=== PATIENT | male | born 1950 | race Caucasian/White ===

== ENCOUNTER → 2023-09-01 13:38 | Outpatient (REF) | payer MEDICARE, SELFPAY | LOC: RAD 13:38 | PROVIDERS: ATTENDING PHYSICIAN Student in an Organized Health Care Education/Training Program | DX: R06.09 Other forms of dyspnea (principal); R06.89 Other abnormalities of breathing | CPT/HCPCS: 71046 ==

== ENCOUNTER → 2023-09-08 07:29 | Outpatient (REF) | payer MEDICARE, SELFPAY | LOC: HWRAD 07:29 | PROVIDERS: ATTENDING PHYSICIAN Student in an Organized Health Care Education/Training Program | DX: J90 Pleural effusion, not elsewhere classified (principal); R06.02 Shortness of breath | CPT/HCPCS: 71250 ==

== ENCOUNTER → 2023-09-11 09:50 | Outpatient (REF) | payer MEDICARE, SELFPAY ==
[2023-09-11 10:07] VITALS: BP 113/76; BP_SYST 65
[2023-09-11 10:31] VITALS: BP 103/75
[2023-09-11 10:56] LABS: Body Fluid pH 7.48
[2023-09-11 11:20] LABS: Body Fluid WBC 111 /CUMM
[2023-09-11 11:45] LABS: Body Fluid Glucose 111 mg/dl; Body Fluid LDH 115 U/L; Body Fluid Protein 3.7 g/dl
[2023-09-11 11:53] LABS: Body Fluid Second Tech EF
== END ==
LOC: RADI 09:50
PROVIDERS: ATTENDING PHYSICIAN Internal Medicine Critical Care Medicine; FAMILY PHYSICIAN Student in an Organized Health Care Education/Training Program
DX: J90 Pleural effusion, not elsewhere classified (principal)
CPT/HCPCS: 88305; 32555; 71045; 82945; 83615; 83986; 84157; 87015; 87070; 87102; 87116; 87205; 87206; 88112; 89051

== ENCOUNTER → 2023-09-19 10:35 | Outpatient (REF) | payer MEDICARE, SELFPAY ==
[2023-09-19 11:05] VITALS: BP 114/78; BP_SYST 70
[2023-09-19 11:25] VITALS: BP 94/62; BP_SYST 66
[2023-09-19 11:45] VITALS: BP 94/62
== END ==
LOC: RADI 10:35
PROVIDERS: ATTENDING PHYSICIAN Internal Medicine Critical Care Medicine; FAMILY PHYSICIAN Student in an Organized Health Care Education/Training Program
DX: J90 Pleural effusion, not elsewhere classified (principal)
CPT/HCPCS: 88305; 32555; 71045; 88112; 88341; 88342

== ENCOUNTER → 2023-09-26 10:57 | Outpatient (REF) | payer MEDICARE, SELFPAY ==
[2023-09-26 11:10] VITALS: BP 115/62; BP_SYST 63
[2023-09-26 11:31] VITALS: BP 112/69
== END ==
LOC: RADI 10:57
PROVIDERS: ATTENDING PHYSICIAN Internal Medicine Critical Care Medicine; FAMILY PHYSICIAN Student in an Organized Health Care Education/Training Program
DX: J90 Pleural effusion, not elsewhere classified (principal); R06.02 Shortness of breath
CPT/HCPCS: 88305; 32555; 71045; 88112; 88341; 88342

== ENCOUNTER → 2023-10-01 10:32 | Outpatient (REF) | payer MEDICARE, SELFPAY | LOC: DHCBC MAIN 10:32 | PROVIDERS: ATTENDING PHYSICIAN Internal Medicine Critical Care Medicine; FAMILY PHYSICIAN Student in an Organized Health Care Education/Training Program | DX: R06.02 Shortness of breath (principal) | CPT/HCPCS: 93306 ==

== ENCOUNTER → 2023-10-07 09:12 | Outpatient (REF) | payer MEDICARE, SELFPAY | LOC: HWRAD 09:12 | PROVIDERS: ATTENDING PHYSICIAN Internal Medicine Critical Care Medicine; FAMILY PHYSICIAN Student in an Organized Health Care Education/Training Program | DX: R06.02 Shortness of breath (principal); J90 Pleural effusion, not elsewhere classified | CPT/HCPCS: 76700; 93975 ==

== ENCOUNTER → 2023-10-10 10:40 | Outpatient (REF) | payer MEDICARE, SELFPAY | LOC: RADI 10:40 | PROVIDERS: ATTENDING PHYSICIAN Internal Medicine Critical Care Medicine; FAMILY PHYSICIAN Student in an Organized Health Care Education/Training Program | DX: J90 Pleural effusion, not elsewhere classified (principal); R06.02 Shortness of breath | CPT/HCPCS: 32555; 71045 ==

== ENCOUNTER → 2023-10-20 10:05 | Outpatient (REF) | payer MEDICARE, SELFPAY ==
[2023-10-20 10:26] VITALS: BP 96/53; BP_SYST 88
[2023-10-20 10:50] VITALS: BP 110/72
== END ==
LOC: RADI 10:05
PROVIDERS: ATTENDING PHYSICIAN Internal Medicine Critical Care Medicine; FAMILY PHYSICIAN Student in an Organized Health Care Education/Training Program
DX: J90 Pleural effusion, not elsewhere classified (principal); R06.02 Shortness of breath
CPT/HCPCS: 32555; 71045; 71250

== ENCOUNTER → 2023-10-22 | Outpatient (REF) | payer MEDICARE, SELFPAY | LOC: DHSLP | PROVIDERS: ATTENDING PHYSICIAN Internal Medicine Critical Care Medicine; FAMILY PHYSICIAN Internal Medicine Critical Care Medicine | DX: G47.33 Obstructive sleep apnea (adult) (pediatric) (principal) | CPT/HCPCS: 95800 ==

== ENCOUNTER → 2023-11-10 10:01 | Outpatient (REF) | payer MEDICARE, SELFPAY ==
[2023-11-10 10:23] VITALS: BP 117/69; BP_SYST 55
[2023-11-10 10:57] VITALS: BP 100/74; BP_SYST 60
[2023-11-10 11:14] VITALS: BP 100/74
== END ==
LOC: RADI 10:01
PROVIDERS: ATTENDING PHYSICIAN Internal Medicine Critical Care Medicine
DX: J90 Pleural effusion, not elsewhere classified (principal); R06.02 Shortness of breath
CPT/HCPCS: 32555; 71045

== ENCOUNTER → 2023-11-19 10:05 | Outpatient (REF) | payer MEDICARE, SELFPAY ==
[2023-11-19 10:30] VITALS: BP 101/66; BP_SYST 60
[2023-11-19 11:05] VITALS: BP 109/65; BP_SYST 62
[2023-11-19 11:14] VITALS: BP 109/65
== END ==
LOC: RADI 10:05
PROVIDERS: ATTENDING PHYSICIAN Internal Medicine Critical Care Medicine; FAMILY PHYSICIAN Student in an Organized Health Care Education/Training Program
DX: J90 Pleural effusion, not elsewhere classified (principal); R06.02 Shortness of breath
CPT/HCPCS: 32555; 71045

== ENCOUNTER → 2023-12-03 06:49 | Outpatient (REF) | payer MEDICARE, SELFPAY ==
[2023-12-03] VITALS (11 sets, daily range): BP systolic 64–117; BP diastolic 69–80
[2023-12-03] MEDS: ANCEF 10 IV (08:20)
[2023-12-03 10:44] LABS: Body Fluid WBC 107 /CUMM
[2023-12-03 10:45] LABS: Body Fluid Mononuclear 97.2 %; Body Fluid Polymorphonuclear 2.8 %
[2023-12-03 10:47] LABS: Body Fluid Second Tech SS
== END ==
LOC: RADI 06:49
PROVIDERS: ATTENDING PHYSICIAN Internal Medicine Critical Care Medicine; FAMILY PHYSICIAN Student in an Organized Health Care Education/Training Program
DX: J90 Pleural effusion, not elsewhere classified (principal)
CPT/HCPCS: 32550; 75989; 89051; 99152; 99153; C1729; C1769

== ENCOUNTER 2023-12-12 06:12 | Day surgery (SDC) | payer MEDICARE, SELFPAY ==
[2023-11-28 10:20] VITALS: BMI 31.0
[2023-11-28 10:58] LABS: % Basophils 0.4 % (0-2); % Eosinophils 1.5 % (0-6); % Immature Granulocytes 0.4 % (0-0.5); % Monocytes 8.3 % (1.7-9.3); % Neutrophils 78.4 % (42.2-75.2); Absolute Eosinophils 0.1 10^3/uL (0-0.7); Absolute Lymphocytes 0.6 10^3/uL (1.2-3.4); Absolute Monocytes 0.4 10^3/uL (0.1-0.6); Absolute Neutrophils 4.1 10^3/uL (1.4-6.5); Hematocrit 34.6 % (39.0-52.0); Hemoglobin 11.3 g/dL (13.0-18.0); Mean Corp Hgb Conc. 32.7 g/dL (33.0-37.0); Mean Corpuscular Volume 95.1 fL (80.0-94.0); Mean Platelet Volume 11.3 fL (7.4-10.4); Nucleated Red Blood Cells % 0 % (-); Platelet Count 121 10^3/uL (130-400); Red Blood Cell Count 3.64 10^6/uL (4.70-6.10); Red Cell Dist. Width 16.6 % (11.5-14.5); White Blood Cell Count 5.3 10^3/uL (4.8-10.8)
[2023-11-28 11:37] LABS: ALT (SGPT) 22 U/L (0-50); AST (SGOT) 42 U/L (17-59); Albumin 3.6 g/dl (3.5-5.0); Alkaline Phosphatase 169 U/L (38-126); Blood Urea Nitrogen 63 mg/dl (9-20); Carbon Dioxide 26 mmol/L (22-30); Chloride 98 mmol/L (98-107); Estimated Creatinine Clearance 34 ml/min; Glucose 95 mg/dl (70-99); Sodium 135 mmol/L (135-145); Total Bilirubin 1.6 mg/dl (0.2-1.3); Total Protein 6.7 g/dl (6.3-8.2); eGFR 30.85
[2023-12-12] VITALS (9 sets, daily range): BP systolic 106–115; BP diastolic 62–69
--- NOTE | 2023-12-12 09:21 | ITS.CL.CATH ---
Administrative Intern - Catheterization
Cardiac Catheterization
Procedure Report:
RIGHT HEART CATHETERIZATION
Date of Procedure: 12/12/2023
Referring: Teresa Adamson M.D.
INDICATION: CHF, chronic kidney disease.
ACCESS:
5 [place] antecubital fossa using a modified Seldinger technique under ultrasound guidance.
CATHETERS:
5 [place] balloon wedge
PROCEDURE:
The patient was prepped and draped in standard sterile fashion. The area for antecubital access was anesthetized with 1% lidocaine. The right basilic vein was identified under ultrasound guidance then accessed using a modified Seldinger technique.
A 5 [place] sheath was inserted into the basilic vein. A 5 [place] balloon wedge catheter was advanced through the sheath into the superior vena cava. An SVC oxygen saturation was drawn. The balloon wedge catheter was advanced into the pulmonary
artery and a pulmonary artery oxygen saturation was drawn. Arterial oxygen saturation was assumed from pulse oximetry. Cardiac output was calculated using the Cassandra equation. The PA, wedge, RV and RA pressures were measured on pullback. The balloon
wedge catheter was removed. The 5 [place] sheath was removed and manual pressure was held for hemostasis.
Weight (kg): 95.3
PA (s/d/x mmHg): 68/29/39
PCWP (a/v/x mmHg): 33/50/30
RV (s/x mmHg): 60/27
RA (a/v/x mmHg): 32/31/28
SVC SvO2 (%): 50.9
IVC SvO2 (%): Not obtained.
RA SvO2 (%): Not obtained.
RV SvO2 (%): Not obtained.
PA SvO2 (%): 54.5
SaO2 (%): 96.0 (assumed)
Hbg (g/dL): 11.0
Cassandra
CO (liters/minute): 3.77
CI (liters/minute/m2): 1.79
Thermodilution
CO (liters/minute): Not obtained.
CI (liters/minute/m2): Not obtained.
TPG (mmHg): 9
PVR (Guido Units): 2.39
AVO2 Difference (Volume %): 6.21
Radiation (mGy): 9.54
DAP (cm2.Gy): 3.93
Fluoroscopy time (minutes): 1.9
CONCLUSION:
1. Severely elevated filling pressures (PCWP = 30 mmHg at 95.3 kg).
2. Severe, postcapillary pulmonary hypertension (68/29/39 mmHg, PVR = 2.39 Guido units).
3. Severely elevated V wave on wedge pressure, concerning for mitral valve regurgitation versus noncompliant left atrium.
4. Severely depressed systolic function (cardiac index = 1.79 L/min/m�).
RECOMMENDATIONS:
1. Expectant management after right heart catheterization via right antecubital approach.
2. Increase furosemide to 80 mg p.o. twice daily.
3. We will give a dose of furosemide 80 mg IV here.
4. Guideline directed medical therapy as hemodynamics will permit.
5. BMP in 1 week to monitor renal function and potassium levels.
6. Stable for outpatient follow-up.
Copy to: Teresa Adamson M.D., Yojana Clark M.D., Slime Heard M.D., Francie Chacko M.D.
Favio Hopkins D.O., FACC, FACP
[2023-12-12] MEDS: LASIX 80 MG IV (10:40)
--- NOTE | 2023-12-12 11:37 | PTCARENOTE ---
Pt recd post RHC. stat ECG completed. pt and family updated and understood elevated heart pressures. 80mg of lasix IV ordered and given . Pt voided 300ml of clear yellow uriine prior to d/c . Urinal sent with pt. Lasix dose increased and
understand, prior to d/c rt bachial site bleed a little and pressure applies . another DSD applied and no other concerns . Area soft non tender.
== END 2023-12-12 11:41 | disposition home or self-care (01) ==
LOC: CATH 06:12
PROVIDERS: ATTENDING PHYSICIAN Internal Medicine Cardiovascular Disease; FAMILY PHYSICIAN Student in an Organized Health Care Education/Training Program; OTHER PHYSICIAN Internal Medicine Cardiovascular Disease
DX: I25.5 Ischemic cardiomyopathy (principal); I13.0 Hypertensive heart and chronic kidney disease with heart failure and stage 1 through stage 4 chronic kidney disease, or unspecified chronic kidney disease; N18.30 Chronic kidney disease, stage 3 unspecified; I50.32 Chronic diastolic (congestive) heart failure; E78.5 Hyperlipidemia, unspecified; I48.0 Paroxysmal atrial fibrillation; I25.10 Atherosclerotic heart disease of native coronary artery without angina pectoris; I25.2 Old myocardial infarction; Z95.1 Presence of aortocoronary bypass graft; I27.29 Other secondary pulmonary hypertension; G47.33 Obstructive sleep apnea (adult) (pediatric); J90 Pleural effusion, not elsewhere classified; I73.00 Raynaud's syndrome without gangrene; E66.9 Obesity, unspecified; Z68.31 Body mass index [BMI] 31.0-31.9, adult; Z79.82 Long term (current) use of aspirin; Z79.84 Long term (current) use of oral hypoglycemic drugs
CPT/HCPCS: 36415; 80053; 85025; 93005; 93451; C1894

== ENCOUNTER → 2024-01-06 09:18 | Outpatient (REF) | payer MEDICARE, SELFPAY | LOC: RAD 09:18 | PROVIDERS: ATTENDING PHYSICIAN Internal Medicine Critical Care Medicine | DX: J90 Pleural effusion, not elsewhere classified (principal) | CPT/HCPCS: 71046 ==

== ENCOUNTER → 2024-01-20 11:59 | Outpatient (REF) | payer MEDICARE, SELFPAY ==
--- NOTE | 2024-01-20 12:20 | PTCARENOTE ---
1205 Patient to IR holding area via w/c. States last 2 times drained right ascept he had pain at insertion site, thinks catheter is out several inches.
Dressing removed and catheter cuff visible. Dr Rodriguez updated. Chest X-ray ordered.
--- NOTE | 2024-01-20 13:35 | PTCARENOTE ---
1235 Chest X-ray reviewed by Dr Gutierrez. Catheter removed by technologist and dressing applied.
--- NOTE | 2024-01-20 13:36 | PTCARENOTE ---
1250 When discharging patient discovered dressing saturated as well as shirt. Dressing removed and pressure applied. Abd and tegaderm to site. Requested to wait to observe for drainage.
--- NOTE | 2024-01-20 13:38 | PTCARENOTE ---
1315 after multiple dressing changes old site steri stripped and new dressing to site.
--- NOTE | 2024-01-20 14:34 | PTCARENOTE ---
1340 Dressing again changed,. ABD and large tegaderm to site. Sitting upright. Sts feels fine/ Dr Rodriguez aware of multiple dressing changes.
--- NOTE | 2024-01-20 14:36 | PTCARENOTE ---
1410 current dressing dry and intact. Requested patient to wait additional 5 minutes and move around more.
== END ==
LOC: RADI 11:59
PROVIDERS: ATTENDING PHYSICIAN Radiology Vascular & Interventional Radiology; REFERRING PHYSICIAN Internal Medicine Critical Care Medicine
DX: Z46.82 Encounter for fitting and adjustment of non-vascular catheter (principal)
CPT/HCPCS: 71045

== ENCOUNTER → 2024-01-22 13:04 | Outpatient (REF) | payer MEDICARE, SELFPAY ==
[2024-01-22 13:27] VITALS: BP 106/66; BP_SYST 59
[2024-01-22] MEDS: ANCEF 10 IV (13:49)
[2024-01-22 14:54] VITALS: BP 106/75
== END ==
LOC: RADI 13:04
PROVIDERS: ATTENDING PHYSICIAN Internal Medicine Critical Care Medicine
DX: J90 Pleural effusion, not elsewhere classified (principal); Z53.8 Procedure and treatment not carried out for other reasons

== ENCOUNTER → 2024-01-27 09:55 | Outpatient (REF) | payer OTHER, SELFPAY | LOC: RADI 09:55 | PROVIDERS: ATTENDING PHYSICIAN Internal Medicine Critical Care Medicine; FAMILY PHYSICIAN Student in an Organized Health Care Education/Training Program | DX: J90 Pleural effusion, not elsewhere classified (principal); Z53.8 Procedure and treatment not carried out for other reasons ==

== ENCOUNTER → 2024-02-06 06:24 | Outpatient (REF) | payer MEDICARE, SELFPAY | LOC: RADI 06:24 | PROVIDERS: ATTENDING PHYSICIAN Internal Medicine Critical Care Medicine | DX: J90 Pleural effusion, not elsewhere classified (principal); R18.8 Other ascites; Z53.8 Procedure and treatment not carried out for other reasons | CPT/HCPCS: 76604; 76705 ==

== ENCOUNTER 2024-02-06 08:11 | Emergency (ER) | payer MEDICARE, SELFPAY ==
[2024-02-06] VITALS (8 sets, daily range): BP systolic 51–114; BP diastolic 53–68
--- NOTE | 2024-02-06 08:42 | ED.GENMED ---
History of Present Illness
General
Chief Complaint: Abdominal Symptoms
Source: patient and records
Exam Limitations: none
Time Seen by Provider: 02/06/24 08:30
Nursing documentation reviewed up to this point in time: agreed with
History of Present Illness
History of Present Illness:
73-year-old male with a past medical history of hypertension, CHF, remote history of alcohol use (28 years ago he says) who presents to the emergency room for evaluation of abdominal distention. Patient says that he has had a catheter to drain
recurrent pleural effusion; he says that the catheter was dislodged about a month ago. He says that he has been to interventional radiology 3 times in the past month to attempt to have it replaced but pleural effusion does not seem to be
reaccumulating; today went to see if it needed replacement but was told that there was no significant effusion however he did have significant abdominal ascites which is a new issue for him and so he was sent to the emergency room. He says that he
has noticed increasing abdominal distention over the past month or so. He has not had any abdominal pain. He says that he does feel some trouble taking a deep breath due to abdominal distention. He denies any other symptoms such as fevers or
chills. He denies any nausea or vomiting. He denies any known liver issues and says that he is 28 years sober. He did notably have a cardiac catheterization with Dr. Mcmillan on 12/12/2023 which showed severe CHF.
Past History
Past History
ED Past Medical History: CAD, CHF and HTN
ED Past Surgical History: Cardiac (CABG), Cholecystectomy and Other (Hernia gallbladder)
Social History
Tobacco: Non-smoker
Alcohol: Former
Drug: None
Personal:
Living: with family
Employment: Retired
Family History
Family History: Hypertension
Review of Systems
Review of Systems
All Other Systems: ROS reviewed and negative except as documented in HPI and ROS
Constitutional: Denies fever
Respiratory: Reports trouble breathing; Denies cough
Cardiac: Denies chest pain
ABD/GI: Reports other (Abdominal distention); Denies abdominal pain, nausea or vomiting
: Denies flank pain
Musculoskeletal: Reports edema (Chronic); Denies neck pain or back pain
Neurological: Denies dizzy or headache
Phy Exam
Physical Exam
Physical Exam:
General: Awake, alert, oriented x3; no acute distress
Head: Normocephalic, atraumatic
Eyes: Conjunctiva normal, sclera anicteric
Throat: Airway intact, handling secretions
Neck: Trachea midline, supple without meningismus
Lungs: Somewhat diminished at the lung bases bilaterally; supple respiratory rate and work of breathing
Heart: Regular rate and rhythm
Abd: Soft, moderately distended with positive fluid wave, nontender to deep palpation
Neuro: No gross deficit
Skin: no rash
Extremities: Bilateral lower extremity edema, distal extremities are warm and well-perfused
Scores
Heart Failure Risk
Heart Failure Risk Score: Not Applicable
Heart Score for Chest Pain Patients
STEMI patient?: Not applicable
Withdrawal Assessment of Alcohol
Withdrawal Assessment Completed?: Not applicable
Course
Orders/Labs/Results
Orders:
Orders
02/06/24 08:26
Electrocardiogram (*1) Urgent
Reason for Study: Bradycardia / Tachycardia
02/06/24 08:27
EKG- Treatment ONCE
02/06/24 08:38
BNP [NT-proBNP] Urgent
CMP [Comprehensive Metabolic Panel] Urgent
Complete Blood Count/With Diff Urgent
02/06/24 08:39
IRAD CONSULT Routine
Consulting Provider: Remy Rodriguez
Was physician already notified: Yes
Reason for Consult/Procedure: paracentesis
Acknowledgement that appropriate orders are entered: Yes
CR Chest - 2 Views Urgent
Comment:
Reason For Exam: CHF
02/06/24 09:00
PTT Urgent
Prothrombin Time Urgent
02/06/24 09:17
Bedside Cytology Routine
Date Specimen was Collected: 02/06/24
Time Specimen was Collected: 10:30
Source: Peritoneal Fluid
Clinical Impression: cardiac ascites
IRAD Cytology Routine
Date Specimen was Collected: 02/06/24
Time Specimen was Collected: 10:30
Source: Peritoneal Fluid
Clinical Impression: cardiac ascites
02/06/24 10:33
Body Fluid Albumin Routine
Fluid Source: Peritoneal (Ascites)
Date Specimen was Collected: 02/06/24
Time Specimen was Collected: 10:30
Body Fluid Cell Count Routine
What is the Body Fluid: peritoneal fluid
Date Specimen was Collected: 02/06/24
Time Specimen was Collected: 10:30
Body Fluid LDH Routine
Fluid Source: Peritoneal (Ascites)
Date Specimen was Collected: 02/06/24
Time Specimen was Collected: 10:30
Body Fluid Protein Routine
Fluid Source: Peritoneal (Ascites)
Date Specimen was Collected: 02/06/24
Time Specimen was Collected: 10:30
Fluid Culture with Gram Stain Routine
BERT Source: Peritoneal Fluid
Specimen Description:
Date Specimen was Collected: 02/06/24
Time Specimen was Collected: 10:30
02/06/24 12:00
Albumin Human 25% 100 ml [Flexbumin] 25 grams in 100 ml IV TODAY
02/06/24 13:30
Albumin Human 25% 50 ml [Flexbumin] 12.5 grams in 50 ml IV TODAY
Abnormal Lab Results
02/06/24 02/06/24
08:38 09:00
RBC 3.77 L 10^6/uL
(4.70-6.10)
Hgb 11.9 L g/dL
(13.0-18.0)
Hct 35.7 L %
(39.0-52.0)
MCV 94.7 H fL
(80.0-94.0)
MCH 31.6 H pg
(27.0-31.0)
RDW 16.4 H %
(11.5-14.5)
Plt Count 115 L 10^3/uL
(130-400)
MPV 11.2 H fL
(7.4-10.4)
Absolute Lymphs (auto) 0.6 L 10^3/uL
(1.2-3.4)
Neutrophils % 76.8 H %
(42.2-75.2)
Lymphocytes % 10.7 L %
(20.5-51.1)
Monocytes % 11.0 H %
(1.7-9.3)
PT 17.1 H Sec
(11.4-14.6)
APTT 40.1 H Sec
(23.4-35.0)
Sodium 134 L mmol/L
(135-145)
Chloride 97 L mmol/L
(98-107)
BUN 59 H mg/dl
(9-20)
Creatinine 1.4 H mg/dL
(0.7-1.3)
Total Bilirubin 1.6 H mg/dl
(0.2-1.3)
Alkaline Phosphatase 135 H U/L
(38-126)
02/06/24 08:38
02/06/24 08:38
Vital Signs
Initial and Last Documented VS:
Initial Vital Signs
Temp Pulse Resp BP Pulse Ox
36.8 C 56 16 114/63 95
02/06/24 08:15 02/06/24 08:15 02/06/24 08:15 02/06/24 08:15 02/06/24 08:15
Last Documented Vital Signs
Temp Pulse Resp BP Pulse Ox
36.4 C 62 16 107/64 98
02/06/24 10:00 02/06/24 13:00 02/06/24 13:00 02/06/24 13:00 02/06/24 13:00
MDM/Problems Addressed
Differential Diagnosis Includes:
Abdominal ascites�differential would include cirrhosis, cardiac ascites, chronic ascites, SBP, malignancy
MDM/Problems Addressed:
73-year-old male with history as documented presents with increasing abdominal distention over the past month; had been in IR to have pleural effusion drained but there is no significant pleural effusion and noted to have new onset ascites and sent
to the ER for evaluation. He denies any abdominal pain or any other symptoms aside from some difficulty with deep breaths. Vital signs noted within normal limits. Will check basic labs including CBC and CMP, proBNP. Will check chest x-ray.
Check an EKG. Will send for paracentesis and send peritoneal fluid studies. Suspect likely cardiac ascites based on clinical picture. Reassess after the above.
Labs reviewed: CBC shows stable anemia, stable thrombocytopenia. CMP shows creatinine 1.4 which is baseline. proBNP 5600. Patient was sent [facility] for paracentesis and had 5600 cc of fluid drained. Discussed with GI we will order 37.5 g IV albumin
25%. Awaiting fluid analysis studies. Patient feeling well on reassessment after paracentesis. Feels that he is breathing easier.
Fluid analysis reviewed�patient with less than 500 WBCs, less than 250 PMNs, serum ascites albumin gradient is greater than 2, total protein greater than 2.5�these findings are consistent with cardiac ascites which was clinical suspicion. He is
already on medical therapy for congestive heart failure and in fact he has a follow-up appointment with cardiology within the next few days. I placed a call cardiology as well as to nephrology and discussed�patient had been on Lasix 80 mg twice
daily, nephrology switched to torsemide 40 mg twice daily about 2 weeks ago; will plan to add metolazone 2.5 mg 3 times per week, follow-up BMP on Friday and patient is scheduled to have cardiology visit on Friday at 9:30 AM. I think he is
stable for discharge at this point in time can follow-up as scheduled in the office. He feels comfortable with this�he is feeling much better. Spoke about return precautions and all questions answered.
Chronic conditions affecting care:
CHF
*Radiology
Radiology exam reviewed: radiology read reviewed
*Pulse Oximetry
Patient hypoxic: no
*EKG
Interpreted by ED Provider?: Yes
Comparison EKG: no changes
Heart Rate: 54
Rate: bradycardiac
Rhythm: sinus
[place]: right axis deviation
Interval: normal interval
QRS Pattern: wide non-specific
Ischemia: no ischemia
*Critical Care Note
Total Time (30-74mins, 75-104mins- exclusive of procedures): Not Applicable
Data Reviewed
Review of Other/Old Records Reveals: Labs, Records and Testing
Source: patient and records
Patient Management
Social determinants of health affecting care: Strong social support
Discussion with other providers: [employer] (Discussed with interventional radiology, discussed with gastroenterology, discussed with cardiology, discussed with nephrology)
ED Attending Note
-
Portions of this chart may have been created with voice recognition software.� Occasional wrong word or��sound alike� substitutions may have occurred due to the inherent limitations of voice recognition software.
Discharge Plan
Departure
Patient Disposition: Home (Routine Discharge)
Date of Disposition: 02/06/24
Time of Disposition: 12:09
Patient with high blood pressure during this ER visit?: No
Discharge Problem:
Abdominal ascites, CHF (congestive heart failure)
Instructions: Fluid in the Belly (Ascites) (DC), Abdominal Paracentesis (DC)
Prescriptions:
New
torsemide 20 mg tablet
40 mg PO BID 30 Days Qty: 120 0RF
metolazone 2.5 mg tablet
2.5 mg PO Q OTHER DAY Qty: 30 0RF
Discontinued
furosemide [Lasix] 80 mg tablet
80 mg PO BID Qty: 60 5RF
No Action
allopurinol 300 mg tablet
300 mg PO DAILY
cholecalciferol (vitamin D3) [Vitamin D3] 25 mcg (1,000 unit) Capsule
50 mcg PO DAILY
atorvastatin 80 mg tablet
80 mg PO DAILY
dapagliflozin propanediol [Farxiga] 10 mg tablet
10 mg PO DAILY
melatonin 5 mg Tablet
10 mg PO HS PRN (Reason: Sleep)
sennosides [senna] 8.6 mg Tablet
17.2 mg PO BID
aspirin 81 mg Capsule
81 mg PO DAILY
Referrals:
Yojana Clark MD [Family Provider] -
Aguila Adamson MD [Active] - 02/11/24 9:40 am
Activity Restrictions/Additional Instructions:
Thank you for visiting the Emergency Department at [facility].
1. Please schedule a follow up appointment as directed. Call first thing tomorrow morning to make an appointment.
2. If indicated, please take your medications as instructed and indicated on discharge paperwork.
3. If any of your symptoms do not improve, or persist, or become more severe within 6-12 hours, please return to the emergency department for further care.
4. Please return to the emergency department if you develop a headache, neck pain/stiffness, fever greater than 100.4F, chest pain, shortness of breath, persistent nausea, vomiting, slurred speech, difficulty walking, numbness/tingling, weakness,
signs of infection or any other symptoms that are worrisome to you.
Please call [phone] if you have any questions.
Interventions
Interventions:
*Risk Screen - Suicide Last Done: 02/06/24 08:15
*General Assessment Last Done: 02/06/24 08:15
*Neglect/Abuse Screening Last Done: 02/06/24 08:15
ED- Fall Risk Assessment Last Done: 02/06/24 08:25
*ED COVID-19 Vaccine History Last Done: 02/06/24 08:25
OY-Wbkgge-Ihcpsbefrw Assessment Last Done: 02/06/24 08:55
Discharge Date and Time
Print Language: TAMAZIGHT
[2024-02-06 09:12] LABS: % Basophils 0.4 % (0-2); % Eosinophils 0.7 % (0-6); % Immature Granulocytes 0.4 % (0-0.5); % Lymphocytes 10.7 % (20.5-51.1); % Neutrophils 76.8 % (42.2-75.2); Absolute Lymphocytes 0.6 10^3/uL (1.2-3.4); Absolute Monocytes 0.6 10^3/uL (0.1-0.6); Absolute Neutrophils 4.3 10^3/uL (1.4-6.5); Hematocrit 35.7 % (39.0-52.0); Hemoglobin 11.9 g/dL (13.0-18.0); Mean Corp Hgb Conc. 33.3 g/dL (33.0-37.0); Mean Corpuscular Hgb 31.6 pg (27.0-31.0); Mean Corpuscular Volume 94.7 fL (80.0-94.0); Mean Platelet Volume 11.2 fL (7.4-10.4); Nucleated Red Blood Cells % 0 % (-); Platelet Count 115 10^3/uL (130-400); Red Blood Cell Count 3.77 10^6/uL (4.70-6.10); Red Cell Dist. Width 16.4 % (11.5-14.5); White Blood Cell Count 5.5 10^3/uL (4.8-10.8)
[2024-02-06 09:36] LABS: NT-proBNP 5650 pg/ml
[2024-02-06 09:55] LABS: ALT (SGPT) 19 U/L (0-50); AST (SGOT) 46 U/L (17-59); Albumin 4.1 g/dl (3.5-5.0); Alkaline Phosphatase 135 U/L (38-126); Blood Urea Nitrogen 59 mg/dl (9-20); Calcium 9.4 mg/dl (8.4-10.2); Carbon Dioxide 26 mmol/L (22-30); Chloride 97 mmol/L (98-107); Estimated Creatinine Clearance 52 ml/min; Glucose 91 mg/dl (70-99); Potassium 3.5 mmol/L (3.5-5.1); Sodium 134 mmol/L (135-145); Total Bilirubin 1.6 mg/dl (0.2-1.3); Total Protein 6.9 g/dl (6.3-8.2); eGFR 52.74
[2024-02-06 10:06] LABS: INR 1.41; PT 17.1 Sec (11.4-14.6)
[2024-02-06 10:07] LABS: APTT 40.1 Sec (23.4-35.0)
[2024-02-06 11:20] LABS: Body Fluid WBC 155 /CUMM
[2024-02-06 11:22] LABS: Body Fluid Albumin 1.9 g/dl; Body Fluid LDH 111 U/L; Body Fluid Protein 3.7 g/dl; Body Fluid Second Tech EM
[2024-02-06] MEDS: FLEXBUMIN 100 IV (12:08)
[2024-02-06] MEDS: FLEXBUMIN 50 IV (13:57)
== END 2024-02-06 15:41 | disposition home or self-care (01) ==
LOC: EMR 08:11
PROVIDERS: CONSULT PHYSICIAN Radiology Vascular & Interventional Radiology; EMERGENCY PHYSICIAN Emergency Medicine; FAMILY PHYSICIAN Student in an Organized Health Care Education/Training Program
DX: I50.9 Heart failure, unspecified (principal); R18.8 Other ascites
CPT/HCPCS: 99285; 96374; 88305; 49083; 71046; 80053; 82042; 83615; 83880; 84157; 85025; 85610; 85730; 87015; 87070; 87205; 88112; 89051; 93005; P9047

== ENCOUNTER 2024-03-01 18:44 | Emergency (ER) | payer MEDICARE, SELFPAY ==
[2024-03-01 18:56] VITALS: BP 119/66
--- NOTE | 2024-03-01 19:36 | ED.GENMED ---
History of Present Illness
General
Chief Complaint: Skin Problem
Time Seen by Provider: 03/01/24 19:15
History of Present Illness
History of Present Illness:
73-year-old male presents the emergency department for evaluation of a persistent bleeding skin tear to the left forearm. He feels as though it was caused by removal of the bandage that had been placed by the hospital previously. He is on
anticoagulants
Past History
Past History
ED Past Medical History: CAD, CHF and HTN
ED Past Surgical History: Cardiac (CABG), Cholecystectomy and Other (Hernia gallbladder)
Social History
Tobacco: Non-smoker
Alcohol: Former
Drug: None
Personal:
Living: with family
Employment: Retired
Family History
Family History: Hypertension
Review of Systems
Review of Systems
Allergies reviewed?: Yes
All Other Systems: ROS reviewed and negative except as documented in HPI and ROS
Phy Exam
Physical Exam
Physical Exam:
GEN: Well appearing, NAD, WDWN
HEENT: Oral mucosa moist, no scleral icterus
Cardiac: Regular rate
Lung: No respiratory distress, no tachypnea
MSK: No gross deformity or injuries
Skin: Good color, no pallor or jaundice, no rashes. 2 cm x 1 cm superficial skin tear to the left dorsal forearm with active mild bleeding
Neuro: AO x3, moves all extremities freely
Psych: Calm, cooperative
Course
Orders/Labs/Results
Orders:
Orders
03/01/24 19:04
Acetaminophen [Tylenol] 1,000 mg .ROUTE .STK-MED ONE
Vital Signs
Initial and Last Documented VS:
Initial Vital Signs
Temp Pulse Resp BP Pulse Ox
98 F 70 16 119/66 100
03/01/24 18:56 03/01/24 18:56 03/01/24 18:56 03/01/24 18:56 03/01/24 18:56
Last Documented Vital Signs
Temp Pulse Resp BP Pulse Ox
98 F 70 16 119/66 100
03/01/24 18:56 03/01/24 18:56 03/01/24 18:56 03/01/24 18:56 03/01/24 18:56
MDM/Problems Addressed
MDM/Problems Addressed:
Surgicel dressing placed, educated patient on supportive care
*Critical Care Note
Total Time (30-74mins, 75-104mins- exclusive of procedures): Not Applicable
ED Attending Note
-
Portions of this chart may have been created with voice recognition software.� Occasional wrong word or��sound alike� substitutions may have occurred due to the inherent limitations of voice recognition software.
Discharge Plan
Departure
Patient Disposition: Home (Routine Discharge)
Date of Disposition: 03/01/24
Time of Disposition: 19:37
Patient with high blood pressure during this ER visit?: No
Discharge Problem:
Abrasion of forearm, left
Prescriptions:
No Action
allopurinol 300 mg tablet
300 mg PO DAILY
cholecalciferol (vitamin D3) [Vitamin D3] 25 mcg (1,000 unit) Capsule
50 mcg PO DAILY
atorvastatin 80 mg tablet
80 mg PO DAILY
dapagliflozin propanediol [Farxiga] 10 mg tablet
10 mg PO DAILY
melatonin 5 mg Tablet
10 mg PO HS PRN (Reason: Sleep)
sennosides [senna] 8.6 mg Tablet
17.2 mg PO BID
aspirin 81 mg Capsule
81 mg PO DAILY
torsemide 20 mg tablet
40 mg PO BID 30 Days Qty: 120 0RF
metolazone 2.5 mg tablet
2.5 mg PO Q OTHER DAY Qty: 30 0RF
Activity Restrictions/Additional Instructions:
The Surgicel dressing (the mesh) will dissolve over 7-14 days into the wound. This should allow your body to form a clot. Do not forcibly remove the mesh. You may wash the area around the wound, but do not scrub or apply soaps directly to the area
If the dressing falls off in less than 7 days, you should have enough healing tissue to prevent further bleeding
Interventions
Interventions:
*Risk Screen - Suicide Last Done: 03/01/24 18:56
*General Assessment Last Done: 03/01/24 18:56
*Neglect/Abuse Screening Last Done: 03/01/24 18:56
*Nursing Disposition Last Done: 03/01/24 20:22
ED-Skin Assessment Last Done: 03/01/24 20:21
Discharge Date and Time
Discharge Date/Time: 03/01/24 20:23
Print Language: VINCENTIAN
== END 2024-03-01 20:23 | disposition home or self-care (01) ==
LOC: EMR 18:44
PROVIDERS: EMERGENCY PHYSICIAN Emergency Medicine
DX: S50.812A Abrasion of left forearm, initial encounter (principal); X58.XXXA Exposure to other specified factors, initial encounter; I25.10 Atherosclerotic heart disease of native coronary artery without angina pectoris; I11.0 Hypertensive heart disease with heart failure; I50.9 Heart failure, unspecified; Z95.1 Presence of aortocoronary bypass graft; Z79.01 Long term (current) use of anticoagulants; Z90.49 Acquired absence of other specified parts of digestive tract
CPT/HCPCS: 99282

== ENCOUNTER → 2024-03-02 09:41 | Outpatient (REF) | payer MEDICARE, SELFPAY | LOC: RAD 09:41 | PROVIDERS: ATTENDING PHYSICIAN Nurse Practitioner; FAMILY PHYSICIAN Student in an Organized Health Care Education/Training Program | DX: I50.32 Chronic diastolic (congestive) heart failure (principal) | CPT/HCPCS: 78803; A9538 ==

== ENCOUNTER 2024-03-31 06:15 | Day surgery (SDC) | payer MEDICARE, SELFPAY ==
[2024-03-31 09:26] VITALS: BMI 26.1
[2024-03-31 09:27] VITALS: BP 98/59
[2024-03-31 11:06] VITALS: BP 84/54
[2024-03-31 11:15] VITALS: BP 85/59
[2024-03-31 11:30] VITALS: BP 92/73
== END 2024-03-31 12:02 | disposition home or self-care (01) ==
LOC: GI 06:15
PROVIDERS: ATTENDING PHYSICIAN Internal Medicine
DX: K22.89 Other specified disease of esophagus (principal); K31.89 Other diseases of stomach and duodenum; Z13.810 Encounter for screening for upper gastrointestinal disorder
CPT/HCPCS: 43239; 88305; 88342

== ENCOUNTER → 2024-04-12 10:28 | Outpatient (REF) | payer MEDICARE, SELFPAY | LOC: HWRAD 10:28 | PROVIDERS: ATTENDING PHYSICIAN Internal Medicine; FAMILY PHYSICIAN Student in an Organized Health Care Education/Training Program; REFERRING PHYSICIAN Internal Medicine Cardiovascular Disease | DX: N28.1 Cyst of kidney, acquired (principal); J90 Pleural effusion, not elsewhere classified | CPT/HCPCS: 71046; 76775 ==

== ENCOUNTER → 2024-05-12 08:40 | Outpatient (REF) | payer MEDICARE, SELFPAY ==
[2024-05-12 09:01] VITALS: BP 98/61; BP_SYST 62
[2024-05-12 09:44] VITALS: BP 92/61
[2024-05-12 10:44] LABS: Body Fluid Mononuclear 89.6 %; Body Fluid Polymorphonuclear 10.4 %; Body Fluid WBC 280 /CUMM
[2024-05-12 10:48] LABS: Body Fluid Second Tech ASW
== END ==
LOC: RADI 08:40
PROVIDERS: ATTENDING PHYSICIAN Internal Medicine; FAMILY PHYSICIAN Student in an Organized Health Care Education/Training Program
DX: R18.8 Other ascites (principal)
CPT/HCPCS: 49083; 87015; 87070; 87205; 89051

== ENCOUNTER 2024-05-12 10:27 | Outpatient (RCR) | payer MEDICARE, SELFPAY ==
[2024-05-12 10:44] VITALS: BP 90/48
[2024-05-12 10:46] VITALS: BP 90/48
[2024-05-12] MEDS: FLEXBUMIN 50 IV (10:46)
[2024-05-12 10:48] VITALS: BP 90/48
[2024-05-12 11:41] VITALS: BP 90/49
== END 2024-06-05 23:59 | disposition home or self-care (01) ==
LOC: OID 10:27
PROVIDERS: ATTENDING PHYSICIAN Internal Medicine; FAMILY PHYSICIAN Student in an Organized Health Care Education/Training Program
DX: R18.8 Other ascites (principal)
CPT/HCPCS: 96365; P9047

== ENCOUNTER 2024-06-25 22:55 | Inpatient (IN) | payer MEDICARE, SELFPAY ==
[2024-06-25 16:53] VITALS: BP 103/69
[2024-06-25 17:17] LABS: % Basophils 0.3 % (0-2); % Eosinophils 1.7 % (0-6); % Immature Granulocytes 0.6 % (0-0.5); % Lymphocytes 6.7 % (20.5-51.1); % Monocytes 11.6 % (1.7-9.3); % Neutrophils 79.1 % (42.2-75.2); Absolute Eosinophils 0.1 10^3/uL (0-0.7); Absolute Lymphocytes 0.4 10^3/uL (1.2-3.4); Absolute Monocytes 0.8 10^3/uL (0.1-0.6); Absolute Neutrophils 5.1 10^3/uL (1.4-6.5); Hemoglobin 9.5 g/dL (13.0-18.0); Mean Corp Hgb Conc. 33.9 g/dL (33.0-37.0); Mean Corpuscular Hgb 29.4 pg (27.0-31.0); Mean Corpuscular Volume 86.7 fL (80.0-94.0); Mean Platelet Volume 9.7 fL (7.4-10.4); Nucleated Red Blood Cells % 0 % (-); Platelet Count 106 10^3/uL (130-400); Red Blood Cell Count 3.23 10^6/uL (4.70-6.10); White Blood Cell Count 6.5 10^3/uL (4.8-10.8)
[2024-06-25 17:32] LABS: ALT (SGPT) 21 U/L (0-50); AST (SGOT) 45 U/L (17-59); Albumin 4.2 g/dl (3.5-5.0); Alkaline Phosphatase 85 U/L (38-126); Calcium 8.8 mg/dl (8.4-10.2); Carbon Dioxide 23 mmol/L (22-30); Chloride 83 mmol/L (98-107); Glucose 109 mg/dl (70-99); Potassium 3.5 mmol/L (3.5-5.1); Sodium 124 mmol/L (135-145); Total Bilirubin 1.1 mg/dl (0.2-1.3); eGFR 36.56
[2024-06-25 17:47] LABS: Blood Urea Nitrogen 145 mg/dl (9-20)
[2024-06-25 18:18] VITALS: BMI 27.0
[2024-06-25 19:00] VITALS: BP 91/66
[2024-06-25 20:00] VITALS: BP 91/66
--- NOTE | 2024-06-25 20:06 | ED.GENMED ---
History of Present Illness
General
Chief Complaint: Skin Problem
Source: patient
Exam Limitations: none
Time Seen by Provider: 06/25/24 19:25
Nursing documentation reviewed up to this point in time: agreed with
History of Present Illness
History of Present Illness:
Patient presents to ED secondary to nonhealing left heel wound, which has progressed to increased left lower leg swelling with redness. Denies fever or chills. Denies nausea or vomiting. Patient reports itching sensation without pain. Patient
reports initial injury to his left heel when he accidentally hit it against a hard surface. Denies previous history of skin infection. However, patient does have significant medical history, including recent admission at [facility] secondary to congestive heart failure. Patient also has stage III kidney disease, being followed by gin feeder at the outside hospital. Patient states that he has been urinating without difficulties. Per daughter at bedside, patient
mental status has not changed. Patient reports normal appetite.
Past History
Past History
ED Past Medical History: CAD, CHF and HTN
ED Past Surgical History: Cardiac (CABG), Cholecystectomy and Other (Hernia gallbladder)
Social History
Tobacco: Non-smoker
Alcohol: Former
Drug: None
Personal:
Living: with family
Employment: Retired
Family History
Family History: Hypertension
Review of Systems
Review of Systems
Allergies reviewed?: Yes
All Other Systems: ROS reviewed and negative except as documented in HPI and ROS
Constitutional: Reports no symptoms; Denies fever
Respiratory: Reports no symptoms; Denies trouble breathing
Cardiac: Reports no symptoms
ABD/GI: Reports no symptoms; Denies vomiting or diarrhea
: Reports no symptoms; Denies difficulty voiding
Musculoskeletal: Reports no symptoms
Skin: Reports other (heel open wound)
Neurological: Reports no symptoms
Phy Exam
Physical Exam
Physical Exam:
Physical Exam
General: no apparent distress, not acutely ill. afebrile
Head: nc/at. eomi
Neck: supple. normal range of motion.
Heart: s1/s2 regular rate and rhythm, no murmur. equal radial pulses.
Lungs: no acute respiratory distress. clear bilaterally
Abdomen: normal bowel sounds. not tender.
Neuro: alert and oriented x 3. no focal neurological deficits
Skin: left heel - skin tear/ulcer noted with serosanguineous drainage. Erythema extending up to knee noted with swelling
Psychiatric: well kept. interactive and cooperative
Extremities: LE b/l, nonpitting edema. no calf tenderness.
Sepsis
Sepsis Screening
Sepsis Assessment: Sepsis Ruled Out
Sepsis Screen
Sepsis Screen: Sepsis Ruled Out
Date: 06/26/24
Time: 03:05
Course
Orders/Labs/Results
Orders:
Orders
06/25/24 17:01
CMP [Comprehensive Metabolic Panel] Urgent
Complete Blood Count/With Diff Urgent
Magnesium Urgent
Comment: ADD ON
NT-proBNP Urgent
Comment: ADD ON
Serum Osmolality Urgent
Comment: ADD ON
06/25/24 19:56
Add On- LAB Urgent
Tests Added?: magnesium, ProBNP
Bladder Scan- Treatment ONCE
06/25/24 19:59
Piperacillin/Tazo 3.375 Gram [Zosyn] 3.375 gram in 50 ml IV NOW
06/25/24 20:13
Add On- LAB Urgent
Tests Added?: urine sodium, urine osm, serum osm
06/25/24 20:16
Vancomycin [Vancocin] 2,000 mg 0.9% Sodium Chloride 500 ml [Nss] 500 ml IV NOW
06/25/24 20:23
Lactic Acid Q4H
Comment: CANCEL 2nd LACTIC ACID IF 1st LACTIC ACID IS LESS THAN 2
Urinalysis Reflex To Culture Urgent
Date Specimen was Collected: 06/25/24
Time Specimen was Collected: 20:14
Urine Microscopic Reflex Cult Urgent
Blood Culture Q30M
BERT Source: Blood/Venous
Specimen Description:
06/25/24 20:38
Osmolality, Random Urine Urgent
Date Specimen was Collected: 06/25/24
Time Specimen was Collected: 20:14
Comment: ADD ON
Urine Sodium Urgent
Date Specimen was Collected: 06/25/24
Time Specimen was Collected: 20:14
Comment: ADD ON
Blood Culture Q30M
BERT Source: Blood/Venous
Specimen Description:
06/25/24 21:17
Ocampo Placement- Treatment ONCE
Reason for insertion: Acute Retention
06/25/24 22:00
Flush (0.9% Sodium Chloride) [Flush (Nss)] See Dose Instructions IV PER PROTOCOL
06/25/24 22:19
Consult Infectious Disease [INFECTIOUS DISEASE CONSULT] Routine
Consulting Provider: Mindy Ferro
Was physician already notified: No
Reason for consult: bilat lowr leg rash unclear
Consult Nephrology [NEPHROLOGY CONSULT] Routine
Consulting Provider: Gustavo Moreno
Was physician already notified: Yes
Reason for consult: Hyponatremia ckd 3b
Consult Notification Routine
Specialty to Notify: Infectious Disease
Consult Urology [UROLOGY CONSULT] Routine
Consulting Provider: Shan Schaffer
Was physician already notified: Yes
Comment: acute urinary retention ada ckd 3b
06/25/24 22:23
Admit/Transfer Patient As Directed
Co-Sign Provider:
Level of Care: Inpatient admission
Assign to:: Telemetry
Physician / Group: ricardo tee
Diagnosis: left heel ulcer,bilat leg rash, ada, acute urinary retention, hypoNA
Reason for Telemetry: Arrhythmia
Date to Stop Telemetry: 06/28/24
Time to Stop Telemetry: 11:00
Reason for Hospitalization: left heel ulcer,bilat leg rash, ada, acute urinary retention
Expected length of stay greater than two midnights?: Yes
ELOS- Estimated Length of Stay in days: 5
I certify the patient meets the requirements for IP care: Yes
Code Status As Directed
Resuscitation Status: Full Code
06/25/24 22:27
PRN Pain Medication Management As Directed
May give lesser potent ordered pain med per pt: Yes
preference::
Protocol:: Medication orders for pain may be administered in a
manner that supports deferring to patient preference
when the pt is:
- Requesting an ordered lesser potent pain medication.
Least to most potent pain medications are defined
as: acetaminophen < NSAID < tramadol < opioids
(morphine, oxycodone, hydromorphone).
- Requesting a lesser dose of the same medication IF
ORDERED.
- Requesting a less intrusive route of administration
if both routes are prescribed by the provider (PO <
IV).
06/26/24 00:23
VANCOMYCIN Pharmacy to Dose [VANCOCIN Pharmacy to Dose] 1 each Pharmacy To Prepare [Call Pharmacy To Prepare] 0 ml IV PER PROTOCOL
06/26/24 00:23
WOUND/OSTOMY CONSULT Routine
Reason for Consult: traumatic laft heel wound, bilat leg edema
Activity As Directed
Activity Level: With Assistance
Intake/ Output As Directed
Frequency: Per unit guidelines
Vital Signs As Directed
Frequency: Per unit guidelines
Weight As Directed
Frequency: Daily
Ot Eval And Treat Routine
Pt Eval And Treat Routine
Activity Level: With Assistance
DX Deep Vein Thrombosis Video Routine
06/26/24 01:07
Lactic Acid Q4H
Comment: CANCEL 2nd LACTIC ACID IF 1st LACTIC ACID IS LESS THAN 2
06/26/24 06:00
CRP [C-Reactive Protein] IN AM
Complete Blood Count/With Diff IN AM
Comprehensive Metabolic Panel IN AM
ESR [Erythrocyte Sed Rate] IN AM
Midodrine [ProAmatine] 5 mg PO TID@0600,1200,1700
06/26/24 08:00
Aspirin Low Dose EC [Aspir Low (Enteric Coated)] 81 mg PO DAILY
Cholecalciferol (Vitamin D3) [VITAMIN D3 (cholecalciferol)] 25 mcg PO DAILY
Dapagliflozin [Farxiga] 10 mg PO DAILY
Gabapentin [Neurontin] 100 mg PO TID
Heparin 5,000 units SC Q12
Potassium Chloride [KCl] 40 meq PO DAILY
Torsemide [Demadex] 100 mg PO BID
tafamidis [Vyndamax] See Dose Instructions PO DAILY
06/26/24 Dinner
Cholesterol Lowering
At Your Request: Full Participation
Fluid Restriction: 1000 mL/day (33 oz)
Cholesterol Lowering: Sodium, 2 Gram
06/27/24 06:00
Complete Blood Count/With Diff IN AM
Comprehensive Metabolic Panel IN AM
06/28/24 06:00
Complete Blood Count/With Diff IN AM
Comprehensive Metabolic Panel IN AM
06/28/24 11:00
DC Protocol for Telemetry ONCE
06/29/24 06:00
Complete Blood Count/With Diff IN AM
Comprehensive Metabolic Panel IN AM
Abnormal Lab Results
06/25/24 06/25/24
17:01 20:23
RBC 3.23 L 10^6/uL
(4.70-6.10)
Hgb 9.5 L g/dL
(13.0-18.0)
Hct 28.0 L %
(39.0-52.0)
RDW 16.0 H %
(11.5-14.5)
Plt Count 106 L 10^3/uL
(130-400)
Absolute Lymphs (auto) 0.4 L 10^3/uL
(1.2-3.4)
Absolute Monos (auto) 0.8 H 10^3/uL
(0.1-0.6)
Immature Gran % 0.6 H %
(0-0.5)
Neutrophils % 79.1 H %
(42.2-75.2)
Lymphocytes % 6.7 L %
(20.5-51.1)
Monocytes % 11.6 H %
(1.7-9.3)
Sodium 124 L mmol/L
(135-145)
Chloride 83 L mmol/L
(98-107)
BUN 145 H* mg/dl
(9-20)
Creatinine 1.9 H mg/dL
(0.7-1.3)
Glucose 109 H mg/dl
(70-99)
Serum Osmolality 305 H mOsm/kg
(275-300)
Magnesium 2.7 H mg/dl
(1.6-2.3)
Ur Occult Blood Reflex 1+ A
(Negative)
Urine RBC 3-6 A /HPF
(0-2)
Urine Glucose 1+ A
(Negative)
06/25/24 17:01
06/25/24 17:01
Vital Signs
Initial and Last Documented VS:
Initial Vital Signs
Pulse Resp BP Pulse Ox
93 16 103/69 94
06/25/24 16:53 06/25/24 16:53 06/25/24 16:53 06/25/24 16:53
Last Documented Vital Signs
Temp Pulse Resp BP Pulse Ox
97.9 F 93 16 99/63 100
06/26/24 00:13 06/26/24 00:13 06/26/24 00:13 06/26/24 00:13 06/26/24 00:13
MDM/Problems Addressed
MDM/Problems Addressed:
History and exam concerning for nonhealing heel ulcer, with development of cellulitis. In light of patient's chronic kidney disease and worsening renal function, patient will be admitted for IV antibiotics. Patient is high risk for potentially
developing bacteremia. As such, blood culture drawn. Broad-spectrum antibiotics ordered.
Bladder scan: > 600ml urine. Ocampo catheter placed.
*Critical Care Note
Total Time (30-74mins, 75-104mins- exclusive of procedures): Not Applicable
ED Attending Note
-
Portions of this chart may have been created with voice recognition software.� Occasional wrong word or��sound alike� substitutions may have occurred due to the inherent limitations of voice recognition software.
Discharge Plan
Departure
Patient Disposition: Admit
Date of Disposition: 06/25/24
Time of Disposition: 20:12
Presentation/result/management discussed w/ accepting MD/DO: Hospitalist
Discharge Problem:
Cellulitis, Hyponatremia, Acute urinary retention
Interventions
Interventions:
*Risk Screen - Suicide Last Done: 06/25/24 16:57
*General Assessment Last Done: 06/25/24 18:18
*Neglect/Abuse Screening Last Done: 06/25/24 16:57
ED- Fall Risk Assessment Last Done: 06/25/24 18:28
*ED COVID-19 Vaccine History Last Done: 06/25/24 18:18
*Nursing Disposition Last Done: 06/25/24 23:36
ED-Skin Assessment Last Done: 06/25/24 21:25
Discharge Date and Time
Discharge Date/Time: 06/25/24 23:40
[2024-06-25 20:08] LABS: Magnesium 2.7 mg/dl (1.6-2.3)
[2024-06-25 20:19] LABS: NT-proBNP 8290 pg/ml
[2024-06-25 20:29] LABS: Osmolality Serum 305 mOsm/kg (275-300)
[2024-06-25] MEDS: ZOSYN 50 IV (20:40)
[2024-06-25 20:51] LABS: Urine Albumin Negative (Neg - Trace); Urine Bilirubin Negative (Negative); Urine Character Clear (Clear); Urine Color Straw; Urine Glucose 1+ (Negative); Urine Ketone Negative (Negative); Urine Leukocyte Negative (Negative); Urine Nitrite Negative (Negative); Urine Occult Blood 1+ (Negative); Urine Urobilinogen Negative (Neg - 1+)
[2024-06-25 20:54] LABS: Osmolality Urine 306 mOsm/kg (300-900)
[2024-06-25 21:00] VITALS: BP 94/70
[2024-06-25 21:04] LABS: Lactic Acid 1.1 mmol/L (0.7-2.0)
[2024-06-25] MEDS: VANCOCIN 540 MG IV (21:05)
[2024-06-25] MEDS: FLUSH (NSS) 1 FLUSH IV (21:05)
[2024-06-25 21:07] LABS: Urine Sodium 32 mmol/L (30-90)
[2024-06-25 21:07] LABS: Urine White Cell 0-2 /HPF (0-5)
--- NOTE | 2024-06-25 21:36 | HPS.HSE ---
Family Physician
-
Family Physician: INTERVIEWE UNKNOWN - PT NOT
Chief Complaint
-
Bilateral lower leg rash, traumatic skin tear left heel
History of Present Illness
73-year-old male states he started approximately 1 week ago with bilateral macular erythematous pruritic rash to both legs extending into thighs then approximately 4 days ago he hit his left heel on a metal transition strip from the living room into
the kitchen he has a skin tear to the bottom of his left heel with a clean wound bed and current skin flap. He has +2 bilateral edematous legs that are weeping serous fluid. He is unable to wear his compressive stockings for the past week due to
+2 bilateral leg edema and left heel wound. He denies any fever, chills, chest pain, palpitations, shortness breath, cough, abdominal pain, nausea, vomiting, diarrhea. He had a recent admission 05/14 - 06/03/2024 at [facility] for
exacerbation of heart failure where his Lasix was increased from 80 mg to 100 mg twice daily. He states that he urinates frequently and feels relieved, but in the ER he had a Ocampo catheter inserted here which drained 1000 cc. The patient was
unaware he was retaining urine and had no urinary symptoms or pain. He has past medical history of CKD stage IIIb, ischemic cardiomyopathy EF 50-55% September 2023, chronic diastolic heart failure, chronic bilateral leg edema, orthostatic hypotension,
HTN�benign, CAD/AL/CABG x 3 vessel 2021, chronic anemia, chronic macrocytic anemia
HLD, PAF off anticoagulation due to unable to afford Eliquis, history of right retinal eye hemorrhage 2022, LBBB, bradycardia, restrictive lung disease, former smoker, pulmonary nodule, recurrent pleural effusions requiring thoracentesis,
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
Medical History
Past Medical History
Past Medical History: Reports Other
Additional Past Medical History:
CKD stage IIIb
ischemic cardiomyopathy EF 50-55% September 2023
chronic diastolic heart failure
chronic bilateral leg edema
orthostatic hypotension
HTN�benign
CAD/AL/CABG x 3 vessel 2021
chronic anemia, chronic macrocytic anemia
HLD
PAF off anticoagulation due to unable to afford Eliquis
history of right retinal eye hemorrhage 2022,
LBBB,
bradycardia
restrictive lung disease
former smoker
pulmonary nodule
recurrent pleural effusions requiring thoracentesis
obstructive sleep apnea status post uvulectomy
remote history hepatitis
Raynaud's disease
gout
insomnia
osteoarthritis
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
Past Surgical History: Reports Other
Additional Past Surgical History:
CAD/AL/CABG x 3 vessel 2021
Knee replacement
Hernia repair x 2
Cholecystectomy
Social History
Tobacco: Former Smoker (As teen)
Alcohol: Former (Quit 28 years ago)
Drug: None
Personal:
Living: With Family ( Robert)
Employment: Retired
Family History
Family History: Not pertinent
Allergies / Home Medications
Allergies reflects when Allergies were last updated in [facility].
Home Medications with original date entered in [facility]
Allergy/Medication List:
Allergies
Allergy/AdvReac Type Severity Reaction Status Date / Time
No Known Allergies Allergy Verified 05/12/24 10:48
Home Medications
cholecalciferol (vitamin D3) 25 mcg (1,000 unit) capsule (Vitamin D3) 25 mcg PO DAILY Supplement 03/18/22
midodrine 5 mg tablet 5 mg PO TID@0600,1200,1700 05/12/24
aspirin 81 mg tablet,delayed release 81 mg PO DAILY 06/25/24
dapagliflozin propanediol 10 mg tablet (Farxiga) 10 mg PO DAILY 06/25/24
gabapentin 100 mg capsule 100 mg PO TID 06/25/24
metolazone 2.5 mg tablet 2.5 mg PO DAILYPRN PRN excess swelling/weight gain 06/25/24
potassium chloride 20 mEq tablet,extended release(part/cryst) 40 meq PO DAILY 06/25/24
tafamidis 61 mg capsule (Vyndamax) 61 mg PO DAILY 06/25/24
torsemide 20 mg tablet 100 mg PO BID 06/25/24
Review of Systems
-
History Source: Patient
A 12 point ROS was completed and negative except as noted: Yes
Constitutional: Denies Fever, Weight Gain, Weight Loss, Fatigue or Chills
EENT: Denies Sore Throat or Runny Nose
Respiratory: Denies Cough or Trouble Breathing
Cardiac: Denies Chest Pain, Diaphoresis, Palpitations or Syncope
Abdomen/GI: Denies Abdominal Pain, Nausea, Vomiting, Diarrhea, Constipated, Bloody Stools or Black Stools
: Denies Dysuria, Frequency, Flank Pain, Incontinence, Difficulty Voiding or Urgency
Musculoskeletal: Reports Edema (Bilateral +2 lower leg edema weeping serous fluid, surrounding macular erythematous pruritic rash from upper thighs to lower ankles, left heel skin tear with skin flap surrounding wound bed intact with no drainage);
Denies Joint Pain
Skin: Reports Itching (Lower legs) and Rash (Thighs to lower legs)
Neurological: Denies Dizzy or Headache
Endocrine: Reports No Symptoms
Hematologic/Lymphatic: Reports No Symptoms
Psych: Reports Calm
Physical Exam
Vital Signs
Vital Signs
Pulse Resp BP Pulse Ox
96 16 94/70 100
06/25/24 21:15 06/25/24 21:15 06/25/24 21:00 06/25/24 20:45
Physical Exam
General: Comfortable and Conversant; No Pain, Fever or Chills
HEENT: NormoCephalic, Anicteric, Moist mucous membranes, PERRLA, [place] Conjunctivae and No Ptosis
Respiratory: Clear; No Wheezes, Rales or Rhonchi
Cardiac: S1/S2, Regular Rhythm and Peripheral Edema (Bilateral +2 lower leg edema weeping serous fluid, surrounding macular erythematous pruritic rash from upper thighs to lower ankles, left heel skin tear with skin flap surrounding wound bed intact
with no drainage); No Murmur, Rub, Gallop or JVD
Breast: Deferred by me
GI: Soft, Non Tender, Non Distended, Normal Bowel Sounds and No Hepatosplenomegaly
Rectal: Deferred by Provider
Genito-urinary: Ocampo (Ocampo inserted in ER drained 1000 cc clear urine)
Musculoskeletal: No Clubbing, No Cyanosis, Edema, Left Lower Extremity (Bilateral +2 lower leg edema weeping serous fluid, surrounding macular erythematous pruritic rash from upper thighs to lower ankles, left heel skin tear with skin flap
surrounding wound bed intact with no drainage) and Edema, Right Lower Extremity (Bilateral +2 lower leg edema weeping serous fluid, surrounding macular erythematous pruritic rash from upper thighs to lower ankles, left heel skin tear with skin flap
surrounding wound bed intact with no drainage); No Edema, Left Upper Extremity or Edema, Right Upper Extremity
Skin: Warm, Dry and Rash (Bilateral lower legs); No Jaundice
Neuro: AO x 3, No Motor Deficits, Nonfocal/grossly intact, Cranial Nerves Intact and No Sensory Deficits; No Slurred Speech, Facial Droop, Tremors or Sedated
Psych: Calm
Laboratory Results
-
06/25/24 17:01
06/25/24 17:01
Laboratory Results
Lactic Acid 1.1 mmol/L (0.7-2.0) 06/25/24 20:23
Total Bilirubin 1.1 mg/dl (0.2-1.3) 06/25/24 17:01
AST 45 U/L (17-59) 06/25/24 17:01
ALT 21 U/L (0-50) 06/25/24 17:01
Alkaline Phosphatase 85 U/L (38-126) 06/25/24 17:01
Impression/Plan
-
Impression/plan:
Admit to telemetry
#Traumatic left heel wound 2/2 hitting on metal transition strip 4 days ago
#Complicated healing due to +2 bilateral lower extremity edema
-Consult wound care
-Consult PT/OT/case management
#Bilateral lower legs to upper thighs MACULAR ERYHTEMATOUS PRUITIC RASH x 1 week�unclear etiology
Chronic +2 bilateral lower lower leg edema weeping serous fluid
No fever, chills
-Check blood culture x 2
-Check lactic acid,was given IV Zosyn single dose in ER
-IV vancomycin
-Consult infectious disease
-Check ESR, CRP
#Acute URINARY RETENTION with BARBARA
#BARBARA on CKD 3B
Creat 1.9/bun 145 prior creatinine 1.4 on 02/06/2024
-Patient follows with nephrology for CKD 3B
-Ocampo catheter placed in ER-drained 1 L fluid
-Urinalysis negative
-Consult urology�urinary retention
#Acute hyponatremia
NA 124
-Check urine osmo, urine NA, serum osmol, TSH with free T4 reflex
-Consult nephrology
-Fluid restrict 33 ounce
#Chronic diastolic CHF
#History of ischemic cardiomyopathy
BNP 8290, follow weights, intake and output
-Continue Tafamidis 61 mg daily
-Continue Farxiga 10 mg daily
-Continue midodrine 5 mg 3 times daily
-Follows with [facility]
-Patient would benefit from Charlie wraps for compressive dressings due to current left heel wound and +2 edema
-Continue Torsemide 100 mg twice daily(this was increased from 80 mg twice daily to 100 mg twice daily during May 2020 for admission at [facility])
2D echo 10/01/2023: EF 50-55% normal LVS LVSF, no wall abnormalities,
stage III diastolic dysfunction, normal right ventricle with reduced systolic function
estimated PASP 37 mmHg, mild to moderate MR
Hx right sided heart cath 12/12/2023:
1. Severely elevated filling pressures (PCWP = 30 mmHg at 95.3 kg).
2. Severe, postcapillary pulmonary hypertension (68/29/39 mmHg,
3. Severely elevated V wave on wedge pressure, concerning for mitral valve regurgitation versus noncompliant left atrium.
4. Severely depressed systolic function (cardiac index = 1.79 L/min/m�
#Pulm HTN on Cath 12/12/23
Severe, postcapillary pulmonary hypertension (68/29/39 mmHg
#Chronic neuropathy bilateral legs
-Continue gabapentin 100 mg 3 times daily
#Orthostatic hypotension/HTN�benign
BP 103/69
Continue midodrine 5 mg 3 times daily
#CAD/AL/CABG x 3 vessel 2021
-Continue aspirin 81 mg daily, Farxiga 10 mg daily
#Acute on chronic anemia
#Hx macrocytic anemia 02/06/2024
Hgb 9.5 Hgb 11.9 on 02/06/2024
#HLD
#PAF
No anticoagulation due to inability to afford Eliquis $233 per month he states has been off greater than 6 months
#History of right retinal eye hemorrhage 2022
-Was told he was able to resume anticoagulation but is unable to afford it
#Hx LBBB
#Hx bradycardia
#History restrictive lung disease
#Former smoker
#Hx pulmonary nodule
#History of recurrent pleural effusion requiring thoracentesis
#Obstructive sleep apnea status post uvulectomy
#Overweight�current BMI 27
Patient had history of obesity with BMI December has lost weight current BMI is 27
#Chronic ambulatory dysfunction
-Uses cane or walker for long distance
Other PMH:
Hx of hepatitis remote per patient
Raynaud's disease
Gout
Insomnia
Osteoarthritis
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
DVT prophylaxis
Subcu heparin
Full code per patient
[2024-06-25 22:00] VITALS: BP 112/96
--- NOTE | 2024-06-25 22:19 | W.PN.UPDATE ---
Update Note
Progress Note Update
Patient seen in conjunction with JAMAL. I concur with the findings on history and physical as well as the assessment and plan.
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
metolazone presenting to the emergency department with 1 week history of bilateral lower extremity erythema and pruritus. He saw his PMD who requested that he go to the emergency department due to pain however patient decided to come to dose on
hospital. He has been afebrile. He has a left flank excoriation following traumatic injury. No deep tissue changes.
In ED his blood pressure was 94/70 with a pulse of 76. Was not saturation was 100% on room air. He is BNP was elevated at 8000. White count was 6.5 hemoglobin 9.5 bili 106. He has sodium of 124, creatinine was 1.9 with a BUN of 145. While in
the emergency department he was found to have severe urinary retention. Urinary catheter was placed with removal of 1 L of clear urine. Patient denies history of BPH. He is unaware of any urinary symptoms including urgency, incontinence frequency
or hesitancy.
On my exam he has chronic bilateral lower extremity swelling and development of a pruritic erythematous maculopapular rash bilaterally in the lower extremity. There is some weeping. He does appear to have increased swelling compared to prior.
Bilateral cellulitis is generally unlikely however with chronic venous insufficiency and chronic swelling there is a possibility of this. He has been unable to use compression devices. I suspect urinary retention as limited is diuretic efficiency
and the patient and has had increased peripheral edema since. He denies any shortness of breath orthopnea or PND. He has baseline dyspnea on exertion.
Assessment and plan
Cellulitis -possible nonpurulent cellulitis with associated maculopapular rash versus an allergic process.
- admit to telemetry
- blood cultures
- Vancomycin IV for now
- check esr/crp panel
- ID consultation
- wound care consultation
BARBARA - Cr 1.9 with BUN of 149. Acute retention suspected. Denies h/o BPH. No significant anemia or GI bleed.
- s/p urinary catheter
- serial Cr/BUN
- consider U/S if no improvement in BUN
- urology consult
- nephrology consult
- will continue diuretics for now given severe heart failure.
Hyponatremia - U osm 300 on diuretics. Suspect hypervolemic hyponatremia and likely liberal fluid intake.
- free water restriction 1200
- continue diuretics
- orthostatics
- nephrology consult
CHF - chronic severe diastolic chf
- continue torsemide and tafamidis
- continue midodrine for hypotension
DVT PPX - heparin sq
Code status - full code
[2024-06-25 23:00] VITALS: BP 101/91
[2024-06-26] VITALS (8 sets, daily range): BP systolic 86–99; BP diastolic 48–68; PULSE 82; BMI 26.8; BMI 26.9
[2024-06-26 01:25] LABS: Lactic Acid 1.5 mmol/L (0.7-2.0)
[2024-06-26] MEDS: ProAmatine 5 MG PO ×3 (05:40→16:58)
[2024-06-26 07:11] LABS: ALT (SGPT) 20 U/L (0-50); AST (SGOT) 38 U/L (17-59); Albumin 3.6 g/dl (3.5-5.0); Alkaline Phosphatase 83 U/L (38-126); Calcium 8.6 mg/dl (8.4-10.2); Carbon Dioxide 26 mmol/L (22-30); Chloride 85 mmol/L (98-107); Estimated Creatinine Clearance 36 ml/min; Glucose 102 mg/dl (70-99); Potassium 2.9 mmol/L (3.5-5.1); Sodium 126 mmol/L (135-145); Total Bilirubin 1.1 mg/dl (0.2-1.3); Total Protein 6.2 g/dl (6.3-8.2); eGFR 39.01
[2024-06-26 07:23] LABS: Blood Urea Nitrogen 133 mg/dl (9-20)
[2024-06-26 07:25] LABS: % Basophils 0.4 % (0-2); % Eosinophils 1.8 % (0-6); % Immature Granulocytes 0.4 % (0-0.5); % Lymphocytes 5.7 % (20.5-51.1); % Monocytes 11.6 % (1.7-9.3); % Neutrophils 80.1 % (42.2-75.2); Absolute Eosinophils 0.1 10^3/uL (0-0.7); Absolute Lymphocytes 0.4 10^3/uL (1.2-3.4); Absolute Monocytes 0.8 10^3/uL (0.1-0.6); Absolute Neutrophils 5.5 10^3/uL (1.4-6.5); Hematocrit 26.7 % (39.0-52.0); Hemoglobin 8.7 g/dL (13.0-18.0); Mean Corp Hgb Conc. 32.6 g/dL (33.0-37.0); Mean Corpuscular Hgb 29.4 pg (27.0-31.0); Mean Corpuscular Volume 90.2 fL (80.0-94.0); Mean Platelet Volume 9.9 fL (7.4-10.4); Nucleated Red Blood Cells % 0 % (-); Platelet Count 96 10^3/uL (130-400); Red Blood Cell Count 2.96 10^6/uL (4.70-6.10); White Blood Cell Count 6.8 10^3/uL (4.8-10.8)
[2024-06-26 07:41] LABS: Erythrocyte Sed Rate 39 mm/hour (0-20)
--- NOTE | 2024-06-26 08:02 | PHA.VAN.IN ---
Assessment
- Assessment
Renal Function: Appears elevated from baseline
Maximum Temperature: 97.9
Plan
- Plan
Initial / Loading Dose: 2000mg 06/25 21:05 (24 mg/kg)
Maintenance Regimen: dose by level
Monitoring: Random 06/27 am
Pharmacokinetics Vancomycin I
- -
Patient Age: 73
Patient Sex: Male
Vancomycin Day #: 1
Indication: Skin And Soft Tissue (LE cellulitis and skin tear)
Requesting Provider: Iatlo Mei NP
Pertinent Antimicrobial Allergies:
no known allergies
Height / Weight:
Height 5 ft 9 in
Actual Weight 82.554 kg
Pertinent Past Medical History: CKDIII, HF with pedal edema
- Vital Signs / Lab Results
Temp Pulse Resp BP Pulse Ox
97.8 F 96 16 88/56 97
06/26/24 03:03 06/26/24 05:40 06/26/24 03:03 06/26/24 05:40 06/26/24 03:03
Lab Results - Hematology
06/25/24 06/26/24
17:01 06:27
WBC 6.5 6.8
Lab Results - Chemistry
06/25/24 06/26/24
17:01 06:27
BUN 145 H* 133 H*
Creatinine 1.9 H 1.8 H
Estimated Creat Clear 36
Albumin 4.2 3.6
06/25/24 06/26/24
20:23 01:07
Lactic Acid 1.1 1.5
Lab Results - Urine
06/25/24
20:23
Urine Nitrite (Reflex) Negative
Leukocyte Esterase Rfl Negative
Urine WBC (Reflex) 0-2
Ur Squamous Epith Cells 3-5
[2024-06-26] MEDS: FARXIGA 10 MG PO (09:12)
[2024-06-26] MEDS: NEURONTIN 100 MG PO ×3 (09:12→20:28)
[2024-06-26] MEDS: VITAMIN D3 (cholecalciferol) 25 MCG PO (09:13)
[2024-06-26] MEDS: KCL 40 MEQ PO (09:13)
[2024-06-26] MEDS: HEPARIN 5000 UNITS SC ×2 (09:13→20:28)
--- NOTE | 2024-06-26 09:24 | W.PN.HOSP.TC ---
Today's Communication/Plan
-
Continue antibiotics with Vanc, follow cultures, maintain Ocampo catheter, continue diuresis, follow BMP closely
Assessment / Plan
Assessment / Plan
Physical Exam
General: Not in acute distress
HEENT: Normocephalic
Respiratory: Clear to Auscultation Bilaterally
Cardiac: S1/S2, Regular Rhythm and Peripheral Edema (Bilateral +2 lower leg edema weeping serous fluid, surrounding macular erythematous pruritic rash from upper thighs to lower ankles, left heel skin tear with skin flap surrounding wound bed intact
with no drainage)
GI: Soft, Non Tender, Non Distended, Normal Bowel Sounds
Genito-urinary: Ocampo (Ocampo inserted in ER drained 1000 cc clear urine)
Musculoskeletal: No Cyanosis. Edema, Left Lower Extremity (Bilateral +2 lower leg edema weeping serous fluid, surrounding macular erythematous pruritic rash from upper thighs to lower ankles, left heel skin tear with skin flap surrounding wound bed
intact with no drainage) and Edema, Right Lower Extremity (Bilateral +2 lower leg edema weeping serous fluid, surrounding macular erythematous pruritic rash from upper thighs to lower ankles, left heel skin tear with skin flap surrounding wound bed
intact with no drainage)
Skin: Warm, Dry and Rash (Bilateral lower legs)
Neuro: AAO x 3, No Motor Deficits, Nonfocal/grossly intact, Cranial Nerves Intact and No Sensory Deficits
Psych: Calm
Assessment/Plan
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
presented to the emergency department with 1 week history of bilateral lower extremity erythema and pruritus. He saw his PMD who requested that he go to the emergency department due to pain, however patient decided to come to dose on hospital. He
has been afebrile. He has a left flank excoriation following traumatic injury. No deep tissue changes.
In ED his blood pressure was 94/70 with a pulse of 76. Was not saturation was 100% on room air. He is BNP was elevated at 8000. White count was 6.5 hemoglobin 9.5 bili 106. He had sodium of 124, creatinine was 1.9 with a BUN of 145. While in
the emergency department he was found to have severe urinary retention. Urinary catheter was placed with removal of 1 L of clear urine. Patient denies history of BPH. He is unaware of any urinary symptoms including urgency, incontinence frequency
or hesitancy.
On admission physical exam, he has chronic bilateral lower extremity swelling and development of a pruritic erythematous maculopapular rash bilaterally in the lower extremity. There is some weeping. He does appear to have increased swelling
compared to prior. Baseline dyspnea on exertion.
#Venous stasis Dermatitis - resolving
#Concern for bacteremia with gram positive cocci in clusters
-Follow blood cultures
-Start Vancomycin given initial results from blood cultures
-Infectious disease consulted on admission, appreciate evaluation and recommendations
-ESR elevated at 39 and CRP normal
#Traumatic left heel wound 2/2 hitting on metal transition strip 4 days ago
#Complicated healing due to +2 bilateral lower extremity edema
-Consult wound care
-Consult PT/OT/case management
#Acute Urinary Retention
#Acute kidney injury on chronic kidney disease with a baseline creatinine from February 2024 at 1.4
-Creat 1.9/bun 145 prior creatinine 1.4 on 02/06/2024
-Patient follows with nephrology for CKD 3B
-Continue Ocampo Catheter which was placed in the emergency department
-Okay to continue Torsemide for now
-Urinalysis negative
-Urology consulted on admission, appreciate evaluation and recommendations
-Nephrology consulted on admission, appreciate evaluation and recommendations
-Monitor BMP
-Consider ultrasound if no improvement in BUN
-Tamsulosin will be challenge right now with the patient's soft blood pressures
#Hyponatremia -- suspected Hypervolemic Hyponatremia
- PO FR 40 ounces
- Continue diuretics
- Orthostatics
- Nephrology consulted at the time of admission, appreciate evaluation
#Chronic diastolic CHF
#History of ischemic cardiomyopathy
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
-Continue Tafamidis 61 mg daily
-Continue Torsemide. And as needed Metolazone?
-Continue Farxiga 10 mg daily
-Continue midodrine 5 mg 3 times daily
-Follows with [facility]
-Patient would benefit from compression on the RLE and Tubigrip on the LLE
-Continue Torsemide 100 mg twice daily (this was increased from 80 mg twice daily to 100 mg twice daily during May 2020 for admission at [facility])
#Pulm HTN on Cath 12/12/23
Severe, postcapillary pulmonary hypertension (68/29/39 mmHg
#Chronic neuropathy bilateral legs
-Continue gabapentin 100 mg 3 times daily
#Orthostatic hypotension/HTN�benign
BP 103/69
Continue midodrine 5 mg 3 times daily
#CAD/AZ/CABG x 3 vessel 2021
-Continue aspirin 81 mg daily, Farxiga 10 mg daily
#Acute on chronic anemia
#Hx macrocytic anemia 02/06/2024
Hgb 9.5 Hgb 11.9 on 02/06/2024
#HLD
#PAF
No anticoagulation due to inability to afford Eliquis $233 per month he states has been off greater than 6 months
#History of right retinal eye hemorrhage 2022
-Was told he was able to resume anticoagulation but is unable to afford it
#Hx LBBB
#Hx bradycardia
#History restrictive lung disease
#Former smoker
#Hx pulmonary nodule
#History of recurrent pleural effusion requiring thoracentesis
#Obstructive sleep apnea status post uvulectomy
#Overweight�current BMI 27
Patient had history of obesity with BMI December has lost weight current BMI is 27
#Chronic ambulatory dysfunction
-Uses cane or walker for long distance
Other PMH:
History of hepatitis remote per patient
H/o resolved hep C (negative viral load 2021)
Raynaud's disease
Gout
Insomnia
Osteoarthritis
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
DVT Prophylaxis: Heparin subq
Code Status: Full code
Anticipated Discharge: 24 - 48 hours
Subjective/Interval History
-
Date of Service: June 26, 2024
Patient was seen and examined. He reported no chest pain or any other complaints.
Objective Data
-
Labs:
Laboratory Results
06/26/24
06:27
WBC 6.8
Hgb 8.7 L
Hct 26.7 L
Plt Count 96 L
Sodium 126 L
Potassium 2.9 L
Chloride 85 L
Carbon Dioxide 26
BUN 133 H*
Creatinine 1.8 H
Glucose 102 H
Calcium 8.6
Total Bilirubin 1.1
AST 38
ALT 20
Alkaline Phosphatase 83
Vital Signs:
Vital Signs
Temp Pulse Resp BP Pulse Ox
97.8 F 89 18 98/62 95
06/26/24 07:35 06/26/24 07:35 06/26/24 07:35 06/26/24 07:35 06/26/24 07:35
I&O
06/25/24 06/26/24 06/27/24
06:59 06:59 06:59
Intake Total 480 / 480
Output Total 1200 / 1200
Balance -720 / -720
[2024-06-26] MEDS: DEMADEX 100 MG PO ×2 (09:55→20:27)
[2024-06-26] MEDS: ASPIR LOW (ENTERIC COATED) 81 MG PO (09:55)
--- NOTE | 2024-06-26 10:48 | W.CON.NEPH ---
Consultation
-
Date/Time Consultation Requested: 06/25/2024 at 2200
Date/Time Consultation Performed: 06/26/2024 at 10 AM
Requesting Provider: gabino barnes
Performing Provider: Dr. Gustavo del real
Reason for Consultation: Acute on chronic kidney disease
Medical History
-
Chief Complaint: Acute on chronic kidney disease
History of Present Illness:
73-year-old male states he started approximately 1 week ago with bilateral macular erythematous pruritic rash to both legs extending into thighs then approximately 4 days ago he hit his left heel on a metal transition strip from the living room into
the kitchen he has a skin tear to the bottom of his left heel
He had a recent admission 05/14 - 06/03/2024 at [facility] for exacerbation of heart failure where his torsemide was increased from 80 mg to 100 mg twice daily.
in the ER he had a Ocampo catheter inserted here which drained 1000 cc. past medical history of CKD stage IIIb, ischemic cardiomyopathy EF 50-55% September 2023, chronic diastolic heart failure, chronic bilateral leg edema, orthostatic hypotension,
HTN�benign, CAD/TX/CABG x 3 vessel 2021, chronic anemia, chronic macrocytic anemia
Renal consult for acute on chronic kidney disease
Past Medical History
past medical history of CKD stage IIIb, ischemic cardiomyopathy EF 50-55% September 2023, chronic diastolic heart failure, chronic bilateral leg edema, orthostatic hypotension, HTN�benign, CAD/TX/CABG x 3 vessel 2021, chronic anemia, chronic macrocytic
anemia
Social History
Former alcohol and tobacco use
Family History
no history of renal disease
Allergies / Home Medications
Allergy/AdvReac Type Severity Reaction Status Date / Time
No Known Allergies Allergy Verified 05/12/24 10:48
�Medication �Instructions �Recorded �Confirmed �Type
cholecalciferol (vitamin D3) 25 25 mcg PO DAILY Supplement 03/18/22 06/25/24 History
mcg (1,000 unit) capsule (Vitamin
D3)
midodrine 5 mg tablet 5 mg PO TID@0600,1200,1700 05/12/24 06/25/24 History
aspirin 81 mg tablet,delayed 81 mg PO DAILY 06/25/24 06/25/24 History
release
dapagliflozin propanediol 10 mg 10 mg PO DAILY 06/25/24 06/25/24 History
tablet (Farxiga)
gabapentin 100 mg capsule 100 mg PO TID 06/25/24 06/25/24 History
metolazone 2.5 mg tablet 2.5 mg PO DAILYPRN PRN excess 06/25/24 06/25/24 History
swelling/weight gain
potassium chloride 20 mEq 40 meq PO DAILY 06/25/24 06/25/24 History
tablet,extended release(part/cryst)
tafamidis 61 mg capsule (Vyndamax) 61 mg PO DAILY 06/25/24 06/25/24 History
torsemide 20 mg tablet 100 mg PO BID 06/25/24 06/25/24 History
Review of Systems
-
Chronic lower extremity edema with diffuse rash of his lower extremities up to his thigh
All other systems: Negative unless noted
Physical Exam
Vital Signs
Vital Signs
Temp Pulse Resp BP Pulse Ox
97.8 F 89 18 98/62 95
06/26/24 07:35 06/26/24 07:35 06/26/24 07:35 06/26/24 07:35 06/26/24 07:35
Lab Results
WBC 6.8 10^3/uL (4.8-10.8) 06/26/24 06:27
RBC 2.96 10^6/uL (4.70-6.10) L 06/26/24 06:27
Hgb 8.7 g/dL (13.0-18.0) L 06/26/24 06:27
Hct 26.7 % (39.0-52.0) L 06/26/24 06:27
Plt Count 96 10^3/uL (130-400) L 06/26/24 06:27
Sodium 126 mmol/L (135-145) L 06/26/24 06:27
Potassium 2.9 mmol/L (3.5-5.1) L 06/26/24 06:27
Chloride 85 mmol/L (98-107) L 06/26/24 06:27
Carbon Dioxide 26 mmol/L (22-30) 06/26/24 06:27
BUN 133 mg/dl (9-20) H* 06/26/24 06:27
Creatinine 1.8 mg/dL (0.7-1.3) H 06/26/24 06:27
eGFR 39.01 06/26/24 06:27
Glucose 102 mg/dl (70-99) H 06/26/24 06:27
Calcium 8.6 mg/dl (8.4-10.2) 06/26/24 06:27
Dor-U-Rykdreuyohh Pept 8290 pg/ml 06/25/24 17:01
Albumin 3.6 g/dl (3.5-5.0) 06/26/24 06:27
Physical Exam
General no acute distress
HEENT no cephalic atraumatic extraocular muscle intact no scleral icterus no JVD neck supple
lungs clear to auscultation bilateral
heart regular S1-S2 positive
abdomen soft nontender positive bowel sounds
extremities +2 edema
Neurologically nonfocal alert and oriented x 3
Skin erythematous rash
Psych normal affect no bizarre behavior
Assessment/Plan
-
past medical history of CKD stage IIIb, ischemic cardiomyopathy EF 50-55% September 2023, chronic diastolic heart failure, chronic bilateral leg edema, orthostatic hypotension, HTN�benign, CAD/TX/CABG x 3 vessel 2021, chronic anemia, chronic macrocytic
anemia presents with lower extremity erythema and left foot lesion from a trauma recent admission for about 2 or 3 weeks for CHF [facility]
Acute on chronic kidney disease with a baseline creatinine from February 2024 at 1.4 spermicides 2.2 with presenting BUN of 145 and a creatinine of 1.9 with a serum sodium of 124 and potassium of 2.9
CHF superimposed with urinary retention
Lower extremity erythema
Anemia of chronic disease
Hyponatremia
Plan:
BARBARA with increased BUN to creatinine ratio greater than 20:1 on increased dose of torsemide with relative hypotension increasing the ADH effect causing hyponatremia and urinary retention
Maintain Ocampo catheter
Okay with torsemide for now but I will discuss continue the SGLT2 inhibitor
Fluid restrict to 40 ounces as he has been told to keep it around 60 ounces
Monitor strict urine output
May need to cut back on diuretics if azotemia persists
--- NOTE | 2024-06-26 11:15 | PTCARENOTE ---
Dr. Schulz made aware pt. with irregular rhythm at rest, Pt. asymptomatic. No new orders at this time.
--- NOTE | 2024-06-26 12:04 | CON.ID ---
Consultation
-
Date/Time Consultation Requested: 06/25/24 22:19
Date/Time Consultation Performed: 06/26/24 12:04
Requesting Provider: Sigifredo ONOFRE
Performing Provider: Dr Ferro
Reason for Consultation: bilat lowr leg rash unclear
Chief Complaint / Past History
Chief Complaint
Bilateral lower leg rash, traumatic skin tear left heel
History of Present Illness
Mr Zurita is a 73 year old male with chronic lymphedema, systolic and diastolic CHF (EF 50%), CKD III, prior Hep Cwho presented here on 06/25 for about a 1 week of a macular erythematous rash of the bilateral lower extremities with weaping
serous fluid. Then about 4 days ago he hit his heel on a metal transition script lacerating the L heel. He typically wears compression stockings but not currently able to tolerate them. No fevers or chills. Of note with an admission 05/14-06/03
at [facility] for CHF exacerbation with increase in his lasix.
Note previous + hep C testing which eventually cleared, however with possible repeat exposure with ex , retested after this in 2021 and viral load negative at that time.
Note he required a paracentesis 05/12/24 with 1.8 L removed, also paracentesis 02/06/24 with 5.6 L removed. He has also had multiple thoracentesis this year 11/18, 11/09, 10/19, 10/09, 09/25, 09/10 eventually with placement of a pleurex catheter.
Since arrival here she has been afebrile, bp persistent mild hypotension with MAPS mostly in the 70s, wbc 6.8, hgb 8.7, plt 96, L shift is noted, esr 39, na 124, bn 145, cr baseline 1.4 - on arrival 1.9 now 1.8, lactic acid 1.5, t bili 1.1, ast 45,
alt 21, alk phos 85, bnp 8000,
ER placed woodward with 1L urine drained. 'Im just here for my legs, and you've made those better, I want to leave.'
Past History
Additional Past Medical History:
CKD stage IIIb
ischemic cardiomyopathy EF 50-55% September 2023
chronic diastolic heart failure
chronic bilateral leg edema
orthostatic hypotension
HTN�benign
CAD/OH/CABG x 3 vessel 2021
chronic anemia, chronic macrocytic anemia
HLD
PAF off anticoagulation due to unable to afford Eliquis
history of right retinal eye hemorrhage 2022,
LBBB,
bradycardia
restrictive lung disease
former smoker
pulmonary nodule
recurrent pleural effusions requiring thoracentesis
obstructive sleep apnea status post uvulectomy
remote history hepatitis
Raynaud's disease
gout
insomnia
osteoarthritis
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
diverticulosis
resolved hep C
Additional Past Surgical History:
CAD/OH/CABG x 3 vessel 2021
Knee replacement
Hernia repair x 2
Cholecystectomy
Allergy History:
No Known Allergies Allergy (Verified 05/12/24 10:48)
Medications Reviewed: Yes
Social History
Tobacco: Former Smoker
Alcohol: Former (quit 28 years ago)
Drug: Former User (IVDA, no use in 26 years)
Family History
Family History: Not Pertinent
Review of Systems
Review of Systems
General: Negative Fever or Chills
All systems: All other systems were reviewed and were negative
Vital Signs
Temp Pulse Resp BP Pulse Ox
97.7 F 86 18 87/55 100
06/26/24 11:37 06/26/24 11:37 06/26/24 11:37 06/26/24 11:37 06/26/24 11:37
Physical Exam
Physical Exam
Constitutional: No Acute Distress
Cardiovascular: Regular Rate and S1/S2; Negative Murmur or Rub
Pulmonary: Clear and Symmetric; Negative Wheezes, Rales or Rhonchi
Gastrointestinal: Soft, Non Tender, Non Distended and Normal Bowel Sounds
Skin: Warm and Dry; Negative Rash or Jaundice
Wound: Other (L heel, clean, no surrounding erythema, warmth, tenderness or drainage; skin is well approximated)
Lab / Diagnostic Study Results
06/26/24 06:
06/26/24:
Abs Immat Gran (auto) 0.0 10^3/uL (0-0.05) 06/26/24:
Absolute Neuts (auto) 5.5 10^3/uL (1.4-6.5) 06/26/24:
Absolute Lymphs (auto) 0.4 10^3/uL (1.2-3.4) L 06/26/24:
Absolute Monos (auto) 0.8 10^3/uL (0.1-0.6) H 06/26/24:
Absolute Basos (auto) 0.0 10^3/uL (0-0.2) 06/26/24:
Immature Gran % 0.4 % (0-0.5) 06/26/24:
Neutrophils % 80.1 % (42.2-75.2) H 06/26/24:
Lymphocytes % 5.7 % (20.5-51.1) L 06/26/24:
Monocytes % 11.6 % (1.7-9.3) H 06/26/24:
Eosinophils % 1.8 % (0-6) 06/26/24:
Basophils % 0.4 % (0-2) 06/26/24:
ESR 39 mm/hour (0-20) H 06/26/24:
Lactic Acid 1.5 mmol/L (0.7-2.0) 06/26/24 01:07
C-Reactive Protein 10.00 mg/L (0.0-10.00) 12/21/24 06:27
Ur Squamous Epith Cells 3-5 /LPF (Few) 06/25/24 20:23
Microbiology Results
Micro:
06/25/24 20:23 Blood Culture - Pending
Blood/Venous
06/25/24 20:38 Blood Culture - Pending
Blood/Venous
Assessment / Plan
Venous stasis Dermatitis - resolving
combined systolic and diastolic CHF
H/o resolved hep C (negative viral load 2021)
Urinary retention
- blood cultures x2 no growth to date
- erythema has resolved with improving edema consistent with venous stasis
- L heel laceration clean, no erythema, healing
- no indication for antibiotics
- woodward management per urology/internal medicine
asking for discharge today, discussed with Dr Schulz who will make the final decision
Care Review
Plan reviewed with: Physician (Dr Schulz - patient requesting dc)
--- NOTE | 2024-06-26 12:08 | W.PN.URO.CBU ---
Today's Communication / Plan
-
Keep Ocampo
Would advise beginning tamsulosin when cleared medically
Assessment / Plan
-
BPH: untreated
Longstanding urine retention: confirmed 08/30
BARBARA
Diagnosis
-
Date of Service: June 26, 2024
-
Patient Diagnosis:
BPH
Urine retention: 1000 ml
BARBARA
---
Patient was found to be in urine retention with a post-void residual urine volume of 515 ml 09/01/23
Transrectal US revealed a 43 cc gland with median lobe enlargement
Medical and surgical options for management were discussed (Dr. Sales): patient declined treatment
Subjective
-
No catheter bother
No SP or CVAT
Objective
-
Vital Signs
Temp Pulse Resp BP Pulse Ox
97.7 F 86 18 87/55 100
06/26/24 11:37 06/26/24 11:37 06/26/24 11:37 06/26/24 11:37 06/26/24 11:37
Intake and Output
06/25/24 06/26/24 06/27/24
06:59 06:59 06:59
Intake Total 480 / 480
Output Total 1200 / 1200
Balance -720 / -720
Intake:
Oral fluids 480 / 480
Output:
Urine, Ocampo 1200 / 1200
Laboratory Results
06/26/24 06:27
06/26/24 06:27
Review of Systems
-
Respiratory: No Symptoms
Cardiac: No Symptoms
Abdomen/GI: No Symptoms
: No Symptoms
Physical Exam
-
General - no acute distress
Abdomen - soft, non-tender
Genitalia - Ocampo draining clear urine
Counseling
-
Patient will need outpatient follow up to advance his BPH/urine retention management
--- NOTE | 2024-06-27 01:51 | PTCARENOTE ---
Received pt with a HR 100-130. Tele strip appears to be a-v paced with several pacer spikes without a capture. Pt denies any chest pain or shortness of breath. VSS. JEMIMA Shaffer notified. Magnesium level added with Am lab collection. No other
new orders at this time and will continue to monitor.
[2024-06-27 03:55] VITALS: BP 98/65
[2024-06-27] MEDS: ProAmatine 5 MG PO ×3 (05:14→16:51)
[2024-06-27 06:00] VITALS: BMI 26.7
[2024-06-27 07:05] VITALS: BP 85/61
[2024-06-27] MEDS: KCL 40 MEQ PO ×2 (07:46→09:32)
[2024-06-27] MEDS: VITAMIN D3 (cholecalciferol) 25 MCG PO (07:46)
[2024-06-27] MEDS: NEURONTIN 100 MG PO ×3 (07:46→19:22)
[2024-06-27] MEDS: ASPIR LOW (ENTERIC COATED) 81 MG PO (07:46)
[2024-06-27] MEDS: DEMADEX 100 MG PO ×2 (07:46→19:22)
[2024-06-27] MEDS: HEPARIN 5000 UNITS SC ×2 (07:47→19:22)
[2024-06-27 07:58] LABS: % Basophils 0.4 % (0-2); % Eosinophils 1.5 % (0-6); % Immature Granulocytes 0.7 % (0-0.5); % Lymphocytes 7.9 % (20.5-51.1); % Neutrophils 77.5 % (42.2-75.2); Absolute Eosinophils 0.1 10^3/uL (0-0.7); Absolute Immature Granulocytes 0.1 10^3/uL (0-0.05); Absolute Lymphocytes 0.5 10^3/uL (1.2-3.4); Absolute Monocytes 0.8 10^3/uL (0.1-0.6); Absolute Neutrophils 5.2 10^3/uL (1.4-6.5); Hematocrit 27.1 % (39.0-52.0); Hemoglobin 8.7 g/dL (13.0-18.0); Mean Corp Hgb Conc. 32.1 g/dL (33.0-37.0); Mean Corpuscular Hgb 28.8 pg (27.0-31.0); Mean Corpuscular Volume 89.7 fL (80.0-94.0); Mean Platelet Volume 9.2 fL (7.4-10.4); Nucleated Red Blood Cells % 0 % (-); Platelet Count 97 10^3/uL (130-400); Red Blood Cell Count 3.02 10^6/uL (4.70-6.10); Red Cell Dist. Width 16.2 % (11.5-14.5); White Blood Cell Count 6.7 10^3/uL (4.8-10.8)
--- NOTE | 2024-06-27 08:19 | W.PN.HOSP.TC ---
Today's Communication/Plan
-
Continue Vancomycin
Concern for possible vegetation(s) -- echo
Continue Ocampo Catheter
Potassium replaced
Monitor CBC, BMP
Assessment / Plan
Assessment / Plan
Physical Exam
General: Not in acute distress
HEENT: Normocephalic
Respiratory: Clear to Auscultation Bilaterally
Cardiac: S1/S2, Regular Rhythm and Peripheral Edema (Bilateral +2 lower leg edema weeping serous fluid, surrounding macular erythematous pruritic rash from upper thighs to lower ankles, left heel skin tear with skin flap surrounding wound bed intact
with no drainage)
GI: Soft, Non Tender, Non Distended, Normal Bowel Sounds
Genito-urinary: Ocampo (Ocampo inserted in ER drained 1000 cc clear urine)
Musculoskeletal: No Cyanosis. Edema, Left Lower Extremity (Bilateral +2 lower leg edema weeping serous fluid, surrounding macular erythematous pruritic rash from upper thighs to lower ankles, left heel skin tear with skin flap surrounding wound bed
intact with no drainage) and Edema, Right Lower Extremity (Bilateral +2 lower leg edema weeping serous fluid, surrounding macular erythematous pruritic rash from upper thighs to lower ankles, left heel skin tear with skin flap surrounding wound bed
intact with no drainage)
Skin: Warm, Dry and Rash (Bilateral lower legs)
Neuro: AAO x 3, Nonfocal/grossly intact
Psych: Calm
Assessment/Plan
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
presented to the emergency department with 1 week history of bilateral lower extremity erythema and pruritus. He saw his PMD who requested that he go to the emergency department due to pain, however patient decided to come to dose on hospital. He
has been afebrile. He has a left flank excoriation following traumatic injury. No deep tissue changes.
In ED his blood pressure was 94/70 with a pulse of 76. Was not saturation was 100% on room air. He is BNP was elevated at 8000. White count was 6.5 hemoglobin 9.5 bili 106. He had sodium of 124, creatinine was 1.9 with a BUN of 145. While in
the emergency department he was found to have severe urinary retention. Urinary catheter was placed with removal of 1 L of clear urine. Patient denies history of BPH. He is unaware of any urinary symptoms including urgency, incontinence frequency
or hesitancy.
On admission physical exam, he has chronic bilateral lower extremity swelling and development of a pruritic erythematous maculopapular rash bilaterally in the lower extremity. There is some weeping. He does appear to have increased swelling
compared to prior. Baseline dyspnea on exertion.
#Venous stasis Dermatitis
#Coagulase Neg. Staph Bacteremia
-Follow blood cultures as well as repeat blood cultures
-Continue Vancomycin
-Infectious disease consulted on admission, appreciate evaluation and recommendations
-ESR elevated at 39 and CRP normal
-TTE and possibly YANI (which would check for lead vegetations) -- cardiology onboard, as below
-Might be contamination as per ID, but continue Vanco and echo
#Traumatic left heel wound 2/2 hitting on metal transition strip 4 days ago
#Complicated healing due to +2 bilateral lower extremity edema
-Consult wound care
-Consult PT/OT/case management
#Acute Urinary Retention
#Acute kidney injury on chronic kidney disease with a baseline creatinine from February 2024 at 1.4
-Creat 1.9/bun 145 prior creatinine 1.4 on 02/06/2024
-Patient follows with nephrology for CKD 3B
-Continue Ocampo Catheter -- but patient reported having performed self catheterization years ago and wants to resume it at the time of discharge, so he can have his Ocampo catheter removed at some point in the
near future
-Okay to continue Torsemide for now
-Urinalysis negative
-Urology consulted on admission, appreciate evaluation and recommendations
-Nephrology consulted on admission, appreciate evaluation and recommendations
-Monitor BMP
-Tamsulosin will be challenge right now with the patient's soft blood pressures
#Hyponatremia -- suspected Hypervolemic Hyponatremia
- PO FR 40 ounces
- Continue diuretics
- Orthostatics
- Nephrology consulted at the time of admission, appreciate evaluation
#Hypokalemia
-Replaced, continued to monitor BMP
-Magnesium elevated
#Heart failure with recovered ejection fraction
#History of ischemic cardiomyopathy
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
-Continue Tafamidis 61 mg daily (amyloid CM followed by Dr. Cullen at [place])
-Continue Torsemide. And as needed Metolazone?
-Continue Farxiga 10 mg daily
-Continue midodrine 5 mg 3 times daily
-Follows with [facility] cardiology
-Patient would benefit from compression on the RLE and Tubigrip on the LLE
-Continue Torsemide 100 mg twice daily (this was increased from 80 mg twice daily to 100 mg twice daily during May 2020 for admission at [facility])
-Farxiga being held due to BARBARA
-Additional GDMT has been limited by hypotension
#BiV ICD ([facility], 05/2024)
-Placed for sinus node dysfunction, chronotropic incompetence, and VT lasting up to 25 beats
-Given concern with intermittent tachycardia, need for device interrogation, and bacteremia with BiV ICD, cardiology was consulted for this reason
-Device interrogation pending
#Pulmonary Hypertension
#Chronic neuropathy bilateral lower extremities
-Continue gabapentin 100 mg 3 times daily
#Orthostatic hypotension
#History of Hypertension
-Continue Midodrine
#CAD/RI/CABG x 3 vessel 2021
-Continue aspirin 81 mg daily
#Acute on chronic anemia
#Hx macrocytic anemia 02/06/2024
-Continue to monitor CBC
#Hyperlipidemia
#Atrial flutter/fibrillation status post PVI
-No anticoagulation due to inability to afford Eliquis $233 per month he states has been off greater than 6 months?
-Given patient's Amyloid, patient needs anticoagulation -- cardiology will look into this
#History of right retinal eye hemorrhage 2022
-Was told he was able to resume anticoagulation but is unable to afford it
#Hx LBBB
#Hx bradycardia
#History restrictive lung disease
#Former smoker
#Hx pulmonary nodule
#History of recurrent pleural effusion requiring thoracentesis
#Obstructive sleep apnea status post uvulectomy
#Overweight
Patient had history of obesity with BMI December has lost weight current BMI is 27
#Chronic ambulatory dysfunction
-Uses cane or walker for long distance
Other PMH:
History of hepatitis remote per patient
H/o resolved hep C (negative viral load 2021)
Raynaud's disease
Gout
Insomnia
Osteoarthritis
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
DVT Prophylaxis: Heparin subq
Code Status: Full code
Anticipated Discharge: > 48 hours
Subjective/Interval History
-
Date of Service: June 27, 2024
Patient was seen and examined. He denied any fever or any other symptoms.
Objective Data
-
Labs:
Laboratory Results
06/27/24
07:46
WBC 6.7
Hgb 8.7 L
Hct 27.1 L
Plt Count 97 L
Sodium Pending
Potassium Pending
Chloride Pending
Carbon Dioxide Pending
BUN Pending
Creatinine Pending
Glucose Pending
Calcium Pending
Total Bilirubin Pending
AST Pending
ALT Pending
Alkaline Phosphatase Pending
Vital Signs:
Vital Signs
Temp Pulse Resp BP Pulse Ox
97.2 F 81 20 98/65 98
06/27/24 03:55 06/27/24 05:14 06/27/24 03:55 06/27/24 05:14 06/27/24 03:55
I&O
06/26/24 06/27/24 06/28/24
06:59 06:59 06:59
Intake Total 480 / 480 960 / 960
Output Total 1200 / 1200 3220 / 3220
Balance -720 / -720 -2260 / -2260
[2024-06-27 08:22] LABS: ALT (SGPT) 22 U/L (0-50); AST (SGOT) 39 U/L (17-59); Albumin 3.7 g/dl (3.5-5.0); Alkaline Phosphatase 89 U/L (38-126); Calcium 8.5 mg/dl (8.4-10.2); Carbon Dioxide 25 mmol/L (22-30); Chloride 87 mmol/L (98-107); Estimated Creatinine Clearance 38 ml/min; Glucose 143 mg/dl (70-99); Magnesium 2.6 mg/dl (1.6-2.3); Sodium 126 mmol/L (135-145); Total Protein 6.4 g/dl (6.3-8.2); Vancomycin Random 13.4 ug/ml; eGFR 41.78
[2024-06-27 08:34] LABS: Blood Urea Nitrogen 122 mg/dl (9-20)
--- NOTE | 2024-06-27 09:42 | PHA.VAN.FU ---
Addendum entered and electronically signed by Lisa Burgos [facility] 06/27/24 09:45:
New consult for Bacteremia Indication and Dr Schulz as prescriber
Original Note:
Vancomycin Assessment / Plan
- Assessment
Renal Function: SCR Decreasing
WBC's are: WNL
In the past 24 hrs, patient has been: Afebrile
- Assessment - Therapeutic Drug Monitoring
Random Level: 13.4, ~35 h post loading dose
- Dosing Plan
Continue: to dose by level
Dosing by Level: Re-dose today (750 mg)
- Monitoring Plan
Random Level: 06/28 am labs
- Follow Up
Pharmacy will continue to follow.
Vancomycin Follow UP
- -
Patient Age: 73
Patient Sex: Male
Vancomycin Day #: 2
Indication: Skin And Soft Tissue (LE cellulitis and skin tear)
Requesting Provider: Italo Mei NP
Pertinent Antimicrobial Allergies:
no known allergies
Height / Weight:
Height 5 ft 9 in
Actual Weight 81.817 kg
Pertinent Past Medical History: CKDIII, HF with pedal edema
- Vital Signs / Lab Results
Temp Pulse Resp BP Pulse Ox
97.2 F 81 20 98/65 98
06/27/24 03:55 06/27/24 05:14 06/27/24 03:55 06/27/24 05:14 06/27/24 03:55
Lab Results - Hematology
06/25/24 06/26/24 06/27/24
17:01 06:27 07:46
WBC 6.5 6.8 6.7
Lab Results - Chemistry
06/25/24 06/26/24 06/26/24
17:01 06:27 15:15
BUN 145 H* 133 H* Cancelled
Creatinine 1.9 H 1.8 H Cancelled
Estimated Creat Clear 36 Cancelled
Albumin 4.2 3.6
06/27/24
07:46
BUN 122 H*
Creatinine 1.7 H
Estimated Creat Clear 38
Albumin 3.7
06/25/24 06/26/24
20: 01:07
Lactic Acid 1.1 1.5
Microbiology Results
06/25/24 20:38 Blood Culture - Preliminary
Blood/Venous Positive culture in progress
Gram Stain - Preliminary
06/25/24 20:23 Blood Culture - Preliminary
Blood/Venous Positive culture in progress
Gram Stain - Preliminary
Therapeutic Drug Monitoring
Random Vancomycin 13.4 ug/ml 06/27/24 07:46
[2024-06-27 11:05] VITALS: BP 95/60
[2024-06-27] MEDS: VANCOCIN 150 IV (11:12)
--- NOTE | 2024-06-27 11:43 | W.PN.URO.CBU ---
Today's Communication / Plan
-
Patient reports having performed self catheterization years ago and is interested in resuming at time of discharge so he can have his catheter removed
Assessment / Plan
-
BPH: untreated
Longstanding urine retention: confirmed 08/30
BARBARA
Diagnosis
-
Date of Service: June 27, 2024
-
Patient Diagnosis:
BPH
Urine retention: 1000 ml
BARBARA
---
Patient was found to be in urine retention with a post-void residual urine volume of 515 ml 09/01/23
Transrectal US revealed a 43 cc gland with median lobe enlargement
Medical and surgical options for management were discussed (Dr. Sales): patient declined treatment
Subjective
-
Comfortable
Interested in resuming self catheterization
Objective
-
Vital Signs
Temp Pulse Resp BP Pulse Ox
97.8 F 80 16 85/61 100
06/27/24 07:05 06/27/24 07:05 06/27/24 07:05 06/27/24 07:05 06/27/24 08:10
Intake and Output
06/26/24 06/27/24 06/28/24
06:59 06:59 06:59
Intake Total 480 / 480 960 / 960
Output Total 1200 / 1200 3220 / 3220
Balance -720 / -720 -2260 / -2260
Intake:
Oral fluids 480 / 480 960 / 960
Output:
Urine, Ocampo 1200 / 1200 3220 / 3220
Laboratory Results
06/27/24 07:46
06/27/24 07:46
Review of Systems
-
Constitutional: Fatigue
Respiratory: No Symptoms
Cardiac: No Symptoms
Abdomen/GI: No Symptoms
: Difficulty Voiding
Physical Exam
-
General - no acute distress
Abdomen - soft, non-tender
Genitalia - normal with Ocampo draining clear urine
Counseling
-
Advise patient resume self catheterization prior to discharge home to demonstrate ability
--- NOTE | 2024-06-27 11:47 | CON.CAR ---
Consultation
Consultation Request
Date/Time Consultation Requested: 06/27/2024 at 8:23 AM
Date/Time Consultation Performed: 06/27/2024 at 11 AM
Requesting Provider: Javan Schulz MD
Performing Provider: Derek Matos MD
Reason for Consultation: tachycardia, bacteremia
Medical History
-
Chief Complaint: tachycardia, bacteremia
History of Present Illness:
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
post CABG in 2021 who presents with worsening bilateral lower extremity edema. Cardiology is consulted for intermittent tachycardia on telemetry as well as bacteremia with new BiV ICD.
The patient is known to our practice and follows with Dr. Adamson. He also follows with Dr. Kinsey at [place] for his amyloid cardiomyopathy. He was recently admitted to the [facility] from 05/14 - 06/03 for heart failure. He
required IV diuresis and was briefly on dobutamine however this was stopped due to episodes of ventricular tachycardia. He was started on midodrine for hypotension and was discharged on torsemide 80 mg twice daily. During his admission he was also
noted to have sinus node dysfunction, chronotropic incompetence, and VT lasting up to 25 beats, so [employer]) was placed. Per discharge summary from [facility], he was started on warfarin, however he reports that this was since stopped by
Dr. Moeller's office.
This admission he presented with bilateral lower extremity edema and rash which was thought to possibly be due to a cellulitis. Blood cultures from admission are growing GPC's for which she has been started on vancomycin. He also had an BARBARA with
creatinine 1.9 on admission from baseline of 1.4. Telemetry has been notable for intermittent tachycardia with last episode overnight from midnight to around 1 AM.
Past Medical History
Past Medical History: Arrhythmias (afib, VT, s/p BiV ICD), CAD (CABG 2021), CHF (recovered EF, amyloid cardiomyopathy), HTN and Renal Failure
Past Surgical History: Cholecystectomy and Other (Hernia repair)
Social History
Tobacco: Non-Smoker
Alcohol: Former
Drug: None
Personal:
Living: With Family
Employment: Retired
Family History
Family History: Reviewed & Not Pertinent (Denies early CAD and sudden cardiac )
Allergies / Home Medications
Allergy/AdvReac Type Severity Reaction Status Date / Time
No Known Allergies Allergy Verified 05/12/24 10:48
�Medication �Instructions �Recorded �Confirmed �Type
cholecalciferol (vitamin D3) 25 25 mcg PO DAILY Supplement 03/18/22 06/25/24 History
mcg (1,000 unit) capsule (Vitamin
D3)
midodrine 5 mg tablet 5 mg PO TID@0600,1200,1700 05/12/24 06/25/24 History
HYPOTENSION
aspirin 81 mg tablet,delayed 81 mg PO DAILY Blood Clot 06/25/24 06/25/24 History
release Prevention/Tx
dapagliflozin propanediol 10 mg 10 mg PO DAILY Heart Failure 06/25/24 06/25/24 History
tablet (Farxiga)
gabapentin 100 mg capsule 100 mg PO TID NEUROPATHY 06/25/24 06/25/24 History
metolazone 2.5 mg tablet 2.5 mg PO DAILYPRN PRN excess 06/25/24 06/25/24 History
swelling/weight gain
potassium chloride 20 mEq 40 meq PO DAILY Electrolyte 06/25/24 06/25/24 History
tablet,extended release(part/cryst) Repletion
tafamidis 61 mg capsule (Vyndamax) 61 mg PO DAILY Amyloid 06/25/24 06/25/24 History
cardiomyopathy
torsemide 20 mg tablet 100 mg PO BID Heart Failure 06/25/24 06/25/24 History
Review of Systems
-
All other systems: Negative unless noted
Physical Exam
Vital Signs
Temp Pulse Resp BP Pulse Ox
97.8 F 80 16 85/61 100
06/27/24 07:05 06/27/24 07:05 06/27/24 07:05 06/27/24 07:05 06/27/24 08:10
Lab Results
06/27/24 07:46
06/27/24 07:46
Ols-R-Gxhbwlffxwp Pept 8290 pg/ml 06/25/24 17:01
Physical Exam
General: Well Developed, Well Nourished and No Apparent Distress
Respiratory: Clear and Non Labored Respirations
Cardiac: S1/S2, Regular Rhythm and Peripheral Edema; Negative Murmur or Rub
Skin: Rash
Neuro: AO x 3
Impression / Plan
-
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
post CABG in 2021 who presents with worsening bilateral lower extremity edema. Cardiology is consulted for intermittent tachycardia on telemetry as well as bacteremia with new BiV ICD.
Solution Lead: Dr. Adamson
# Intermittent tachycardia
-Appears to be either atrial flutter or pace-maker mediated tachycardia
-Reach out to [facility] to interrogate device. They will get back to us tomorrow.
-No rate control for now given hypotension
# GPC bacteremia
-May be from lower extremity cellulitis
-This diagnosis is a threat to life
-Continue vancomycin per ID
-We will start with transthoracic echocardiogram tomorrow. May need YANI to rule out lead vegetations.
# Atrial flutter/fibrillation status post PVI
-He may be having recurrence based on intermittent regular tachycardia on telemetry
-Interrogate device as above
-Patient recently started on warfarin during May hospitalization, but it has reportedly since been stopped
-Needs anticoagulation regardless of [id number] given amyloid diagnosis. We will investigate why it was stopped (requested [facility] records).
# Heart failure with recovered ejection fraction
-TTE 05/17/2024 ([facility]): LVEF 49%, moderate LVH, decreased RV function, moderate MR, mild TR, PASP 42
-Dapagliflozin held for BARBARA
-Other GDMT has been limited by hypotension. Continue midodrine 5 mg 3 times daily.
-Continue torsemide 100 mg twice daily
# Amyloid cardiomyopathy
-Followed by Dr. Cullen at [place]
-Continue tafamidis
# BiV ICD ([facility], 05/2024)
-Placed for sinus node dysfunction, chronotropic incompetence, and VT lasting up to 25 beats
# CAD s/p CABG
- Continue ASA. No statin maybe due to overall poor prognosis
Data Reviewed
-
EKG: Tracing Personally Visualized and interpreted, Discussed with Physician and Discussed with Patient
Medical Tests (Nuc Med, Echo etc): Image Personally Visualized and interpreted and Discussed with Patient
Labs: Labs Reviewed by me, Discussed with Physician and Discussed with Patient
Old Records: Requested
--- NOTE | 2024-06-27 11:50 | W.PN.NEPH.PH ---
Today's Communication / Plan
-
Continue Ocampo catheter with strict I's and O's
Continue diuretics with holding SGLT2 inhibitor
Vancomycin renally dosed with trough levels
Assessment/Plan
-
past medical history of CKD stage IIIb, ischemic cardiomyopathy EF 50-55% September 2023, chronic diastolic heart failure, chronic bilateral leg edema, orthostatic hypotension, HTN�benign, CAD/IN/CABG x 3 vessel 2021, chronic anemia, chronic macrocytic
anemia presents with lower extremity erythema and left foot lesion from a trauma recent admission for about 2 or 3 weeks for CHF [facility]
Acute on chronic kidney disease with a baseline creatinine from February 2024 at 1.4 spermicides 2.2 with presenting BUN of 145 and a creatinine of 1.9 with a serum sodium of 124 and potassium of 2.9
CHF superimposed with urinary retention
Lower extremity erythema
Anemia of chronic disease
Hyponatremia
Plan:
Follows with Dr. Chacko in our office
BARBARA with increased BUN to creatinine ratio greater than 20:1 on increased dose of torsemide with relative hypotension increasing the ADH effect causing hyponatremia and urinary retention with history of BPH treated and no bacteremia noted
Maintain Ocampo catheter= urology noted patient does not want any workup and apparently has done self catheterizations past and is interested in
Okay with torsemide for now but I will continue to hold the SGLT2 inhibitor
Fluid restrict to 40 ounces as he has been told to keep it around 60 ounces
Monitor strict urine output
Some improvement in his azotemia creatinine is stable close to baseline
Gram-positive cocci bacteremia= vancomycin. Renal dose and check trough
-
-
Date of Service: June 27, 2024
CC / HPI / ROS
-
Chief Complaint:
Acute on chronic kidney disease
History of Present Illness:
Presents with trauma to his toe worsening azotemia and bacteremia and urinary retention
Review of Systems:
No chest pain shortness of breath nausea vomiting
Labs
-
Labs:
WBC 6.7 10^3/uL (4.8-10.8) 06/27/24 07:46
RBC 3.02 10^6/uL (4.70-6.10) L 06/27/24 07:46
Hgb 8.7 g/dL (13.0-18.0) L 06/27/24 07:46
Hct 27.1 % (39.0-52.0) L 06/27/24 07:46
Plt Count 97 10^3/uL (130-400) L 06/27/24 07:46
Sodium 126 mmol/L (135-145) L 06/27/24 07:46
Potassium 3.0 mmol/L (3.5-5.1) L 06/27/24 07:46
Chloride 87 mmol/L (98-107) L 06/27/24 07:46
Carbon Dioxide 25 mmol/L (22-30) 06/27/24 07:46
BUN 122 mg/dl (9-20) H* 06/27/24 07:46
Creatinine 1.7 mg/dL (0.7-1.3) H 06/27/24 07:46
eGFR 41.78 06/27/24 07:46
Glucose 143 mg/dl (70-99) H 06/27/24 07:46
Calcium 8.5 mg/dl (8.4-10.2) 06/27/24 07:46
Gem-P-Fcwzfxssbbe Pept 8290 pg/ml 06/25/24 17:01
Albumin 3.7 g/dl (3.5-5.0) 06/27/24 07:46
Physical Exam
-
Vital Signs:
Vital Signs
Temp Pulse Resp BP Pulse Ox
97.8 F 80 16 85/61 100
06/27/24 07:05 06/27/24 07:05 06/27/24 07:05 06/27/24 07:05 06/27/24 08:10
Respiratory:: Bilateral: CTA
Lung Excursion:: Normal
Abdomen:: Soft
Bowel Sounds:: Normal
Extremity Edema:: +1: Bilateral:
Ocampo Catheter: Yes
--- NOTE | 2024-06-27 12:32 | W.PN.ID1 ---
Date of Service
Date of Service: June 27, 2024
Today's Communication
- preliminary result is CONS - would be suggestive of possible contamination; cultures were at different times, will see if it was recorded that these were definitely different draws
- 06/26 and 06/27 repeat blood cultures x2 sets no in progress
- 06/25 blood cultures - probable CONS - contamination is on the differential
- agree with TTE, and would likely consider YANI as well
- continue vancomycin
Assessment / Plan
Bacteremia vs Contaminated blood cultures
s/p ICD placement 05/30
- preliminary result is CONS - would be suggestive of possible contamination; cultures were at different times, will see if it was recorded that these were definitely different draws
- 06/26 and 06/27 repeat blood cultures x2 sets no in progress
- 06/25 blood cultures - probable CONS - contamination is on the differential
- agree with TTE, and would likely consider YANI as well
- continue vancomycin
Venous stasis Dermatitis - resolving
combined systolic and diastolic CHF
H/o resolved hep C (negative viral load 2021)
Urinary retention
- erythema has resolved with improving edema consistent with venous stasis
- L heel laceration clean, no erythema, no evidence of infection healing
- woodward management per urology/internal medicine
Chief Complaint
-: Bacteremia
Subjective / Review of Systems
afebrile
bp mildly hypotensive
notified last night that he had two sets of blood cultures with gpcs with chains - now see that its a probable CONS
a single set of blood cultures was sent last night (note that I recommended two, but patient refused the second set until today)
Vital Signs / Physical Exam
Vital Signs
Vital Signs
Temp Pulse Resp BP Pulse Ox
97.8 F 80 16 85/61 100
06/27/24 07:05 06/27/24 07:05 06/27/24 07:05 06/27/24 07:05 06/27/24 08:10
Physical Exam
Constitutional: No Acute Distress
Cardiovascular: Regular Rate and S1/S2; Negative Murmur or Rub
Pulmonary: Clear and Symmetric; Negative Wheezes or Rales
Gastrointestinal: Soft, Non Tender, Non Distended and Normal Bowel Sounds
Skin: Warm, Dry and Rash (note hemosiderin deposition on the R leg which he reports is chronic); Negative Jaundice
Objective Data
Lab Data
Lab Results
06/27/24 07:46
06/27/24 07:46
ESR 39 mm/hour (0-20) H 06/26/24 06:27
Estimated Creat Clear 38 ml/min 06/27/24 07:46
Lactic Acid 1.5 mmol/L (0.7-2.0) 06/26/24 01:07
Total Bilirubin 1.0 mg/dl (0.2-1.3) 06/27/24 07:46
AST 39 U/L (17-59) 06/27/24 07:46
ALT 22 U/L (0-50) 06/27/24 07:46
Alkaline Phosphatase 89 U/L (38-126) 06/27/24 07:46
C-Reactive Protein 10.00 mg/L (0.0-10.00) 06/26/24 06:27
Most recent labs reviewed.
Micro Results:
06/25/24 20:23 Blood Culture - Preliminary
Blood/Venous Positive culture in progress
Gram Stain - Preliminary
06/27/24 08:50 Blood Culture - Pending
Blood/Venous
06/25/24 20:38 Blood Culture - Preliminary
Blood/Venous Positive culture in progress
Gram Stain - Preliminary
06/26/24 20:08 Blood Culture - Pending
Blood/Venous
--- NOTE | 2024-06-27 12:37 | VATNOTE ---
MIDLINE DRESSING BLOODY REDRESSED WITH GAUZE, WILL NEED REDRESS BETH
[2024-06-27 15:05] VITALS: BP 92/57
--- NOTE | 2024-06-27 16:32 | CM ---
Addendum entered by Magdalena Erickson 06/29/24 15:38:
Please disregard the addendum below entered on 06/29/2024 at 15:26 which is not accurate for this patient.
Entered in error.
Addendum entered by Magdalena Erickson 06/29/24 15:26:
Pt has been accepted for [facility]. They are currently backlogged, so it may take a week for services to begin. Pt's son made aware of this and is agreeable to start of care whenever [facility] can start.
Plan: Discharge to home with [facility].

Original Note:
Patient with Hx HF, amyloid cardiomyopathy. Room air. Receiving IV Abx. Wound care nurse consult pending. PT/OT recommend HH.
Met with patient who resides with his in a 1 story house with 3 HAYDEN.
The patient has been assisted with ADLs for showering by his and ambulates with his RW and SPC.
DME - RW, SPC, shower chair, CPAP
VN - current with [facility] for SN/PT/OT and wishes to resume
SNF - none
PCP - Yojana Clark
Pharmacy - [facility] Rebeca [facility]
Patient wishes to resume [facility] at d/c- referral placed.
Plan home with resumption [facility].
[2024-06-27 19:51] VITALS: BP 102/62
[2024-06-27 23:36] VITALS: BP 85/44
[2024-06-28] MEDS: TYLENOL 650 MG PO ×2 (02:08→22:53)
[2024-06-28 03:03] VITALS: BP 84/52
[2024-06-28] MEDS: ProAmatine 5 MG PO ×3 (05:34→17:03)
[2024-06-28 05:43] LABS: % Basophils 0.5 % (0-2); % Immature Granulocytes 0.6 % (0-0.5); % Lymphocytes 9.6 % (20.5-51.1); % Monocytes 12.2 % (1.7-9.3); % Neutrophils 75.1 % (42.2-75.2); Absolute Eosinophils 0.1 10^3/uL (0-0.7); Absolute Lymphocytes 0.6 10^3/uL (1.2-3.4); Absolute Monocytes 0.8 10^3/uL (0.1-0.6); Absolute Neutrophils 4.9 10^3/uL (1.4-6.5); Hematocrit 24.5 % (39.0-52.0); Mean Corp Hgb Conc. 32.7 g/dL (33.0-37.0); Mean Corpuscular Hgb 29.2 pg (27.0-31.0); Mean Corpuscular Volume 89.4 fL (80.0-94.0); Mean Platelet Volume 10.2 fL (7.4-10.4); Nucleated Red Blood Cells % 0 % (-); Platelet Count 99 10^3/uL (130-400); Red Blood Cell Count 2.74 10^6/uL (4.70-6.10); Red Cell Dist. Width 16.2 % (11.5-14.5); White Blood Cell Count 6.6 10^3/uL (4.8-10.8)
[2024-06-28 05:57] LABS: Vancomycin Random 15.6 ug/ml
[2024-06-28 06:00] VITALS: BMI 26.7
[2024-06-28 06:08] LABS: ALT (SGPT) 21 U/L (0-50); AST (SGOT) 34 U/L (17-59); Albumin 3.2 g/dl (3.5-5.0); Alkaline Phosphatase 79 U/L (38-126); Calcium 8.5 mg/dl (8.4-10.2); Carbon Dioxide 25 mmol/L (22-30); Chloride 90 mmol/L (98-107); Estimated Creatinine Clearance 32 ml/min; Glucose 107 mg/dl (70-99); Magnesium 2.5 mg/dl (1.6-2.3); Potassium 3.8 mmol/L (3.5-5.1); Sodium 126 mmol/L (135-145); Total Bilirubin 0.6 mg/dl (0.2-1.3); Total Protein 5.7 g/dl (6.3-8.2); eGFR 34.38
[2024-06-28 06:18] LABS: Blood Urea Nitrogen 121 mg/dl (9-20)
--- NOTE | 2024-06-28 07:36 | PHA.VAN.FU ---
Vancomycin Assessment / Plan
- Assessment
Renal Function: SCR Increasing (1.7->2.0)
WBC's are: Stable
In the past 24 hrs, patient has been: Afebrile
Concomitant Antimicrobials: None
- Assessment - Therapeutic Drug Monitoring
Random Level: 15.6 ~ 18 hours after 750 mg yesterday
- Dosing Plan
Continue: dose by random level
Dosing by Level: Re-dose today (750 mg x 1 dose)
- Monitoring Plan
Random Level: redraw random level 06/29 06
- Follow Up
Pharmacy will continue to follow.
Vancomycin Follow UP
- -
Patient Age: 73
Patient Sex: Male
Vancomycin Day #: 3
Indication: Skin And Soft Tissue (LE cellulitis and skin tear)
Requesting Provider: Italo Mei NP
Pertinent Antimicrobial Allergies:
no known allergies
Height / Weight:
Height 5 ft 9 in
Actual Weight 81.902 kg
Pertinent Past Medical History: CKDIII, HF with pedal edema
- Vital Signs / Lab Results
Temp Pulse Resp BP Pulse Ox
97.5 F 82 18 84/52 92
06/28/24 03:03 06/28/24 03:03 06/28/24 03:03 06/28/24 03:03 06/28/24 03:03
Lab Results - Hematology
06/25/24 06/26/24 06/27/24
17:01 06:27 07:46
WBC 6.5 6.8 6.7
06/28/24
05:12
WBC 6.6
Lab Results - Chemistry
06/25/24 06/26/24 06/26/24
17:01 06:27 15:15
BUN 145 H* 133 H* Cancelled
Creatinine 1.9 H 1.8 H Cancelled
Estimated Creat Clear 36 Cancelled
Albumin 4.2 3.6
06/27/24 06/28/24
07:46 05:12
BUN 122 H* 121 H*
Creatinine 1.7 H 2.0 H
Estimated Creat Clear 38 32
Albumin 3.7 3.2 L
06/25/24 06/26/24
20:23 01:07
Lactic Acid 1.1 1.5
Microbiology Results
06/25/24 20:38 Blood Culture - Preliminary
Blood/Venous Coagulase neg. staphylococcus
Gram Stain - Preliminary
06/26/24 20:08 Blood Culture - Preliminary
Blood/Venous No Growth in 24 hours- Final report to follow
06/25/24 20:23 Blood Culture - Preliminary
Blood/Venous Coagulase neg. staphylococcus
Gram Stain - Preliminary
Therapeutic Drug Monitoring
Random Vancomycin 15.6 ug/ml 06/28/24 05:12
[2024-06-28 07:40] VITALS: BP 93/60
--- NOTE | 2024-06-28 10:39 | W.PN.CD ---
Today's Communication / Plan
-
- Continue antibiotics and Midodrine.
- Conservative approach for the biV ICD for now
- If recurrence of infection as outpatient, will need extraction.
Impression / Plan
-
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
post CABG in 2021 who presents with worsening bilateral lower extremity edema. Cardiology is consulted for intermittent tachycardia on telemetry as well as bacteremia with new BiV ICD.
Solution Spec: Dr. Adamson
# Intermittent tachycardia
-Appears to be either atrial flutter or pace-maker mediated tachycardia
-[place] [facility] to interrogated device - No arrhythmia recorded. SR vs PMT.
-No rate control for now given hypotension
# GPC bacteremia
-Coagulase negative - first cultures in ER
-Subsequent are negative
-No leukocytosis or Let shift.
-Discussed at length with ID - possible contamination
-ID recommends conservative approach at this time
-Outpatient cultures.
-If recurrent bacteremia noted, then can consider extraction.
-Patient is 100% BiV Paced now. If extraction is needed, can consider temp permanent PPM from IJ and re-implantation at a later date.
-transthoracic echocardiogram today. May need YANI to rule out lead vegetations.
# Atrial flutter/fibrillation status post PVI
-He may be having recurrence based on intermittent regular tachycardia on telemetry
-Patient recently started on warfarin during May hospitalization, but it has reportedly since been stopped
-Needs anticoagulation regardless of [id number] given amyloid diagnosis.
-Resume tomorrow if no plan for extraction.
# Heart failure with recovered ejection fraction
-TTE 05/17/2024 ([facility]): LVEF 49%, moderate LVH, decreased RV function, moderate MR, mild TR, PASP 42
-Dapagliflozin held for BARBARA
-Other GDMT has been limited by hypotension. Continue midodrine 5 mg 3 times daily.
-Continue torsemide 100 mg twice daily
# Amyloid cardiomyopathy
-Followed by Dr. Cullen at [place]
-Continue tafamidis
# BiV ICD ([facility], 05/2024)
-Placed for sinus node dysfunction, chronotropic incompetence, and VT lasting up to 25 beats
# CAD s/p CABG
- Continue ASA. No statin maybe due to overall poor prognosis
Physical Exam
Vital Signs/Labs
Vital Signs
Temp Pulse Resp BP Pulse Ox
98.5 F 81 18 93/60 94
06/28/24 07:40 06/28/24 07:40 06/28/24 07:40 06/28/24 07:40 06/28/24 07:40
06/27/24 06/28/24 06/29/24
06:59 06:59 06:59
Actual Weight 81.817 kg 81.902 kg
06/28/24 05:12
06/28/24 05:12
Magnesium 2.5 mg/dl (1.6-2.3) H 06/28/24 05:12
06/25/24
17:01
Yam-T-Qlqrxsitayx Pept 8290
Physical Exam
Constitutional: No acute distress and Comfortable
EENT: Anicteric and Moist mucous membranes
Cardiovascular: Rhythm & rate is regular, Pedal edema is absent, JVD pressure is normal and Systolic murmur absent
Respiratory: Respiratory effort normal, Lungs clear to auscul., Wheeze Absent and Crackles Absent
GI: Soft, Distention absent, Non tender and Normal bowel sounds
Neuro/Psych: Alert, Oriented and AO x 3
Data Reviewed
-
Date of Service: June 28, 2024
Medical Decision Making: Reviewed Test Results, Independent Historian Assessment, Test Interpretation and Review of Case with other Provider
EKG: Tracing Personally Visualized and interpreted (Tele showed episodes of AT - recorded as sinus by the ICD. )
Echo: Tracing Personally Visualized and interpreted
X-Ray/CT/US/MRI/NUC/PET: Report Reviewed by me
Labs: Labs Reviewed by me
Old Records: Reviewed
--- NOTE | 2024-06-28 10:53 | W.PN.HOSP.TC ---
Today's Communication/Plan
-
follow up repeat urine studies
IV Vanc, follow up plans with ID and cards for YNAI?
F/U further Renal recs
Assessment / Plan
Assessment / Plan
Physical Exam
General: Not in acute distress
HEENT: Normocephalic
Respiratory: Clear to Auscultation Bilaterally
Cardiac: S1/S2, Regular Rhythm and Peripheral Edema (Bilateral +2 lower leg edema weeping serous fluid, surrounding macular erythematous pruritic rash from upper thighs to lower ankles, left heel skin tear with skin flap surrounding wound bed intact
with no drainage)
GI: Soft, Non Tender, Non Distended, Normal Bowel Sounds
Genito-urinary: Ocampo (Ocampo inserted in ER drained 1000 cc clear urine)
Musculoskeletal: No Cyanosis. Edema, Left Lower Extremity (Bilateral +2 lower leg edema weeping serous fluid, surrounding macular erythematous pruritic rash from upper thighs to lower ankles, left heel skin tear with skin flap surrounding wound bed
intact with no drainage) and Edema, Right Lower Extremity (Bilateral +2 lower leg edema weeping serous fluid, surrounding macular erythematous pruritic rash from upper thighs to lower ankles, left heel skin tear with skin flap surrounding wound bed
intact with no drainage)
Skin: Warm, Dry and Rash (Bilateral lower legs)
Neuro: AAO x 3, Nonfocal/grossly intact
Psych: Calm
Assessment/Plan
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
presented to the emergency department with 1 week history of bilateral lower extremity erythema and pruritus. In ER BP 94/70, pulse 76. BNP 8000. Na 124. He was round to have retention s/p catheter with 1L urine.
#Venous stasis Dermatitis
#Coagulase Neg. Staph Bacteremia
-Follow blood cultures as well as repeat blood cultures
-Continue Vancomycin
-Infectious disease consulted on admission, appreciate evaluation and recommendations
-ESR elevated at 39 and CRP normal
-TTE and possibly YANI (which would check for lead vegetations) -- cardiology onboard, as below
-Might be contamination as per ID, but continue Vanco and echo
#Traumatic left heel wound 2/2 hitting on metal transition strip 4 days ago
#Complicated healing due to +2 bilateral lower extremity edema
-Consult wound care
-Consult PT/OT/case management
#Acute Urinary Retention
#Acute kidney injury on chronic kidney disease with a baseline creatinine from February 2024 at 1.4
-Creat 1.9/bun 145 - prior lab values obtained from daughter - 06/21 BUN was 128 and creatinine 09/02 - slowly increasing
-Patient follows with nephrology for CKD 3B
-Continue Ocampo Catheter -- but patient reported having performed self catheterization years ago and wants to resume it at the time of discharge, so he can have his Ocampo catheter removed at some point in the
near future
-Okay to continue Torsemide for now
-Urinalysis negative
-appreciate Urology consult
-appreciate Renal consult
#Hyponatremia -- suspected Hypervolemic Hyponatremia
- PO FR 40 ounces
- Continue diuretics
- Orthostatics
- Nephrology consulted at the time of admission, appreciate evaluation
#Hypokalemia
-Replaced, continued to monitor BMP
-Magnesium elevated
#Heart failure with recovered ejection fraction
#History of ischemic cardiomyopathy
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
-Continue Tafamidis 61 mg daily (amyloid CM followed by Dr. Cullen at [place])
-Continue Torsemide 100 mg twice daily (this was increased from 80 mg twice daily to 100 mg twice daily during May 2020 for admission at [facility])
-Continue Farxiga 10 mg daily
-Continue midodrine 5 mg 3 times daily
-Follows with [facility] cardiology
-Patient would benefit from compression on the RLE and Tubigrip on the LLE
-Farxiga being held due to BARBARA
-Additional GDMT has been limited by hypotension
#BiV ICD ([facility], 05/2024)
-Placed for sinus node dysfunction, chronotropic incompetence, and VT lasting up to 25 beats
-Device interrogation - per cards note - no arrhythmia recorded
#Pulmonary Hypertension
#Chronic neuropathy bilateral lower extremities
-Continue gabapentin 100 mg 3 times daily
#Orthostatic hypotension
#History of Hypertension
-Continue Midodrine
#CAD/OK/CABG x 3 vessel 2021
-Continue aspirin 81 mg daily
#Acute on chronic anemia
#Hx macrocytic anemia 02/06/2024
-Continue to monitor CBC
#Hyperlipidemia
#Atrial flutter/fibrillation status post PVI
-No anticoagulation due to inability to afford Eliquis $233 per month he states has been off greater than 6 months?
-plan to resume coumadin tomorrow if no plans for extraction
#History of right retinal eye hemorrhage 2022
-Was told he was able to resume anticoagulation but is unable to afford it
#Hx LBBB
#Hx bradycardia
#History restrictive lung disease
#Former smoker
#Hx pulmonary nodule
#History of recurrent pleural effusion requiring thoracentesis
#Obstructive sleep apnea status post uvulectomy
#Overweight
Patient had history of obesity with BMI December has lost weight current BMI is 27
#Chronic ambulatory dysfunction
-Uses cane or walker for long distance
Other PMH:
History of hepatitis remote per patient
H/o resolved hep C (negative viral load 2021)
Raynaud's disease
Gout
Insomnia
Osteoarthritis
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
DVT Prophylaxis: Heparin subq
Code Status: Full code
51 minutes spent on patient care
Anticipated Discharge: 24 - 48 hours
Subjective/Interval History
-
Date of Service: June 28, 2024
legs seem less swollen
Objective Data
-
Labs:
Laboratory Results
06/28/24
05:12
WBC 6.6
Hgb 8.0 L
Hct 24.5 L
Plt Count 99 L
Sodium 126 L
Potassium 3.8 D
Chloride 90 L
Carbon Dioxide 25
BUN 121 H*
Creatinine 2.0 H
Glucose 107 H
Calcium 8.5
Total Bilirubin 0.6
AST 34
ALT 21
Alkaline Phosphatase 79
Vital Signs:
Vital Signs
Temp Pulse Resp BP Pulse Ox
98.5 F 81 18 93/60 94
06/28/24 07:40 06/28/24 07:40 06/28/24 07:40 06/28/24 07:40 06/28/24 07:40
I&O
06/27/24 06/28/24 06/29/24
06:59 06:59 06:59
Intake Total 960 / 960 1590 / 1590
Output Total 3220 / 3220 2500 / 2500
Balance -2260 / -2260 -910 / -910
Review of Systems
-
History Source: Patient
All other systems: Reviewed and negative
Physical Exam
-
General: No Apparent Distress
HEENT: PERRLA
Respiratory: Clear to Auscultation; Negative Wheezes or Rhonchi
Cardiac: Regular Rhythm, S1/S2 and Tachycardic
GI: Soft, Nontender, Nondistended and Normal Bowel Sounds
Musculoskeletal: No Clubbing, No Cyanosis and No Edema
Skin: Other (left heel wound covered and leg wrapped; venous stasis present)
Neuro: Awake, AO x 3, No Motor Deficits and Nonfocal/Grossly Intact
Psych: Calm
Data Reviewed
-
Diagnostic Radiology: Report Reviewed by me
Labs: Labs Reviewed by me
[2024-06-28 11:22] VITALS: BP 96/60
[2024-06-28] MEDS: KCL 40 MEQ PO (11:34)
[2024-06-28] MEDS: NEURONTIN 100 MG PO ×3 (11:35→21:17)
[2024-06-28] MEDS: VITAMIN D3 (cholecalciferol) 25 MCG PO (11:35)
[2024-06-28] MEDS: HEPARIN 5000 UNITS SC ×2 (11:36→21:17)
[2024-06-28] MEDS: VANCOCIN 150 IV (11:36)
[2024-06-28] MEDS: ASPIR LOW (ENTERIC COATED) 81 MG PO (11:36)
--- NOTE | 2024-06-28 13:00 | WOUNDNOTE ---
R 4TH TOE
--- NOTE | 2024-06-28 13:01 | WOUNDNOTE ---
WON RN note: Patient admitted with cellulitis of legs, hyponatremia and urinary retention.
See H&P for complete history. Lives with .
PMH: CAD,CABG,CHF,HTN,LA,Gout, enlarged prostate-frequent urination, L heel and leg wounds, skin tears.
Wound Location and type/assessment: Patient admitted with: partial thickness venous leg ulcers, pink at base. L heel with partial thickness opening from scraping heel on floor partition, base pink. Scattered skin tears on arms and bruising.
Daughter at bedside states he is always getting skin tears and confirmed that L heel ulcer is not pressure related. Offloading heel boot discussed, daughter states he gets up so frequently to use bathroom, has Ocampo currently. Elevated legs in
recliner chair for assessment. Has a recliner chair at home he states and can elevate legs. Uses compression stockings at home but unable to tolerate due to heel wound. + audible pulses on Doppler, skin warm and dry, 1+ edema L leg. R heel with dry
cracked fissures, skin on legs dry with hemosiderin staining. R 4th toe with tiny dry ulcer ? abrasion vs arterial. Patient able to stand on own, minimal assist of daughter. Gluteal cleft with small vertical opening, stage 2 PI.
Appetite:Good.
Pressure redistribution devices in place: Accumax, able to turn self. Provided air chair cushion to chair, instructed he can take home upon discharge. Pressure ulcer prevention measures reviewed with patient.
Plan: All dressings changed, local wound care provided. Recommend L heel honey gel and foam dressing. Tubigrip F applied to L leg knee high, tolerating. Pillow placed under calves. Silicone foam applied to sacrum. Called [facility] for honey gel for L heel
wound, supply placed at bedside. Will confirm orders with hospitalist and updated nurse Tam. Recommend arterial studies if have not been done recently. Will defer to Dr. Landers if deemed necessary.
Updated care plan and will follow as needed.
Note to case management of equipment requested for discharge: VN
Recommend follow up at wound care center upon discharge.
[2024-06-28] MEDS: NON-FORMULARY ITEM 61 MG PO (13:12)
[2024-06-28] MEDS: DEMADEX 100 MG PO ×2 (13:22→21:16)
--- NOTE | 2024-06-28 13:46 | PN.CDI ---
CDI
- -
CDI:
Physician Documentation Request
Admit Date: 06/25/24 22:55
Dear Doctor Anshul,
Clinical Indicators:
Patient admitted with venous stasis dermatitis.
Home medications include: Torsemide 100 mg twice daily
06/28 PN, 'Heart failure with recovered ejection fraction'
Please provide further specificity regarding the most likely acuity of CHF you are evaluating, treating or monitoring.
Chronic HFrEF
Other
Use of terms such as suspected, likely, concern for, or probable (associated with a specific diagnosis that is being evaluated, monitored, or treated as if it exists) are acceptable and can be coded in the inpatient setting, when documented at the
time of discharge.
Thank you,
Ernestine Pena RN BSN
CDI Specialist
available via tiger text
Please use your independent medical judgment in providing your response.
--- NOTE | 2024-06-28 13:52 | W.PN.ID1 ---
Date of Service
Date of Service: June 28, 2024
Today's Communication
- 06/25 blood cultures - CONS - contamination is on the differential, symptoms on presentation were not suggestive of endocarditis
- lab will get specific ID and sensi
- scheduled for YANI appreciate cardiology assistance
- continue vancomycin
Assessment / Plan
Bacteremia vs Contaminated blood cultures
s/p ICD placement 05/30
- 06/26 and 06/27 repeat blood cultures x2 sets no in progress
- 06/25 blood cultures - CONS - contamination is on the differential, symptoms on presentation were not suggestive of endocarditis
- lab will get specific ID and sensi
- scheduled for YANI appreciate cardiology assistance
- continue vancomycin
Venous stasis Dermatitis - resolving
combined systolic and diastolic CHF
H/o resolved hep C (negative viral load 2021)
Urinary retention
- erythema has resolved with improving edema consistent with venous stasis
- L heel laceration clean, no erythema, no evidence of infection healing
- woodward management per urology/internal medicine
Chief Complaint
-: Bacteremia
Subjective / Review of Systems
afebrile
bp stable
repeat blood cultures are no growth at 24 hours
Vital Signs / Physical Exam
Vital Signs
Vital Signs
Temp Pulse Resp BP Pulse Ox
97.6 F 85 18 96/68 99
06/28/24 11:22 06/28/24 13:22 06/28/24 11:22 06/28/24 13:22 06/28/24 11:22
Physical Exam
Constitutional: No Acute Distress
Cardiovascular: Regular Rate and S1/S2; Negative Murmur or Rub
Pulmonary: Clear and Symmetric; Negative Wheezes or Rales
Gastrointestinal: Soft, Non Tender, Non Distended and Normal Bowel Sounds
Skin: Warm and Dry; Negative Rash or Jaundice
Objective Data
Lab Data
Lab Results
06/28/24 05:12
06/28/24 05:12
ESR 39 mm/hour (0-20) H 06/26/24 06:27
Estimated Creat Clear 32 ml/min 06/28/24 05:12
Lactic Acid 1.5 mmol/L (0.7-2.0) 06/26/24 01:07
Total Bilirubin 0.6 mg/dl (0.2-1.3) 06/28/24 05:12
AST 34 U/L (17-59) 06/28/24 05:12
ALT 21 U/L (0-50) 06/28/24 05:12
Alkaline Phosphatase 79 U/L (38-126) 06/28/24 05:12
C-Reactive Protein 10.00 mg/L (0.0-10.00) 06/26/24 06:27
Most recent labs reviewed.
Micro Results:
06/25/24 20:38 Blood Culture - Preliminary
Blood/Venous Coagulase neg. staphylococcus
Gram Stain - Preliminary
06/25/24 20:23 Blood Culture - Preliminary
Blood/Venous Coagulase neg. staphylococcus
Gram Stain - Final
06/27/24 08:50 Blood Culture - Preliminary
Blood/Venous No Growth in 24 hours- Final report to follow
06/26/24 20:08 Blood Culture - Preliminary
Blood/Venous No Growth in 24 hours- Final report to follow
Care Review
Plan reviewed with: Physician (Dr Mejia, Dr Anshul LOMELI)
[2024-06-28 15:15] VITALS: BP 97/61
[2024-06-28 15:21] LABS: Osmolality Urine 320 mOsm/kg (300-900)
[2024-06-28 15:42] LABS: Urine Sodium 18 mmol/L (30-90)
--- NOTE | 2024-06-28 16:25 | W.PN.NEPH.PH ---
Today's Communication / Plan
-
samsca
labs in am
Assessment/Plan
-
IMP:
Acute on chronic kidney disease with a baseline creatinine from February 2024 at 1.4 spermicides 2.2 with presenting BUN of 145 and a creatinine of 1.9 with a serum sodium of 124 and potassium of 2.9
CHF superimposed-Amyloid
urinary retention
Lower extremity erythema
Anemia of chronic disease
Hyponatremia
past medical history of CKD stage IIIb, ischemic cardiomyopathy EF 50-55% September 2023, chronic diastolic heart failure, chronic bilateral leg edema, orthostatic hypotension, HTN�benign, CAD/[place]/CABG x 3 vessel 2021, chronic anemia, chronic macrocytic
anemia presents with lower extremity erythema and left foot lesion from a trauma recent admission for about 2 or 3 weeks for CHF [facility]
Plan:
Follows with Dr. Chacko in our office
cr seem to be stable at baseline
Azotemia is improving slowly, s/p crissy [facility]OL[facility] follows
hyponatremia-high ADH mediated underlying CHF, U osmo high 320, U na 18
would dose samsca today and cont TOrsemide
maintain FR 40ounces/day
could resume Farxiga at d/c
BP soft on Midodrine
replace k
on Vanc per ID, level 15.6
follow h/h
labs in am
-
-
Date of Service: June 28, 2024
CC / HPI / ROS
-
Chief Complaint:
Acute on chronic kidney disease
History of Present Illness:
Presents with trauma to his toe worsening azotemia and bacteremia and urinary retention
ct stable at 2
BUN 121
sodium no change at 126
hb low at 8
Review of Systems:
No chest pain shortness of breath nausea vomiting
feels well
wt stable
Labs
-
Labs:
WBC 6.6 10^3/uL (4.8-10.8) 06/28/24 05:12
RBC 2.74 10^6/uL (4.70-6.10) L 06/28/24 05:12
Hgb 8.0 g/dL (13.0-18.0) L 06/28/24 05:12
Hct 24.5 % (39.0-52.0) L 06/28/24 05:12
Plt Count 99 10^3/uL (130-400) L 06/28/24 05:12
Sodium 126 mmol/L (135-145) L 06/28/24 05:12
Potassium 3.8 mmol/L (3.5-5.1) D 06/28/24 05:12
Chloride 90 mmol/L (98-107) L 06/28/24 05:12
Carbon Dioxide 25 mmol/L (22-30) 06/28/24 05:12
BUN 121 mg/dl (9-20) H* 06/28/24 05:12
Creatinine 2.0 mg/dL (0.7-1.3) H 06/28/24 05:12
eGFR 34.38 06/28/24 05:12
Glucose 107 mg/dl (70-99) H 06/28/24 05:12
Calcium 8.5 mg/dl (8.4-10.2) 06/28/24 05:12
Ysk-J-Uhrosmexfbq Pept 8290 pg/ml 06/25/24 17:01
Albumin 3.2 g/dl (3.5-5.0) L 06/28/24 05:12
Physical Exam
-
Vital Signs:
Vital Signs
Temp Pulse Resp BP Pulse Ox
97.6 F 81 18 97/61 92
06/28/24 15:15 06/28/24 15:15 06/28/24 15:15 06/28/24 15:15 06/28/24 15:15
Cardiovascular:: Regular rate and rhythm
Respiratory:: Bilateral: CTA
Lung Excursion:: Normal
Abdomen:: Nontender and Soft
Extremity Edema:: +1: Bilateral:
Ocampo Catheter: Yes
Other Findings::
left leg in dressing
[2024-06-28] MEDS: SAMSCA 15 MG PO (17:03)
[2024-06-28 20:13] VITALS: BP 103/62
[2024-06-28 23:53] VITALS: BP 93/47
[2024-06-29 03:16] VITALS: BP 96/52
[2024-06-29 05:21] LABS: % Basophils 0.5 % (0-2); % Immature Granulocytes 0.6 % (0-0.5); % Lymphocytes 9.6 % (20.5-51.1); % Monocytes 10.7 % (1.7-9.3); % Neutrophils 76.6 % (42.2-75.2); Absolute Eosinophils 0.1 10^3/uL (0-0.7); Absolute Lymphocytes 0.6 10^3/uL (1.2-3.4); Absolute Monocytes 0.7 10^3/uL (0.1-0.6); Hematocrit 24.1 % (39.0-52.0); Hemoglobin 7.9 g/dL (13.0-18.0); Mean Corp Hgb Conc. 32.8 g/dL (33.0-37.0); Mean Corpuscular Hgb 28.8 pg (27.0-31.0); Nucleated Red Blood Cells % 0 % (-); Platelet Count 102 10^3/uL (130-400); Red Blood Cell Count 2.74 10^6/uL (4.70-6.10); White Blood Cell Count 6.5 10^3/uL (4.8-10.8)
[2024-06-29] MEDS: ProAmatine 5 MG PO ×2 (05:33→12:29)
[2024-06-29 05:37] LABS: Vancomycin Random 18.7 ug/ml
[2024-06-29 06:00] VITALS: BMI 26.7
[2024-06-29 06:10] LABS: ALT (SGPT) 22 U/L (0-50); AST (SGOT) 35 U/L (17-59); Albumin 3.4 g/dl (3.5-5.0); Alkaline Phosphatase 87 U/L (38-126); Blood Urea Nitrogen 111 mg/dl (9-20); Calcium 8.5 mg/dl (8.4-10.2); Carbon Dioxide 25 mmol/L (22-30); Chloride 91 mmol/L (98-107); Estimated Creatinine Clearance 36 ml/min; Glucose 111 mg/dl (70-99); Magnesium 2.5 mg/dl (1.6-2.3); Potassium 3.9 mmol/L (3.5-5.1); Sodium 127 mmol/L (135-145); Total Bilirubin 0.6 mg/dl (0.2-1.3); Total Protein 5.9 g/dl (6.3-8.2); eGFR 39.01
--- NOTE | 2024-06-29 07:04 | PHA.VAN.FU ---
Vancomycin Assessment / Plan
- Assessment
Renal Function: SCR Decreasing (2.0->1.8)
WBC's are: WNL
In the past 24 hrs, patient has been: Afebrile
Concomitant Antimicrobials: none
- Assessment - Therapeutic Drug Monitoring
Random Level: 18.7 ~17 hours post 750 mg dose
- Dosing Plan
Dosing by Level: Hold off on dosing today
- Monitoring Plan
Random Level: level in the AM
- Follow Up
Pharmacy will continue to follow.
Vancomycin Follow UP
- -
Patient Age: 73
Patient Sex: Male
Vancomycin Day #: 4
Indication: Skin And Soft Tissue (LE cellulitis and skin tear)
Requesting Provider: Italo Mei NP
Pertinent Antimicrobial Allergies:
no known allergies
Height / Weight:
Height 5 ft 9 in
Actual Weight 82.055 kg
Pertinent Past Medical History: CKDIII, HF with pedal edema
- Vital Signs / Lab Results
Temp Pulse Resp BP Pulse Ox
97.6 F 82 18 101/59 97
06/29/24 03:16 06/29/24 05:33 06/29/24 03:16 06/29/24 05:33 06/29/24 03:16
Lab Results - Hematology
06/26/24 06/27/24 06/28/24
06:27 07:46 05:12
WBC 6.8 6.7 6.6
06/29/24
05:09
WBC 6.5
Lab Results - Chemistry
06/26/24 06/26/24 06/27/24
06:27 15:15 07:46
BUN 133 H* Cancelled 122 H*
Creatinine 1.8 H Cancelled 1.7 H
Estimated Creat Clear 36 Cancelled 38
Albumin 3.6 3.7
06/28/24 06/29/24
05:12 05:09
BUN 121 H* 111 H*
Creatinine 2.0 H 1.8 H
Estimated Creat Clear 32 36
Albumin 3.2 L 3.4 L
Microbiology Results
06/26/24 20:08 Blood Culture - Preliminary
Blood/Venous No Growth in 48 hours- Final report to follow
06/25/24 20:38 Blood Culture - Preliminary
Blood/Venous Coagulase neg. staphylococcus
Gram Stain - Preliminary
06/25/24 20:23 Blood Culture - Preliminary
Blood/Venous Coagulase neg. staphylococcus
Gram Stain - Final
06/27/24 08:50 Blood Culture - Preliminary
Blood/Venous No Growth in 24 hours- Final report to follow
Therapeutic Drug Monitoring
Random Vancomycin 18.7 ug/ml 06/29/24 05:09
--- NOTE | 2024-06-29 07:09 | W.PN.HOSP.TC ---
Addendum entered and electronically signed by Alley Landers MD 06/30/24 07:31:
luteal Cleft Stage 2 Pressure Injury, POA
appreciate wound care
Original Note:
Today's Communication/Plan
-
expect DC today after final recommendations from Nephrology
Assessment / Plan
Assessment / Plan
Physical Exam
General: Not in acute distress
HEENT: Normocephalic
Respiratory: Clear to Auscultation Bilaterally
Cardiac: S1/S2, Regular Rhythm and Peripheral Edema (Bilateral +2 lower leg edema weeping serous fluid, surrounding macular erythematous pruritic rash from upper thighs to lower ankles, left heel skin tear with skin flap surrounding wound bed intact
with no drainage)
GI: Soft, Non Tender, Non Distended, Normal Bowel Sounds
Genito-urinary: Ocampo (Ocampo inserted in ER drained 1000 cc clear urine)
Musculoskeletal: No Cyanosis. Edema, Left Lower Extremity (Bilateral +2 lower leg edema weeping serous fluid, surrounding macular erythematous pruritic rash from upper thighs to lower ankles, left heel skin tear with skin flap surrounding wound bed
intact with no drainage) and Edema, Right Lower Extremity (Bilateral +2 lower leg edema weeping serous fluid, surrounding macular erythematous pruritic rash from upper thighs to lower ankles, left heel skin tear with skin flap surrounding wound bed
intact with no drainage)
Skin: Warm, Dry and Rash (Bilateral lower legs)
Neuro: AAO x 3, Nonfocal/grossly intact
Psych: Calm
Assessment/Plan
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
presented to the emergency department with 1 week history of bilateral lower extremity erythema and pruritus. In ER BP 94/70, pulse 76. BNP 8000. Na 124. He was round to have retention s/p catheter with 1L urine.
#Venous stasis Dermatitis
#Coagulase Neg. Staph Bacteremia -
-blood cultures growing different species
-TTE and YANI negative - OK to stop abx per ID
#Traumatic left heel wound 2/2 hitting on metal transition strip 4 days ago
#Complicated healing due to +2 bilateral lower extremity edema
-Consult wound care
-Consult PT/OT/case management
#Acute Urinary Retention
#Acute kidney injury on chronic kidney disease with a baseline creatinine from February 2024 at 1.4
-Creat 1.9/bun 145 - prior lab values obtained from daughter - 06/21 BUN was 128 and creatinine 09/02 - slowly increasing
-Patient follows with nephrology for CKD 3B
-OK to go home with self cath
-Urinalysis negative
-appreciate Urology consult
-appreciate Renal consult
#Hyponatremia -- suspected Hypervolemic Hyponatremia, likely component SIADH
- PO FR 40 ounces
- Continue diuretics
- appreciate renal
- s/p Samsca 06/28, may need another dose today
-will arrange for close follow up labs
#Hypokalemia
-Replaced, continued to monitor BMP
-Magnesium elevated
#Heart failure with recovered ejection fraction - chronic
#History of ischemic cardiomyopathy
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
-Continue Tafamidis 61 mg daily (amyloid CM followed by Dr. Cullen at [place])
-Continue Torsemide 100 mg twice daily (this was increased from 80 mg twice daily to 100 mg twice daily during May 2020 for admission at [facility])
-Continue Farxiga 10 mg daily
-Continue midodrine 5 mg 3 times daily
-Follows with [facility] cardiology
-Patient would benefit from compression on the RLE and Tubigrip on the LLE
-Farxiga being held due to BARBARA
-Additional GDMT has been limited by hypotension
#BiV ICD ([facility], 05/2024)
-Placed for sinus node dysfunction, chronotropic incompetence, and VT lasting up to 25 beats
-Device interrogation - per cards note - no arrhythmia recorded
#Pulmonary Hypertension
#Chronic neuropathy bilateral lower extremities
-Continue gabapentin 100 mg 3 times daily
#Orthostatic hypotension
#History of Hypertension
-Continue Midodrine
#CAD/LA/CABG x 3 vessel 2021
-Continue aspirin 81 mg daily
#Acute on chronic anemia
#Hx macrocytic anemia 02/06/2024
-Continue to monitor CBC
#Hyperlipidemia
#Atrial flutter/fibrillation status post PVI
-No anticoagulation due to inability to afford Eliquis $233 per month he states has been off greater than 6 months?
- may start coumadin - will discuss with Cardiology
#History of right retinal eye hemorrhage 2022
-Was told he was able to resume anticoagulation but is unable to afford it
#Hx LBBB
#Hx bradycardia
#History restrictive lung disease
#Former smoker
#Hx pulmonary nodule
#History of recurrent pleural effusion requiring thoracentesis
#Obstructive sleep apnea status post uvulectomy
#Overweight
Patient had history of obesity with BMI December has lost weight current BMI is 27
#Chronic ambulatory dysfunction
-Uses cane or walker for long distance
Other PMH:
History of hepatitis remote per patient
H/o resolved hep C (negative viral load 2021)
Raynaud's disease
Gout
Insomnia
Osteoarthritis
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
DVT Prophylaxis: Heparin subq
Code Status: Full code
51 minutes spent on patient care
Anticipated Discharge: Within 24 hours
Subjective/Interval History
-
Date of Service: June 29, 2024
feeling better
wants to leave
Objective Data
-
Labs:
Laboratory Results
06/29/24
05:09
WBC 6.5
Hgb 7.9 L
Hct 24.1 L
Plt Count 102 L
Sodium 127 L
Potassium 3.9
Chloride 91 L
Carbon Dioxide 25
BUN 111 H*
Creatinine 1.8 H
Glucose 111 H
Calcium 8.5
Total Bilirubin 0.6
AST 35
ALT 22
Alkaline Phosphatase 87
Vital Signs:
Vital Signs
Temp Pulse Resp BP Pulse Ox
97.6 F 82 18 101/59 97
06/29/24 03:16 06/29/24 05:33 06/29/24 03:16 06/29/24 05:33 06/29/24 03:16
I&O
06/28/24 06/29/24 06/30/24
06:59 06:59 06:59
Intake Total 1590 / 1590 360 / 360
Output Total 2500 / 2500 3350 / 3350
Balance -910 / -910 -2990 / -2990
Review of Systems
-
History Source: Patient
All other systems: Reviewed and negative
Physical Exam
-
General: No Apparent Distress
HEENT: PERRLA
Respiratory: Clear to Auscultation; Negative Wheezes or Rhonchi
Cardiac: Regular Rhythm, S1/S2 and Tachycardic
GI: Soft, Nontender, Nondistended and Normal Bowel Sounds
Musculoskeletal: No Clubbing, No Cyanosis and No Edema
Skin: Other (left heel wound covered and leg wrapped; venous stasis present)
Neuro: Awake, AO x 3, No Motor Deficits and Nonfocal/Grossly Intact
Psych: Calm
Data Reviewed
-
Diagnostic Radiology: Report Reviewed by me
Labs: Labs Reviewed by me
[2024-06-29 07:27] LABS: Iron 38 ug/dl (49-181)
[2024-06-29 07:38] LABS: Percent Saturation 9 % (20-50); Total Iron Binding Capacity 418 ug/dl (261-462)
[2024-06-29 07:59] VITALS: BP 95/56
--- NOTE | 2024-06-29 09:32 | W.PN.CD ---
Today's Communication / Plan
-
YANI negative for endocarditis
Defer resuming SGLT2i to renal
No AC as he was taken off of it by his primary online marketer and will follow up with her on 07/05/24.
F/up with Dr. Adamson on 09/09/24
Impression / Plan
-
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
post CABG in 2021 who presents with worsening bilateral lower extremity edema. Cardiology is consulted for intermittent tachycardia on telemetry as well as bacteremia with new BiV ICD.
Middle [employer] Football Coach: Dr. Adamson
# GPC bacteremia
-2 species of CoNS on first set of cultures. Subsequent are negative. No leukocytosis or Left shift.
-Discussed at length with ID - possible contamination
-YANI without any evidence of endocarditis
-ID recommends conservative approach at this time
-Outpatient cultures.
-If recurrent bacteremia noted, then can consider extraction.
# Intermittent tachycardia
-Interrogated device. No arrhythmia recorded. SR vs PMT.
# Atrial flutter/fibrillation status post PVI
-Patient recently started on warfarin during May hospitalization, but was then stopped for falls. Plan is to reevaluate with outpatient cards on 07/05/24. Wll defer to them.
# Heart failure with recovered ejection fraction
-TTE 05/17/2024 ([facility]): LVEF 49%, moderate LVH, decreased RV function, moderate MR, mild TR, PASP 42
-Dapagliflozin held for BARBARA
-Other GDMT has been limited by hypotension. Continue midodrine 5 mg 3 times daily.
-Continue torsemide 100 mg twice daily + Tolvaptan
-Nephrology assisting with volume management, appreciate recs
# Amyloid cardiomyopathy
-Followed by Dr. Cullen at [place]
-Continue tafamidis
# BiV ICD ([facility], 05/2024)
-Placed for sinus node dysfunction, chronotropic incompetence, and VT lasting up to 25 beats
# CAD s/p CABG
- Continue ASA. No statin maybe due to overall poor prognosis
Subjective: Patient is stable today. No cardiovascular complaints.
Physical Exam
Vital Signs/Labs
Vital Signs
Temp Pulse Resp BP Pulse Ox
97.5 F 82 18 95/56 96
06/29/24 07:59 06/29/24 07:59 06/29/24 07:59 06/29/24 07:59 06/29/24 07:59
06/28/24 06/29/24 06/30/24
06:59 06:59 06:59
Actual Weight 81.902 kg 82.055 kg
06/29/24 05:09
06/29/24 05:09
Magnesium 2.5 mg/dl (1.6-2.3) H 06/29/24 05:09
06/25/24
17:01
Ofm-G-Zczfjwnrzfa Pept 8290
Physical Exam
Constitutional: No acute distress and Comfortable
Cardiovascular: Rhythm & rate is regular, Pedal edema present, S1S2 is normal and Murmur/rub/gallop absent
Respiratory: Respiratory effort normal and Lungs clear to auscul.
Data Reviewed
-
Date of Service: June 29, 2024
Medical Decision Making: Reviewed Test Results, Independent Historian Assessment and Test Interpretation
EKG: Tracing Personally Visualized and interpreted
Echo: Tracing Personally Visualized and interpreted
Labs: Labs Reviewed by me
[2024-06-29 09:53] LABS: Ferritin 24.9 ng/ml (17.9-464.0)
[2024-06-29 11:10] VITALS: BP 87/52
[2024-06-29 12:10] VITALS: BP 96/52
[2024-06-29] MEDS: ASPIR LOW (ENTERIC COATED) 81 MG PO (12:23)
[2024-06-29] MEDS: HEPARIN SC (12:23)
[2024-06-29] MEDS: DEMADEX 100 MG PO (12:23)
[2024-06-29] MEDS: KCL 40 MEQ PO (12:24)
[2024-06-29] MEDS: NEURONTIN 100 MG PO (12:24)
[2024-06-29] MEDS: NON-FORMULARY ITEM 61 MG PO (12:25)
[2024-06-29] MEDS: VITAMIN D3 (cholecalciferol) 25 MCG PO (12:28)
--- NOTE | 2024-06-29 12:30 | W.PN.ID1 ---
Date of Service
Date of Service: June 29, 2024
Today's Communication
blood cultures were contaminated
follow up with cardiology, no antibiotics needed
Assessment / Plan
Contaminated blood cultures
s/p ICD placement 05/30
- 06/26 and 06/27 repeat blood cultures x2 sets no in progress
- 06/25 blood cultures two different CONS (S hominis and S epidermidis) confirms contamination
- YANI no lesions
- stopped vancomycin
- follow up with cardiology
Venous stasis Dermatitis - resolving
combined systolic and diastolic CHF
H/o resolved hep C (negative viral load 2021)
Urinary retention
- erythema has resolved with improving edema consistent with venous stasis
- L heel laceration clean, no erythema, no evidence of infection healing
- woodward management per urology/internal medicine
Chief Complaint
-: Bacteremia
Subjective / Review of Systems
discussed results with patient and adult daughter today
remains afebrile
bp stable
Vital Signs / Physical Exam
Vital Signs
Vital Signs
Temp Pulse Resp BP Pulse Ox
98 F 85 18 96/52 96
06/29/24 11:10 06/29/24 12:10 06/29/24 12:10 06/29/24 12:10 06/29/24 12:10
Physical Exam
Constitutional: No Acute Distress
Cardiovascular: Regular Rate and S1/S2; Negative Murmur or Rub
Pulmonary: Clear and Symmetric; Negative Wheezes or Rales
Gastrointestinal: Soft, Non Tender, Non Distended and Normal Bowel Sounds
Skin: Warm and Dry; Negative Rash or Jaundice
Lines: Other (pacemaker no erythema, warmth, swelling or tenderness)
Objective Data
Lab Data
Lab Results
06/29/24 05:09
06/29/24 05:09
ESR 39 mm/hour (0-20) H 06/26/24 06:27
Estimated Creat Clear 36 ml/min 06/29/24 05:09
Lactic Acid 1.5 mmol/L (0.7-2.0) 06/26/24 01:07
Total Bilirubin 0.6 mg/dl (0.2-1.3) 06/29/24 05:09
AST 35 U/L (17-59) 06/29/24 05:09
ALT 22 U/L (0-50) 06/29/24 05:09
Alkaline Phosphatase 87 U/L (38-126) 06/29/24 05:09
C-Reactive Protein 10.00 mg/L (0.0-10.00) 06/26/24 06:27
Most recent labs reviewed.
Micro Results:
06/27/24 08:50 Blood Culture - Preliminary
Blood/Venous No Growth in 48 hours- Final report to follow
06/25/24 20:23 Blood Culture - Final
Blood/Venous Staphylococcus epidermidis
Gram Stain - Final
06/25/24 20:38 Blood Culture - Final
Blood/Venous Staphylococcus hominis
Gram Stain - Final
06/26/24 20:08 Blood Culture - Preliminary
Blood/Venous No Growth in 48 hours- Final report to follow
Care Review
Plan reviewed with: Physician (Dr Landers and Dr Matos - contamination)
[2024-06-29 13:08] VITALS: BMI 26.7
[2024-06-29] MEDS: SAMSCA 30 MG PO (13:08)
[2024-06-29 13:33] VITALS: BP 98/53
--- NOTE | 2024-06-29 14:17 | VATNOTE ---
Right Midline removed, site bleeding profusely, direct pressure applied x 15min till bleeding stopped, wrapped with maxwell to continue pressure.
--- NOTE | 2024-06-29 14:33 | W.DS.TRANS ---
DC Summary - Animator
-
Discharge Instructions:
Sleep Apnea Risk Intermediate
Discharge Diagnosis/Procedures Urinary Retention, Chronic Kidney Disease,
Hyponatremia, (contaminant in blood cultures)
Additional Diets Restrict fluids to 40Oz
Activity As tolerated
Driving Restrictions As prior to admission
Bathing Restrictions None
Blood Work BMP on Friday07/02/24
Others Tests Arterial US recommended and can be ordered by
your outpatient provider
Other Services VN,PT,OT
Specialty Instructions Weigh Daily
Instructions:
Stand-Alone Forms:
Changes to Home Medications: No
Discharge Medications:
DC Medications w/original date entered in [employer]
cholecalciferol (vitamin D3) 25 mcg (1,000 unit) capsule (Vitamin D3) 25 mcg PO DAILY Supplement 03/18/22
midodrine 5 mg tablet 5 mg PO TID@0600,1200,1700 HYPOTENSION 05/12/24
aspirin 81 mg tablet,delayed release 81 mg PO DAILY Blood Clot Prevention/Tx 06/25/24
dapagliflozin propanediol 10 mg tablet (Farxiga) 10 mg PO DAILY Heart Failure 06/25/24
gabapentin 100 mg capsule 100 mg PO TID NEUROPATHY 06/25/24
metolazone 2.5 mg tablet 2.5 mg PO DAILYPRN PRN excess swelling/weight gain 06/25/24
potassium chloride 20 mEq tablet,extended release(part/cryst) 40 meq PO DAILY Electrolyte Repletion 06/25/24
tafamidis 61 mg capsule (Vyndamax) 61 mg PO DAILY Amyloid cardiomyopathy 06/25/24
torsemide 20 mg tablet 100 mg PO BID Heart Failure 06/25/24
Home Medication Changes
Pending Results: No
--- NOTE | 2024-06-29 15:09 | W.DCSUMMARY ---
Discharge Summary
Discharge Data
Date of Admission: 06/25/24
Date of Discharge: 06/29/24
-
Pending Results: No
Hospital Course
Discharging Physician : Dr. Alley Lanedrs
Disposition : Home with Home Care
Primary care physician : Dr. Kinsey (Stereo Equipment Salesperson)
Principal Discharge diagnosis : Urinary Retention, Hyponatremia, Blood Culture Contaminant
Hospital Course :
Mr. Candelario Zurita is a 73 yo man with hx HFpEF, hypotension on midodrine, SSS and NSVT s/p BiV ICD, and CAD status post CABG in 2021, amyloid cardiomyopathy on Tafamidis, atrial fibrillation s/p PVI 2022 not on AC 2/2 falls, presents to the ER
with one week of lower extremity swelling and pruritis. Labs significant for Na 124, BUN 145, creatinine 1.9, BNP 8000, WBC 6.4. He was found to have urinary retention s/p woodward catheter placement.
Patient was admitted to medicine for treatment of b/l LE cellulitis, BARBARA with elevated BUN, Hyponatremia. Hospital course by problem:
Regarding urinary retention, UA negative for infection. He prefers to self cath at home which he has in the past. Self cath supplies not available today so patient is discharged with woodward catheter and will transition to straight cath at next VN
visit. He will follow up closely with Urology.
Blood cultures drawn at admission showed 2 sets coag negative staph. ID and Cardiology were consulted. TTE and YANI without e/o infection. The staph were isolated to different species therefore no need to continue antibiotics at DC.
Patient's sodium improved with Torsemide and addition of Samsca. Na 127 on day of discharge s/p additional Samsca with plans to repeat labs in 3 days.
Patient will have further discussions with his Stereo Equipment Salesperson on whether or not to resume coumadin.
Of note, seen by wound care who recommends arterial US, not able to be completed here prior to DC and should be ordered as outpatient. Patient had b/l dopplerable pulses. He is given wound care instructions.
Time spent on discharge was 45 minutes.
Important imaging findings :
TTE
CONCLUSIONS
Normal left ventricular size with moderate concentric left ventricular
hypertrophy and mildly reduced systolic function. LVEF 45-50%.
GLS endo peak avg = -6.0 % with apical sparing, consistent with known cardiac
amyloidosis.
Normal right ventricular size with reduced systolic function.
Biatrial enlargement.
Mild to moderate mitral regurgitation.
Mild aortic regurgitation.
Mild to moderate tricuspid regurgitation with top normal pulmonary artery
pressures (PASP 35 mmHg).
Compared to prior echocardiogram on 10/01/2023, LVEF has decreased from 50-55%
to 45-50%. Valvular regurgitation is stable. No obvious valvular vegetations
though noting that YANI is a more specific test to rule out endocarditis.
Indications:
concern for endocarditis
YANI
CONCLUSIONS
Normal left ventricular size with mildly reduced systolic function. LVEF 40-
45%.
Normal right ventricular size with reduced systolic function.
Biatrial enlargement.
Mild to moderate secondary mitral regurgitation.
Mild to moderate tricuspid regurgitation.
Small patent foramen ovale with hriqm-jv-acnp shunt.
No evidence of endocarditis.
No change compared to TTE on 06/28/2024 accounting for differences in
technique.
Indications:
BACTEREMIA
Procedure findings :
Discharge Plan
-
Patient Disposition: Home with Home Care
Discharge Diagnosis/Procedures: Urinary Retention, Chronic Kidney Disease, Hyponatremia, (contaminant in blood cultures)
Additional Diets: Restrict fluids to 40Oz
Activity: As tolerated
Driving Restrictions: As prior to admission
Bathing Restrictions: None
Blood Work: BMP on Friday07/02/24
Others Tests: Arterial US recommended and can be ordered by your outpatient provider
Other Services: VN, PT and OT
Specialty Instructions: Weigh Daily- Call MD for wt gain/loss 3 lbs overnight/5 lbs in 1 week
Activity Restrictions/Additional Instructions:
Wound Care Instructions
L heel: clean with soap and water, skin prep periwound, smear of honey gel and foam dressing change daily and prn drainage.
L leg: clean with soap and water, adaptic, alginate for large drainage and dry dressing daily and prn drainage
R leg, R 4th toe and L arm: clean with soap and water, dry dressing q other day and prn drainage.
R arm: clean with soap and water, adaptic, alginate for increased drainage and dry dressing change q other day and prn soilage
gluteal cleft: clean with soap and water, silicone foam change q 3 days and prn soilage
Tubigrip F to L leg knee high daily until can tolerate compression stockings.
Offload L heel with pillows under calves
Air chair cushion when sitting can take upon discharge
increase protein in diet
Follow up at wound care center call for an appointment.
Please follow up with Dr. Cadet as planned
Referrals:
Tavo Sales MD [Active] - in three to four weeks
UNKNOWN - PT NOT,INTERVIEWE [Family Provider] -
Prescriptions:
Continued
cholecalciferol (vitamin D3) [Vitamin D3] 25 mcg (1,000 unit) Capsule
25 mcg PO DAILY
midodrine 5 mg Tablet
5 mg PO TID@0600,1200,1700
metolazone 2.5 mg Tablet
2.5 mg PO DAILYPRN PRN (Reason: excess swelling/weight gain)
aspirin 81 mg Tablet,Delayed Release (Dr/Ec)
81 mg PO DAILY
potassium chloride 20 mEq Tablet,Er Particles/Crystals
40 meq PO DAILY
gabapentin 100 mg Capsule
100 mg PO TID
dapagliflozin propanediol [Farxiga] 10 mg Tablet
10 mg PO DAILY
Vyndamax 61 mg Capsule
61 mg PO DAILY
torsemide 20 mg tablet
100 mg PO BID
Discharge Orders:
Discharge Patient (As Directed); Ordered 06/29/24
Ordered By: Alley Landers
Discharge Date and Time
Print Language: IRAQI
--- NOTE | 2024-06-29 15:15 | W.PN.NEPH.PH ---
Today's Communication / Plan
-
ok for d/c
Assessment/Plan
-
IMP:
Acute on chronic kidney disease with a baseline creatinine from February 2024 at 1.4 spermicides 2.2 with presenting BUN of 145 and a creatinine of 1.9 with a serum sodium of 124 and potassium of 2.9
CHF superimposed-Amyloid
urinary retention
Lower extremity erythema
Anemia of chronic disease
Hyponatremia
past medical history of CKD stage IIIb, ischemic cardiomyopathy EF 50-55% September 2023, chronic diastolic heart failure, chronic bilateral leg edema, orthostatic hypotension, HTN�benign, CAD/VT/CABG x 3 vessel 2021, chronic anemia, chronic macrocytic
anemia presents with lower extremity erythema and left foot lesion from a trauma recent admission for about 2 or 3 weeks for CHF [facility]
Plan:
Follows with Dr. Chacko in our office
cr seem to be stable at baseline
Azotemia is improving slowly, s/p crissy , interested in self cath at d/c per MIHIR
hyponatremia-high ADH mediated underlying CHF, U osmo high 320, U na 18
would dose again samsca today and cont TOrsemide
maintain FR 40-48ounces/day
echo noted EF 40-45% and no veg on YANI
resume Farxiga at d/c
BP soft on Midodrine
off abx per ID, fle contaminant bld cx
follow h/h-stable , fe def noted, likely benefit from IV fe infusion out pt
ok for d/c today
bmp in 3-5days
f/u cards and Dr Chacko
-
-
Date of Service: June 29, 2024
CC / HPI / ROS
-
Chief Complaint:
Acute on chronic kidney disease
History of Present Illness:
Presents with trauma to his toe worsening azotemia and bacteremia and urinary retention
ct better at 1.8,
BUN 111
sodium no change at 127
hb low at 7.9, plt low too
Review of Systems:
No chest pain shortness of breath nausea vomiting
feels well
wt stable
Labs
-
Labs:
WBC 6.5 10^3/uL (4.8-10.8) 06/29/24 05:09
RBC 2.74 10^6/uL (4.70-6.10) L 06/29/24 05:09
Hgb 7.9 g/dL (13.0-18.0) L 06/29/24 05:09
Hct 24.1 % (39.0-52.0) L 06/29/24 05:09
Plt Count 102 10^3/uL (130-400) L 06/29/24 05:09
Sodium 127 mmol/L (135-145) L 06/29/24 05:09
Potassium 3.9 mmol/L (3.5-5.1) 06/29/24 05:09
Chloride 91 mmol/L (98-107) L 06/29/24 05:09
Carbon Dioxide 25 mmol/L (22-30) 06/29/24 05:09
BUN 111 mg/dl (9-20) H* 06/29/24 05:09
Creatinine 1.8 mg/dL (0.7-1.3) H 06/29/24 05:09
eGFR 39.01 06/29/24 05:09
Glucose 111 mg/dl (70-99) H 06/29/24 05:09
Calcium 8.5 mg/dl (8.4-10.2) 06/29/24 05:09
Xma-I-Dqmbaalsdwo Pept 8290 pg/ml 06/25/24 17:01
Albumin 3.4 g/dl (3.5-5.0) L 06/29/24 05:09
Physical Exam
-
Vital Signs:
Vital Signs
Temp Pulse Resp BP Pulse Ox
97.8 F 83 18 98/53 98
06/29/24 13:33 06/29/24 13:33 06/29/24 13:33 06/29/24 13:33 06/29/24 13:33
Cardiovascular:: Regular rate and rhythm
Respiratory:: Bilateral: CTA (decreased)
Lung Excursion:: Normal
Abdomen:: Nontender and Soft
Extremity Edema:: +1: Bilateral:
Ocampo Catheter: Yes
--- NOTE | 2024-06-29 15:22 | PN.CDI ---
CDI
- -
CDI:
Physician Documentation Request
Admit Date: 06/25/24 22:55
Dear Doctor Anshul,
Clinical Indicators:
Patient admitted with venous stasis dermatitis.
06/28 [facility] RN Skin/Wound assessment: Gluteal Cleft Stage 2 Pressure Injury, POA
Treatment: silicone border foam dressing
Physician documentation of the type and location of wounds is required for compliant documentation. Based on the above clinical findings and your assessment, please provide the following in your progress note:
1. Location of the ulcer/wound, including laterality.
2. Type (etiology) of ulcer/wound:
- Pressure (decubitus) ulcer
- Other
3. If a pressure ulcer, please also include the stage* of the ulcer:
- Stage 1 - Skin intact, non-blanchable redness
- Stage 2 - Partial thickness loss of dermis, includes intact or open blister
- Stage 3 - Full thickness tissue not including bone, tendon or muscle
- Stage 4 - Full thickness tissue loss, including exposed bone, tendon or muscle
- Unstageable - Full thickness loss in which the base of the ulcer is covered by slough (yellow, martinez, frerer, green or brown) and/or eschar (martinez, brown or black) in the wound bed.
- Unable to determine
Use of terms such as suspected, likely, concern for, or probable (associated with a specific diagnosis that is being evaluated, monitored, or treated as if it exists) are acceptable and can be coded in the inpatient setting, when documented at the
time of discharge.
Thank you,
Ernestine Pena RN BSN
CDI Specialist
available via tiger text
Please use your independent medical judgment in providing your response.
*Source: National Pressure Ulcer Advisory Panel (NPUAP)
--- NOTE | 2024-06-29 15:50 | CM ---
Candelario Zurita has been referred to and accepted for [facility] for cath care and teaching. He is agreeable to services. Cath supplies will be ordered by [facility] after first visit.
Plan: Discharge to home with VN for cath care and teaching
[facility]
[2024-06-29 16:11] VITALS: BP 97/52
--- NOTE | 2024-06-29 17:30 | PTCARENOTE ---
[patient for discharge to home with woodward catheter instructed patient on catheter care and cleaning- switched to leg bag with verbal teaching and demo to patient and daughter- patient to follow up with urology.
== END 2024-06-29 17:02 | disposition home health service (06) | DRG 300 ==
LOC: 4 EAST ACU 22:55
PROVIDERS: Clinical Nurse Specialist Family Health; Emergency Medicine; Hospitalist; ADMITTING PHYSICIAN Internal Medicine; ATTENDING PHYSICIAN Student in an Organized Health Care Education/Training Program; CONSULT PHYSICIAN Internal Medicine Nephrology; CONSULT PHYSICIAN Specialist; CONSULT PHYSICIAN Student in an Organized Health Care Education/Training Program; EMERGENCY PHYSICIAN Emergency Medicine
PROC: B24BZZ4 Ultrasonography of Heart with Aorta, Transesophageal (ICD-10-PCS; 2024-06-29)
DX: I87.2 Venous insufficiency (chronic) (peripheral) (principal); E22.2 Syndrome of inappropriate secretion of antidiuretic hormone; E85.4 Organ-limited amyloidosis; I13.0 Hypertensive heart and chronic kidney disease with heart failure and stage 1 through stage 4 chronic kidney disease, or unspecified chronic kidney disease; N17.9 Acute kidney failure, unspecified; L97.429 Non-pressure chronic ulcer of left heel and midfoot with unspecified severity; I48.19 Other persistent atrial fibrillation; I43 Cardiomyopathy in diseases classified elsewhere; R78.81 Bacteremia; I48.92 Unspecified atrial flutter; L03.115 Cellulitis of right lower limb; L03.116 Cellulitis of left lower limb; Q21.12 Patent foramen ovale; I50.32 Chronic diastolic (congestive) heart failure; N18.32 Chronic kidney disease, stage 3b; I25.10 Atherosclerotic heart disease of native coronary artery without angina pectoris; R21 Rash and other nonspecific skin eruption; D63.1 Anemia in chronic kidney disease; N40.1 Benign prostatic hyperplasia with lower urinary tract symptoms; R33.8 Other retention of urine; I25.5 Ischemic cardiomyopathy; E78.5 Hyperlipidemia, unspecified; D53.9 Nutritional anemia, unspecified; J98.4 Other disorders of lung; R91.1 Solitary pulmonary nodule; G47.33 Obstructive sleep apnea (adult) (pediatric); I73.00 Raynaud's syndrome without gangrene; M10.9 Gout, unspecified; I27.29 Other secondary pulmonary hypertension; G57.93 Unspecified mononeuropathy of bilateral lower limbs; R26.2 Difficulty in walking, not elsewhere classified; N32.0 Bladder-neck obstruction; E87.6 Hypokalemia; I95.1 Orthostatic hypotension; B95.7 Other staphylococcus as the cause of diseases classified elsewhere; G47.00 Insomnia, unspecified; I08.1 Rheumatic disorders of both mitral and tricuspid valves; L89.152 Pressure ulcer of sacral region, stage 2; M19.90 Unspecified osteoarthritis, unspecified site; S91.312A Laceration without foreign body, left foot, initial encounter; W26.8XXA Contact with other sharp object(s), not elsewhere classified, initial encounter; Y93.01 Activity, walking, marching and hiking; Y92.009 Unspecified place in unspecified non-institutional (private) residence as the place of occurrence of the external cause; Z95.1 Presence of aortocoronary bypass graft; Z90.49 Acquired absence of other specified parts of digestive tract; I25.2 Old myocardial infarction; Z87.891 Personal history of nicotine dependence; Z79.82 Long term (current) use of aspirin; Z95.810 Presence of automatic (implantable) cardiac defibrillator
CPT/HCPCS: 51702; 51798; 71046; 80053; 80202; 81003; 81015; 82570; 82728; 83540; 83550; 83605; 83735; 83880; 83930; 83935; 84300; 85025; 85652; 86140; 87040; 87147; 87150; 87186; 87205; 93306; 93312; 93320; 93325; 93922; 93925; 96365; 96366; 96367; 97116; 97162; 97166; 97530; 99285

== ENCOUNTER → 2024-09-14 11:13 | Outpatient (REF) | payer OTHER, SELFPAY | LOC: RAD 11:13 | PROVIDERS: ATTENDING PHYSICIAN Internal Medicine Cardiovascular Disease; FAMILY PHYSICIAN Student in an Organized Health Care Education/Training Program | DX: I50.22 Chronic systolic (congestive) heart failure (principal) | CPT/HCPCS: 71046 ==

== ENCOUNTER 2024-09-17 09:14 | Day surgery (SDC) | payer OTHER, SELFPAY ==
[2024-09-17 09:56] VITALS: BMI 27.2
--- NOTE | 2024-09-17 12:04 | ITS.CL.CARDI ---
[facility] - Cardioversion
Cardioversion
Procedure Report:
Date of Procedure: 09/17/24.
Procedure: Cardioversion.
Indication: Symptomatic persistent atrial fibrillation.
Performing Physician: Teresa Adamson MD
Technique: The patient was brought to the holding area. Signed informed consent was obtained. A time out was called and performed. The patient was sedated by a member of the anesthesia service. Anticoagulation status was reviewed and was
appropriate. R-2 pads were placed anteriorly and posteriorly. YANI was performed and did not show any evidence of intracardiac thrombus.A 200 J synchronized biphasic shock followed by a 300 J synchronized biphasic shock restored normal sinus rhythm
without significant bradycardia. There were no complications. Wave - Private Location App interrogator use to assist in rhythm evaluation during procedure.
Conclusion: Uncomplicated cardioversion from atrial fibrillation to sinus rhythm with ventricular pacing.
Recommendation: Routine post cardioversion care. Continue fdc anticoagulation. Patient initiated on amiodarone 400 mg p.o. twice daily for the next 14 days then will drop to [address] Dr Triny Cadet at [facility]
== END 2024-09-17 11:59 | disposition home or self-care (01) ==
LOC: CATH 09:14
PROVIDERS: ATTENDING PHYSICIAN Internal Medicine Cardiovascular Disease; FAMILY PHYSICIAN Student in an Organized Health Care Education/Training Program
DX: I48.19 Other persistent atrial fibrillation (principal); Z79.01 Long term (current) use of anticoagulants; I08.3 Combined rheumatic disorders of mitral, aortic and tricuspid valves; Z79.82 Long term (current) use of aspirin; Z79.899 Other long term (current) drug therapy; I47.20 Ventricular tachycardia, unspecified; Z95.810 Presence of automatic (implantable) cardiac defibrillator; E85.82 Wild-type transthyretin-related (ATTR) amyloidosis; Z95.1 Presence of aortocoronary bypass graft; I12.9 Hypertensive chronic kidney disease with stage 1 through stage 4 chronic kidney disease, or unspecified chronic kidney disease; N18.30 Chronic kidney disease, stage 3 unspecified; I44.7 Left bundle-branch block, unspecified
CPT/HCPCS: 93312; 93320; 93325; 92960; 93005

== ENCOUNTER → 2024-10-05 10:02 | Outpatient (REF) | payer OTHER, SELFPAY | LOC: RAD 10:02 | PROVIDERS: ATTENDING PHYSICIAN Nurse Practitioner Gerontology; FAMILY PHYSICIAN Student in an Organized Health Care Education/Training Program; OTHER PHYSICIAN Internal Medicine Cardiovascular Disease | DX: I25.5 Ischemic cardiomyopathy (principal) | CPT/HCPCS: 71046 ==

== ENCOUNTER 2024-10-14 19:02 | Inpatient (IN) | payer OTHER, SELFPAY ==
[2024-10-14 14:31] VITALS: BP 100/66
[2024-10-14 15:08] VITALS: BP 97/73
[2024-10-14 15:10] VITALS: BMI 25.0
--- NOTE | 2024-10-14 16:03 | ED.GENMED ---
History of Present Illness
General
Chief Complaint: Abnormal Lab Value
Source: patient, records, spouse and family
Exam Limitations: none
Time Seen by Provider: 10/14/24 15:18
Nursing documentation reviewed up to this point in time: agreed with
History of Present Illness
History of Present Illness:
73-year-old male with history of hypertension, hyperlipidemia, CAD status post CABG, CHF, pacemaker, BPH with chronic Ocampo catheter who presents to the ER for evaluation of weakness and malaise, worsening renal function on outpatient labs. Of note
patient has history of CHF and sees Dr. Adamson for cardiology; he is on a 48 ounce daily fluid restriction and he takes torsemide 60 mg twice daily; he has also been on metolazone 5 mg�had been taking it daily but decreased to 5 mg 3 times a
week on 10/05/24 due to good response (patient stopped taking this medicine on Friday as he felt it was making him feel unwell). He says that over the past few days he has had increasing generalized weakness. He has had some nausea yesterday had a
few episodes of vomiting. He had outpatient lab work done which showed worsening renal function and he was referred to the ER. He denies any significant amount of cough or URI symptoms. Denies any chest pain, shortness of breath. He denies any
abdominal pain. He denies any diarrhea. He denies any other complaints.
Past History
Past History
ED Past Medical History: CAD, CHF and HTN
ED Past Surgical History: Cardiac (CABG), Cholecystectomy and Other (Hernia gallbladder)
Social History
Tobacco: Non-smoker
Alcohol: Former
Drug: None
Personal:
Living: with family
Employment: Retired
Family History
Family History: Hypertension
Review of Systems
Review of Systems
All Other Systems: ROS reviewed and negative except as documented in HPI and ROS
Constitutional: Reports fatigue; Denies fever
EENT: Denies sore throat
Respiratory: Denies cough or trouble breathing
Cardiac: Denies chest pain
ABD/GI: Reports nausea and vomiting; Denies abdominal pain or diarrhea
: Denies flank pain
Musculoskeletal: Denies neck pain or back pain
Neurological: Reports dizzy and weakness (Generalized)
Phy Exam
Physical Exam
Physical Exam:
General: Awake, alert, oriented x3; no acute distress
Head: Normocephalic, atraumatic
Eyes: Conjunctiva normal, EOMI, pupils equal round and reactive to light bilaterally
Throat: Airway intact, handling secretions
Neck: Trachea midline, no JVD
Lungs: Clear to auscultation bilaterally, no wheezing, rales, rhonchi
Heart: Regular rate and rhythm, no murmurs, gallops, or rubs appreciated
Abd: Soft, non distended, nontender
Neuro: No gross deficits
Extremities: Trace edema around the ankles; distal extremities are warm and well-perfused
Scores
Heart Failure Risk
Heart Failure Risk Score: Not Applicable
Heart Score for Chest Pain Patients
STEMI patient?: Not applicable
Withdrawal Assessment of Alcohol
Withdrawal Assessment Completed?: Not applicable
Course
Orders/Labs/Results
Orders:
Orders
10/14/24
COVID-19 Antigen Urgent
Source: Nasal Swab
10/14/24 14:38
EKG [Electrocardiogram (*1)] Urgent
Reason for Study: Vertigo / Dizzy
10/14/24 14:39
EKG- Treatment ONCE
10/14/24 15:20
Electrocardiogram (*1) Urgent
Reason for Study: QTc Monitoring
EKG- Treatment ONCE
0.9% Sodium Chloride 1000 ml [Nss] 1,000 ml IV BOLUS
10/14/24 15:57
CPK [Creatine Phosphokinase] Urgent
Complete Blood Count/With Diff Urgent
Comprehensive Metabolic Panel Urgent
Magnesium Urgent
10/14/24 16:02
0.9% Sodium Chloride 500 ml [Nss] 500 ml IV BOLUS
10/14/24 16:13
Interrogate Pacemaker- Treatment ONCE
10/14/24 16:19
Urinalysis Reflex To Culture Urgent
Date Specimen was Collected: 10/14/24
Time Specimen was Collected: 15:38
Urine Microscopic Reflex Cult Urgent
Influenza A+B Rapid Molecular Urgent
BERT Source: Nasal Swab
Specimen Description:
Urine Culture Urgent
BERT Source: U
Specimen Description:
Date Specimen was Collected: 10/14/24
Time Specimen was Collected: 15:38
10/14/24 16:27
Potassium Chloride [KCl] 40 meq 0.9% Sodium Chloride 250 ml [Nss] 250 ml IV NOW
10/14/24 16:49
Ocampo Placement- Treatment ONCE
Reason for insertion: Chronic Coampo on Admit
CefTRIAXone [Rocephin] 1,000 mg IV NOW STA
Abnormal Lab Results
10/14/24 10/14/24
15:57 16:19
WBC 4.5 L 10^3/uL
(4.8-10.8)
RBC 3.18 L 10^6/uL
(4.70-6.10)
Hgb 9.2 L g/dL
(13.0-18.0)
Hct 27.1 L %
(39.0-52.0)
RDW 17.6 H %
(11.5-14.5)
Plt Count 109 L 10^3/uL
(130-400)
Absolute Lymphs (auto) 0.5 L 10^3/uL
(1.2-3.4)
Neutrophils % 78.1 H %
(42.2-75.2)
Lymphocytes % 10.1 L %
(20.5-51.1)
Monocytes % 9.9 H %
(1.7-9.3)
Sodium 126 L mmol/L
(135-145)
Potassium 3.0 L mmol/L
(3.5-5.1)
Chloride 82 L mmol/L
(98-107)
BUN 163 H* mg/dl
(9-20)
Creatinine 3.6 H mg/dL
(0.7-1.3)
Glucose 118 H mg/dl
(70-99)
Magnesium 3.0 H mg/dl
(1.6-2.3)
AST 63 H U/L
(17-59)
Ur Occult Blood Reflex 4+ A
(Negative)
Leukocyte Esterase Rfl 3+ A
(Negative)
Urine RBC 60-70 A /HPF
(0-2)
Urine WBC (Reflex) 16-20 A /HPF
(0-5)
Urine Bacteria (Reflex) Moderate A
(Negative)
Urine Albumin (Reflex) 2+ A
(Neg - Trace)
10/14/24 15:57
10/14/24 15:57
Vital Signs
Initial and Last Documented VS:
Initial Vital Signs
Pulse Resp BP Pulse Ox
80 20 100/66 89
10/14/24 14:31 10/14/24 14:31 10/14/24 14:31 10/14/24 14:31
Last Documented Vital Signs
Pulse Resp BP Pulse Ox
80 20 100/66 89
10/14/24 14:31 10/14/24 14:31 10/14/24 14:31 10/14/24 14:31
MDM/Problems Addressed
Differential Diagnosis Includes:
Suspect symptoms related to uremia; could be secondary to dehydration in the setting of fluid restriction versus overdiuresis versus cardiorenal (less likely with patient not overtly volume overloaded)
MDM/Problems Addressed:
73-year-old male presents with malaise, nausea, dizziness and fatigue, worsening renal function on outpatient labs�symptoms occurring in the setting of recent adjustment of diuretic. Was volume overloaded and so in addition to torsemide 60 mg twice
daily he was started on metolazone 5 mg daily�dropped weight, metolazone was scaled back but patient began having symptoms as above. Soft blood pressure here, heart rate normal, rest of vitals acceptable. Will plan to place an IV check labs
including a CBC and a CMP. Check urinalysis. Swab for COVID and flu. Check EKG and interrogate device. Will provide some gentle fluids. IV potassium for hypokalemia. Plan for admission.
Labs reviewed: CBC shows stable pancytopenia. CMP shows acute renal injury with creatinine of 3.6, BUN of 163. Hypokalemia with potassium 3.0. Hyponatremia 126 chronic. UA abnormal in the setting of chronic catheter�will change catheter, cover
for UTI. IV potassium, IV fluids. Plan admit for continued management. Case discussed with hospitalist.
Chronic conditions affecting care:
CHF, CKD
*Pulse Oximetry
Patient hypoxic: no
*EKG
Interpreted by ED Provider?: Yes
Heart Rate: 80
Rhythm: av sequential
*Critical Care Note
Total Time (30-74mins, 75-104mins- exclusive of procedures): Not Applicable
Data Reviewed
Review of Other/Old Records Reveals: Labs and Records
Source: patient, records, spouse and family
Patient Management
Discussion with other providers: Hospitalist (Discussed with hospitalist)
Escalation/DeEscalation of care consider admission/obs:
Admission indicated
ED Attending Note
-
Portions of this chart may have been created with voice recognition software.� Occasional wrong word or��sound alike� substitutions may have occurred due to the inherent limitations of voice recognition software.
Discharge Plan
Departure
Patient Disposition: Admit
Date of Disposition: 10/14/24
Time of Disposition: 16:51
Admit to doctor: Anshul
Presentation/result/management discussed w/ accepting MD/DO: Hospitalist
Discharge Problem:
Renal insufficiency, Hypokalemia, Acute UTI
Prescriptions:
No Action
cholecalciferol (vitamin D3) [Vitamin D3] 25 mcg (1,000 unit) Capsule
25 mcg PO DAILY
midodrine 5 mg Tablet
5 mg PO TID@0600,1200,1700
potassium chloride 20 mEq Tablet,Er Particles/Crystals
40 meq PO DAILY
gabapentin 100 mg Capsule
100 mg PO TID
Vyndamax 61 mg Capsule
61 mg PO DAILY
torsemide 20 mg tablet
100 mg PO BID
atorvastatin 40 mg Tablet
40 mg PO DAILY
finasteride 5 mg Tablet
5 mg PO DAILY
Eliquis 5 mg Tablet
5 mg PO BID
amiodarone 200 mg tablet
200 mg PO DAILY Qty: 130 3RF
Rx Instructions:
400mg twice a day for 14 days, then 200mg daily thereafter
Interventions
Interventions:
*Risk Screen - Suicide Last Done: 10/14/24 14:31
*General Assessment Last Done: 10/14/24 14:31
*Neglect/Abuse Screening Last Done: 10/14/24 15:10
*ED COVID-19 Vaccine History Last Done: 10/14/24 14:31
Discharge Date and Time
Print Language: ITALIAN
[2024-10-14 16:05] LABS: % Basophils 0.2 % (0-2); % Eosinophils 1.3 % (0-6); % Immature Granulocytes 0.4 % (0-0.5); % Lymphocytes 10.1 % (20.5-51.1); % Monocytes 9.9 % (1.7-9.3); % Neutrophils 78.1 % (42.2-75.2); Absolute Eosinophils 0.1 10^3/uL (0-0.7); Absolute Lymphocytes 0.5 10^3/uL (1.2-3.4); Absolute Monocytes 0.4 10^3/uL (0.1-0.6); Absolute Neutrophils 3.5 10^3/uL (1.4-6.5); Hematocrit 27.1 % (39.0-52.0); Hemoglobin 9.2 g/dL (13.0-18.0); Mean Corp Hgb Conc. 33.9 g/dL (33.0-37.0); Mean Corpuscular Hgb 28.9 pg (27.0-31.0); Mean Corpuscular Volume 85.2 fL (80.0-94.0); Mean Platelet Volume 9.8 fL (7.4-10.4); Nucleated Red Blood Cells % 0 % (-); Platelet Count 109 10^3/uL (130-400); Red Blood Cell Count 3.18 10^6/uL (4.70-6.10); Red Cell Dist. Width 17.6 % (11.5-14.5); White Blood Cell Count 4.5 10^3/uL (4.8-10.8)
[2024-10-14] MEDS: NSS 500 IV (16:13)
[2024-10-14 16:27] VITALS: BP 98/72
[2024-10-14 16:34] LABS: Urine Albumin 2+ (Neg - Trace); Urine Bilirubin Negative (Negative); Urine Character Slightly Cloudy (Clear); Urine Color Yellow; Urine Glucose Negative (Negative); Urine Ketone Negative (Negative); Urine Leukocyte 3+ (Negative); Urine Nitrite Negative (Negative); Urine Occult Blood 4+ (Negative); Urine Urobilinogen Negative (Neg - 1+)
[2024-10-14 16:42] LABS: Urine Bacteria Moderate (Negative); Urine Red Blood Cell 60-70 /HPF (0-2); Urine Squamous Cell 0-2 /LPF (Few)
[2024-10-14 16:43] LABS: Urine White Cell 16-20 /HPF (0-5)
[2024-10-14 16:47] LABS: ALT (SGPT) 39 U/L (0-50); AST (SGOT) 63 U/L (17-59); Albumin 4.7 g/dl (3.5-5.0); Alkaline Phosphatase 105 U/L (38-126); Blood Urea Nitrogen 163 mg/dl (9-20); Calcium 9.2 mg/dl (8.4-10.2); Carbon Dioxide 27 mmol/L (22-30); Chloride 82 mmol/L (98-107); Creatine Phosphokinase 84 U/L (55-170); Estimated Creatinine Clearance 19 ml/min; Glucose 118 mg/dl (70-99); Sodium 126 mmol/L (135-145); Total Bilirubin 1.3 mg/dl (0.2-1.3); Total Protein 7.7 g/dl (6.3-8.2); eGFR 16.98
[2024-10-14] MEDS: KCL 270 MEQ IV (16:52)
[2024-10-14] MEDS: ROCEPHIN 1000 MG IV (16:57)
[2024-10-14 17:00] VITALS: BP 93/71
[2024-10-14 17:06] LABS: COVID-19 Antigen Negative (Negative)
--- NOTE | 2024-10-14 17:28 | HPS.HSE ---
Family Physician
-
Family Physician: Yojana Clark MD
Chief Complaint
-
weakness, worsening renal function outpatient labs
History of Present Illness
Mr. 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
chronic woodward catheter presents to the ER for weakness and outpatient labs showing worsening renal function.
Patient is prescribed Torsemide 60mg PO BID. He was taking Metolazone every other day and then stopped on Friday stating it was making him feel weak and dizzy. Per , the Metolazone works very well but then dries him out. He has a chronic
woodward and continues to make urine. No headache or fever. No chest pain or shortness of breath. + nausea and several episodes of vomiting. No diarrhea. He is eating and drinking okay. No LE swelling.
At baseline patient walks short distances with a walker or uses a wheelchair.
Medical History
Past Medical History
Past Medical History: Reports Other
Additional Past Medical History:
CKD stage IIIb
ischemic cardiomyopathy EF 50-55% September 2023
chronic diastolic heart failure
chronic bilateral leg edema
orthostatic hypotension
HTN�benign
CAD/ND/CABG x 3 vessel 2021
chronic anemia, chronic macrocytic anemia
HLD
PAF off anticoagulation due to unable to afford Eliquis
history of right retinal eye hemorrhage 2022,
LBBB,
bradycardia
restrictive lung disease
former smoker
pulmonary nodule
recurrent pleural effusions requiring thoracentesis
obstructive sleep apnea status post uvulectomy
remote history hepatitis
Raynaud's disease
gout
insomnia
osteoarthritis
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
Past Surgical History: Reports Other
Additional Past Surgical History:
CAD/ND/CABG x 3 vessel 2021
Knee replacement
Hernia repair x 2
Cholecystectomy
Social History
Tobacco: Former Smoker (As teen)
Alcohol: Former (Quit 28 years ago)
Drug: None
Personal:
Living: With Family ( Robert)
Employment: Retired
Family History
Family History: Not pertinent
Allergies / Home Medications
Allergies reflects when Allergies were last updated in [facility].
Home Medications with original date entered in [facility]
Allergy/Medication List:
Allergies
Allergy/AdvReac Type Severity Reaction Status Date / Time
No Known Allergies Allergy Verified 10/14/24 14:36
Home Medications
cholecalciferol (vitamin D3) 25 mcg (1,000 unit) capsule (Vitamin D3) 25 mcg PO DAILY Supplement 03/18/22
midodrine 5 mg tablet 10 mg PO TID@0600,1200,1700 HYPOTENSION 05/12/24
gabapentin 100 mg capsule 100 mg PO TID NEUROPATHY 06/25/24
potassium chloride 20 mEq tablet,extended release(part/cryst) 40 meq PO DAILY Electrolyte Repletion 06/25/24
torsemide 20 mg tablet 60 mg PO BID Heart Failure 06/25/24
amiodarone 200 mg tablet 200 mg PO DAILY #130 tabs 09/17/24
apixaban 5 mg tablet (Eliquis) 5 mg PO BID 09/17/24
atorvastatin 40 mg tablet 40 mg PO DAILY 09/17/24
finasteride 5 mg tablet 5 mg PO DAILY 09/17/24
acetaminophen 325 mg tablet (Tylenol) 650 mg PO Q6HPRN PRN mild pain 10/14/24
polyethylene glycol 3350 17 gram oral powder packet (Miralax) 17 g PO Q48H 10/14/24
tafamidis meglumine 20 mg capsule (Vyndaqel) 80 mg PO DAILY 10/14/24
Review of Systems
-
History Source: Patient
A 12 point ROS was completed and negative except as noted: Yes
Physical Exam
Vital Signs
Vital Signs
Pulse Resp BP Pulse Ox
80 15 98/72 97
10/14/24 16:45 10/14/24 16:45 10/14/24 16:27 10/14/24 16:45
Physical Exam
General: No Apparent Distress and Conversant
HEENT: PERRLA
Respiratory: Clear; No Wheezes
Cardiac: S1/S2 and Regular Rhythm; No JVD
GI: Soft and Non Tender
Genito-urinary: Woodward
Musculoskeletal: No Edema
Skin: Warm and Dry; No Rash
Neuro: AO x 3
Psych: Calm
Laboratory Results
-
10/14/24 15:57
10/14/24 15:57
Laboratory Results
Total Bilirubin 1.3 mg/dl (0.2-1.3) 10/14/24 15:57
AST 63 U/L (17-59) H 10/14/24 15:57
ALT 39 U/L (0-50) 10/14/24 15:57
Alkaline Phosphatase 105 U/L (38-126) 10/14/24 15:57
Data Reviewed
-
Diagnostic Radiology: Report Reviewed by me
Lab Data: Labs Reviewed by me
Impression/Plan
-
Mr. 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
chronic woodward catheter presents to the ER for weakness and outpatient labs showing worsening renal function.
Triage VS: P 80, RR 20, BP 100/66, SpO2 89%
LABS: WBC 4.5, Hg 9.2, PLT 109, Na 126, K+ 3.0, BUN 163, Cr 3.6, Glucose 118, Mag 3, T. Bili 1.3, AST 63, ALT 39, Alk Phos 105
UA with 60-70 RBC, 16-20 WBC
MAR: potassium 40 IV, IV Ceftriaxone, normal saline 500cc
Acute Renal Failure with Cr 3.6, BUN 163
Heart Failure with Recovered EF
Malaise
-admit to telemetry
-s/p 500cc NS in ER, will continue NS @ 60 overnight
-hold HELPER SHEAR OPERATOR Torsemide, Metolazone
-daily weights
-Nephrology and Cardiology consult
Hypokalemia
-s/p 40mEq IV in ER, will recheck later this evening
Amyloid Cardiomyopathy - HELPER SHEAR OPERATOR Tafamidis
Atrial Fibrillation s/p recent cardioversion
-currently in sinus
-HELPER SHEAR OPERATOR Eliquis (confirmed dosing with Cardiology in setting of renal failure)
-HELPER SHEAR OPERATOR Amiodarone
HLD - HELPER SHEAR OPERATOR Statin
BPH
Chronic Urinary Retention with Woodward
-HELPER SHEAR OPERATOR Finasteride
-woodward ordered to be exchanged in the ER
-culture pending, hold off on further antibiotics for now
Neuropathy
-hold HELPER SHEAR OPERATOR Gabapentin for now in setting of renal failure
-consider resuming 100 daily
Orthostatic Hypotension - HELPER SHEAR OPERATOR Midodrine
DVT PPx: HELPER SHEAR OPERATOR Eliquis
DNR - confirmed with at bedside on admission. states he is enrolled in palliative care with [facility]
76 minutes spent on patient care
[2024-10-14 18:00] VITALS: BP 97/71
[2024-10-14 18:04] LABS: Osmolality Urine 323 mOsm/kg (300-900)
[2024-10-14 18:21] LABS: Urine Sodium 48 mmol/L (30-90)
[2024-10-14] MEDS: NSS 1000 IV (19:41)
[2024-10-14 21:09] VITALS: BMI 25.0
[2024-10-14 21:10] VITALS: BP 97/65
[2024-10-14 21:11] VITALS: BMI 25.9
--- NOTE | 2024-10-14 21:15 | PTCARENOTE ---
Received patient from ED via stretcher. Pt AAOX3. Pox: 97% RA. A/V paced on phototypesetting equipment monitor. IVFs infusing without difficulty. Call shi within reach. Plan of care ongoing.
--- NOTE | 2024-10-14 21:15 | PTCARENOTE ---
Addendum entered by Gemma Arroyo RN 10/14/24 21:16:
primary nurse notified to have code status changed.
Original Note:
Upon admission questions patient states that he 'wants to live longer' and doesn't want to be a DNR.
[2024-10-14] MEDS: ELIQUIS 5 MG PO (21:39)
--- NOTE | 2024-10-14 21:52 | W.PN.UPDATE ---
Update Note
Progress Note Update
Asked by RN to change patient's code status to full code, RN stated patient said 'I want to live and be full code'. At bedside, spoke with patient who stated that he does not want to be Full code and wants to be DNR. Reviewed what DNR status means,
no CPR if heart were to stop and no intubation if he could not breath on his own. Patient in full agreement with DNR status.
Due to multiple mixed conversations with patient regarding DNR status, I called and spoke to , Cori Zurita, who confirmed that her , Candelario Zurita's code status should be DNR. Code status DNR as ordered.
[2024-10-15] VITALS (8 sets, daily range): BP systolic 85–105; BP diastolic 55–69; BMI 25.9
[2024-10-15 00:55] LABS: Calcium 8.8 mg/dl (8.4-10.2); Carbon Dioxide 25 mmol/L (22-30); Chloride 87 mmol/L (98-107); Estimated Creatinine Clearance 19 ml/min; Glucose 127 mg/dl (70-99); Potassium 3.2 mmol/L (3.5-5.1); Sodium 127 mmol/L (135-145); eGFR 18.19
[2024-10-15 01:15] LABS: Blood Urea Nitrogen 159 mg/dl (9-20)
[2024-10-15] MEDS: KCL 20 MEQ PO ×2 (04:13→12:54)
[2024-10-15] MEDS: ProAmatine 10 MG PO ×3 (04:13→18:03)
[2024-10-15 08:29] LABS: Hematocrit 26.7 % (39.0-52.0); Hemoglobin 8.8 g/dL (13.0-18.0); Mean Corpuscular Hgb 28.5 pg (27.0-31.0); Mean Corpuscular Volume 86.4 fL (80.0-94.0); Mean Platelet Volume 10.2 fL (7.4-10.4); Platelet Count 128 10^3/uL (130-400); Red Blood Cell Count 3.09 10^6/uL (4.70-6.10); Red Cell Dist. Width 17.8 % (11.5-14.5); White Blood Cell Count 5.5 10^3/uL (4.8-10.8)
--- NOTE | 2024-10-15 08:48 | CON.CAR ---
Addendum entered and electronically signed by Aguila Adamson MD 10/15/24 11:41:
I saw and examined the patient.
The POWDER LINE REPAIRER's note was reviewed and I agree with the note.
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 Cadet at [facility], [employer] ([employer]
followed at [facility]), NSVT, recurrent right pleural effusion, CKD 3b, CAD status post CABG x3 in 2021 wtih DUANE ligation, HTN, dyslipidemia, LBBB, bradycardia, lymphedema, moderate mitral regurgitation, urinary retention with recurrent UTI now with
indwelling catheter, who has been struggling with Volume Overload as an outpatient necessitating up titration of diuretics with eventual addition of metolazone to mobilize fluid. Unfortunately, now we are seeing the flip side of this with
overdiuresis and acute renal failure. He also had a pleural effusion we were monitoring. All along, we also were struggling with new atrial fibrillation. He failed cardioversion but had a successful chemical cardioversion with amiodarone. He is
quite fatigues but breathing and LE edema is improved. ON exam he is lying flat in the bed. His lungs sound CTA b/l, rrr no mrg no le edema. Will await renal recs for BARBARA. Will continue Tifamidis--no renal adjustment needed. Will continue Eliquis
and amiodarone. Will update a CXR as lungs now sound clear.
Original Note:
Consultation
Consultation Request
Date/Time Consultation Requested: 10/14/24 8:45p
Date/Time Consultation Performed: 10/15/24 8:30a
Requesting Provider: Dr. Landers
Performing Provider: JAMAL Kovacs for Dr. Adamson
Reason for Consultation: HFmrEF
Medical History
-
Chief Complaint: malaise/weakness, abnormal outpatient labs
History of Present Illness:
Mr. 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 Cadet at [facility], [employer] ([employer] followed at [facility]), NSVT, recurrent right pleural effusion, CKD 3b, CAD status post CABG x3 in 2021 wtih DUANE ligation, HTN, dyslipidemia, LBBB, bradycardia, lymphedema, moderate mitral regurgitation, urinary retention with recurrent UTI
now with indwelling catheter, who presents to the ER with c/o fatigue/malaise/weakness and abnormal outpatient labs. He has been on Torsemide 60mg BID and Metolazone 5mg daily which caused creatinine to rise to 2.6 on 10/01/24. At office visit
10/05/24, Metolazone was reduced to 5mg Friday, Friday, Friday and his weight was stable at 175 lbs at home. He called the office 10/11/24 c/o significant weakness/fatigue and he stopped Metolazone. Outpatient labs 10/13/24 with creatinine 3.6 and
potassium 2.8, he was referred to the ER for treatment. He has been on Amiodarone loading 400mg BID for 2 weeks then 200mg daily since YANI/DCCV 09/17/24. His device alerted of recurrent Afib episode starting 09/27/24 through 10/02/24 when he went
into NSR. Device interrogation 10/08/24 confirmed NSR since 10/02/24. He is on Eliquis w/o bleeding issues or missed doses.
Past Medical History
Past Medical History: Other (as above)
Past Surgical History: Cardiac (TAVR 02/2020), Urological (vasectomy) and Other (left cataract)
Social History
Tobacco: Non-Smoker
Alcohol: None
Personal:
Living: With Family
Employment: Retired
Family History
Family History: Reviewed & Not Pertinent
Allergies / Home Medications
Allergy/AdvReac Type Severity Reaction Status Date / Time
No Known Allergies Allergy Verified 10/14/24 14:36
�Medication �Instructions �Recorded �Confirmed �Type
cholecalciferol (vitamin D3) 25 25 mcg PO DAILY Supplement 03/18/22 10/14/24 History
mcg (1,000 unit) capsule (Vitamin
D3)
midodrine 5 mg tablet 10 mg PO TID@0600,1200,1700 05/12/24 10/14/24 History
HYPOTENSION
gabapentin 100 mg capsule 100 mg PO TID NEUROPATHY 06/25/24 10/14/24 History
potassium chloride 20 mEq 40 meq PO DAILY Electrolyte 06/25/24 10/14/24 History
tablet,extended release(part/cryst) Repletion
torsemide 20 mg tablet 60 mg PO BID Heart Failure 06/25/24 10/14/24 History
amiodarone 200 mg tablet 200 mg PO DAILY #130 tabs 09/17/24 10/14/24 Rx
apixaban 5 mg tablet (Eliquis) 5 mg PO BID 09/17/24 10/14/24 History
atorvastatin 40 mg tablet 40 mg PO DAILY 09/17/24 10/14/24 History
finasteride 5 mg tablet 5 mg PO DAILY 09/17/24 10/14/24 History
acetaminophen 325 mg tablet 650 mg PO Q6HPRN PRN mild pain 10/14/24 10/14/24 History
(Tylenol)
polyethylene glycol 3350 17 gram 17 g PO Q48H 10/14/24 10/14/24 History
oral powder packet (Miralax)
tafamidis meglumine 20 mg capsule 80 mg PO DAILY 10/14/24 10/14/24 History
(Vyndaqel)
Review of Systems
-
History Source: Patient
All other systems: Negative unless noted
Physical Exam
Vital Signs
Temp Pulse Resp BP Pulse Ox
97.2 F 104 18 97/65 99
10/15/24 07:05 10/15/24 07:05 10/15/24 07:05 10/15/24 07:05 10/15/24 07:05
Lab Results
10/15/24 08:02
Physical Exam
General: Other (fatigued)
HEENT: Normocephalic
Respiratory: Non Labored Respirations (diminished right middle and base)
Cardiac: S1/S2, Regular Rhythm and Peripheral Edema (trace b/l LE)
Breast: Deferred by me
GI: Soft, Non Tender and Normal Bowel Sounds
Rectal: Deferred by Provider
Genito-urinary: No Costovertebral Tender
Musculoskeletal: No Clubbing and No Cyanosis
Skin: Warm and Dry
Neuro: AO x 3
Hematologic/Lymphatic: No Lymphadenopathy
Psych: Calm
Impression / Plan
-
BARBARA - acute on chronic.
- Nephrology following.
- holding diuretics for now, monitor daily weights and follow BMP.
- renal ultrasound.
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
- holding diuretics for BARBARA as above.
- monitor daily weights, I&Os.
- weight 175 lbs at home.
- follows with Dr. Cadet at [facility] for ATTR and HF.
Amyloidosis - chronic.
- followed by Dr. Cadet at [facility].
- on Tafamidis.
CAD - stable w/o angina.
- s/p CABG x 3 in 2021.
- continue medical therapy.
Afib - paroxysmal.
- s/p PVI 01/20/2023, YANI/DCCV 09/17/24 with Amiodarone loading (400mg BID x 2 weeks then 200mg daily since 09/17/24).
- had a prolonged episode of Afib 09/27-10/02, and converted to NSR 10/02/24.
- Eliquis 5mg bid, continue.
BiV ICD - [employer], stable with normal function.
- no discharges.
- followed in our device clinic and at [facility].
Data Reviewed
-
EKG: Tracing Personally Visualized and interpreted (AV paced 80 bpm)
Radiology: Image Personally Visualized and interpreted
Medical Tests (Nuc Med, Echo etc): Report Reviewed by me (echo )
Labs: Labs Reviewed by me
Old Records: Reviewed
[2024-10-15 09:05] LABS: Calcium 9.1 mg/dl (8.4-10.2); Carbon Dioxide 22 mmol/L (22-30); Chloride 87 mmol/L (98-107); Estimated Creatinine Clearance 19 ml/min; Glucose 145 mg/dl (70-99); Magnesium 2.8 mg/dl (1.6-2.3); Potassium 3.3 mmol/L (3.5-5.1); Sodium 130 mmol/L (135-145); eGFR 17.56
[2024-10-15 09:21] LABS: Blood Urea Nitrogen 155 mg/dl (9-20)
[2024-10-15] MEDS: PROSCAR 5 MG PO (10:00)
[2024-10-15] MEDS: LIPITOR 40 MG PO (10:00)
[2024-10-15] MEDS: ELIQUIS 5 MG PO ×2 (10:00→20:41)
[2024-10-15] MEDS: MIRALAX 17 GRAMS PO (10:01)
[2024-10-15] MEDS: PACERONE 200 MG PO (10:01)
--- NOTE | 2024-10-15 10:45 | W.PN.HOSP.TC ---
Today's Communication/Plan
-
see outlined plan below
Assessment / Plan
Assessment / Plan
Assessment:
BARBARA on CKD stage 3b
- holding diuretics
- IVF
- monitor labs
- Nephrology consult
- renal US
Hypokalemia
- replete as indicated
Chronic HFmrEF
- holding diuretics as above
- monitor I/Os, weights, lytes
- CBC cards following
Hx of chronic amyloidosis with amyloid cardiomyopathy
- on Tafamidis 80mg daily (20mg x 4 tablets) - confirmed with pharmacy
Generalized malaise and weakness
- PT/OT
parox atrial Fibrillation s/p recent cardioversion
- currently in sinus
- EMPLOYEE RELATIONS DIRECTOR Eliquis (confirmed dosing with Cardiology in setting of renal failure)
- EMPLOYEE RELATIONS DIRECTOR Amiodarone
HLD - EMPLOYEE RELATIONS DIRECTOR Statin
BPH
Chronic Urinary Retention with Woodward
- EMPLOYEE RELATIONS DIRECTOR Finasteride
- woodward was exchanged in ER
- abnormal UA, culture pending, hold off on further antibiotics for now
Neuropathy
- hold EMPLOYEE RELATIONS DIRECTOR Gabapentin for now in setting of renal failure
- consider resuming 100 daily
Orthostatic Hypotension - EMPLOYEE RELATIONS DIRECTOR Midodrine
DVT ppx: Eliquis
code: DNR/DNI confirmed with family
Anticipated Discharge: > 48 hours
Subjective/Interval History
-
Date of Service: October 15, 2024
denies any new complaints
feels much improved, less weak
denies sob or cp
Objective Data
-
Labs:
Laboratory Results
10/15/24 10/15/24
00:15 08:02
WBC 5.5
Hgb 8.8 L
Hct 26.7 L
Plt Count 128 L
Sodium 127 L 130 L
Potassium 3.2 L 3.3 L
Chloride 87 L 87 L
Carbon Dioxide 25 22
BUN 159 H* 155 H*
Creatinine 3.4 H 3.5 H
Glucose 127 H 145 H
Calcium 8.8 9.1
Vital Signs:
Vital Signs
Temp Pulse Resp BP Pulse Ox
97.2 F 104 18 97/65 99
10/15/24 07:05 10/15/24 10:01 10/15/24 07:05 10/15/24 10:01 10/15/24 09:56
I&O
10/14/24 10/15/24 10/16/24
06:59 06:59 06:59
Intake Total 960 / 960
Output Total 800 / 800
Balance 160 / 160
Physical Exam
-
General: No Apparent Distress
HEENT: Normocephalic and Atraumatic
Respiratory: Negative Wheezes
Cardiac: Regular Rhythm and S1/S2
GI: Soft and Nontender
Genito-urinary: No Costovertebral Tender and Woodward
Neuro: AO x 3
Hematologic / Lymphatic: No Lymphadenopathy
Psych: Calm
Data Reviewed
-
Total Time Spent with Patient (in minutes): 45
Labs: Labs Reviewed by me
--- NOTE | 2024-10-15 12:20 | W.CON.NEPH ---
Consultation
-
Date/Time Consultation Requested: 10/15/2024 8 AM
Date/Time Consultation Performed: 10/15/2024 12 PM
Requesting Provider: Dr. Landers
Performing Provider: Dr. Narvaez
Reason for Consultation: BARBARA
Medical History
-
Chief Complaint: Acute on chronic kidney disease
History of Present Illness:
This is a 73-year-old gentleman who follows with Dr. Chacko in our office. He has heart failure with preserved ejection fraction on chronic diuretic therapy. He also has chronic hypotension on [id number] midodrine with stable blood
pressures. He is on Eliquis for atrial fibrillation status post ablation and cardioversion. He has been having a difficult time with overall volume management and his diuretic therapy has been adjusted by cardiology both at [place] and at [place].
Recently he had had increased weight and was started on torsemide 5 mg every other day. This was supposed be reduced to 3 times weekly. However he does note that metolazone does work quite well with increased diuresis but also makes him feel
quite lightheaded and dizzy within hours after taking the dose. He then would skip doses as result of this. His became concerned recently as he started having nausea and vomiting and felt that he was dried out. He was brought to emergency
room where he was noted to have a creatinine of 3.6 with a BUN of 163. Sodium and potassium were also quite low. His diuretics were held at this time.
Past Medical History
CKD stage IIIb
Cardiac amyloid
ischemic cardiomyopathy EF 50-55% September 2023
chronic diastolic heart failure
chronic bilateral leg edema
orthostatic hypotension
HTN�benign
CAD/NV/CABG x 3 vessel 2021
chronic anemia, chronic macrocytic anemia
HLD
PAF off anticoagulation due to unable to afford Eliquis
history of right retinal eye hemorrhage 2022,
LBBB,
bradycardia
restrictive lung disease
former smoker
pulmonary nodule
recurrent pleural effusions requiring thoracentesis
obstructive sleep apnea status post uvulectomy
remote history hepatitis
Raynaud's disease
gout
insomnia
osteoarthritis
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
Past Surgical History: Reports Other
Additional Past Surgical History:
CAD/NV/CABG x 3 vessel 2021
Knee replacement
Hernia repair x 2
Cholecystectomy
Social History
Former alcohol and tobacco use
Family History
no history of renal disease
Allergies / Home Medications
Allergy/AdvReac Type Severity Reaction Status Date / Time
No Known Allergies Allergy Verified 10/14/24 14:36
�Medication �Instructions �Recorded �Confirmed �Type
cholecalciferol (vitamin D3) 25 25 mcg PO DAILY Supplement 03/18/22 10/14/24 History
mcg (1,000 unit) capsule (Vitamin
D3)
midodrine 5 mg tablet 10 mg PO TID@0600,1200,1700 05/12/24 10/14/24 History
HYPOTENSION
gabapentin 100 mg capsule 100 mg PO TID NEUROPATHY 06/25/24 10/14/24 History
potassium chloride 20 mEq 40 meq PO DAILY Electrolyte 06/25/24 10/14/24 History
tablet,extended release(part/cryst) Repletion
torsemide 20 mg tablet 60 mg PO BID Heart Failure 06/25/24 10/14/24 History
amiodarone 200 mg tablet 200 mg PO DAILY #130 tabs 09/17/24 10/14/24 Rx
apixaban 5 mg tablet (Eliquis) 5 mg PO BID 09/17/24 10/14/24 History
atorvastatin 40 mg tablet 40 mg PO DAILY 09/17/24 10/14/24 History
finasteride 5 mg tablet 5 mg PO DAILY 09/17/24 10/14/24 History
acetaminophen 325 mg tablet 650 mg PO Q6HPRN PRN mild pain 10/14/24 10/14/24 History
(Tylenol)
polyethylene glycol 3350 17 gram 17 g PO Q48H 10/14/24 10/14/24 History
oral powder packet (Miralax)
tafamidis meglumine 20 mg capsule 80 mg PO DAILY 10/14/24 10/15/24 History
(Vyndaqel)
Review of Systems
-
No chest pain or shortness of breath. No more dizziness
All other systems: Negative unless noted
Physical Exam
Vital Signs
Vital Signs
Temp Pulse Resp BP Pulse Ox
96.7 F L 105 18 95/65 99
10/15/24 11:21 10/15/24 11:21 10/15/24 11:21 10/15/24 11:21 10/15/24 11:21
Lab Results
WBC 5.5 10^3/uL (4.8-10.8) 10/15/24 08:02
RBC 3.09 10^6/uL (4.70-6.10) L 10/15/24 08:02
Hgb 8.8 g/dL (13.0-18.0) L 10/15/24 08:02
Hct 26.7 % (39.0-52.0) L 10/15/24 08:02
Plt Count 128 10^3/uL (130-400) L 10/15/24 08:02
Sodium 130 mmol/L (135-145) L 10/15/24 08:02
Potassium 3.3 mmol/L (3.5-5.1) L 10/15/24 08:02
Chloride 87 mmol/L (98-107) L 10/15/24 08:02
Carbon Dioxide 22 mmol/L (22-30) 10/15/24 08:02
BUN 155 mg/dl (9-20) H* 10/15/24 08:02
Creatinine 3.5 mg/dL (0.7-1.3) H 10/15/24 08:02
eGFR 17.56 10/15/24 08:02
Glucose 145 mg/dl (70-99) H 10/15/24 08:02
Calcium 9.1 mg/dl (8.4-10.2) 10/15/24 08:02
Albumin 4.7 g/dl (3.5-5.0) 10/14/24 15:57
Laboratory Tests
06/29/24
05:09
Creatinine 1.8 H
Physical Exam
Patient is awake alert oriented and in no distress. Mood and affect were pleasant, insight and judgment were good. Pupils are equal round and reactive to light, extraocular movements are intact, sclera were anicteric. Hearing was normal, ears and
nose are intact. Oropharynx was clear. Neck was supple with trachea midline and no thyromegaly. Heart was regular rate and rhythm without rubs. Lower extremities with 1+ edema. Lungs were clear to auscultation bilaterally and with normal
excursion. Abdomen was soft, nontender, with normal active bowel sounds, and no hepatosplenomegaly. Skin was without rash and with normal turgor.
Data Reviewed
-
Radiology: Image Personally Visualized and interpreted (Chest x-ray on 10/05/2024 by my reading shows right pleural effusion)
Ultrasound: Report Reviewed by me (Renal ultrasound October 14, 2024, right kidney 10.8 cm, left kidney 8.1 cm no hydronephrosis)
Medical Tests (Nuc Med, Echo etc): Image Personally Visualized and interpreted (EKG on 10/14/2024 by my reading shows AV paced)
Labs: Labs Reviewed by me
Old Records: Reviewed
Assessment/Plan
-
IMP:
BARBARA
CKD 3b
Hypotension on midodrine
Atrial fibrillation pacemaker
Lower extremity erythema
Anemia of chronic disease
Hyponatremia
Hypokalemia
Cardiac amyloid
Urinary retention chronic Ocampo
Plan:
Holding diuretics for now.
Will consider restarting torsemide in the next 24 hours if creatinine begins to improve
Follow weights
I suspect he will ultimately require low-dose metolazone (1.25 or 2.5)more frequently in order to avoid hypotension from the 5 mg dose
Alternatively higher doses of torsemide may also be used as needed
In either scenario it would be trial and error that the patient would need to go through to figure out optimal dosing
Discussed with daughter
[2024-10-15] MEDS: NON-FORMULARY ITEM 80 MG PO (12:55)
--- NOTE | 2024-10-15 14:18 | PN.CDI ---
CDI
- -
CDI:
Physician Documentation Request
Admit Date: 10/14/24 19:02
Dear Doctor Alex,
Patient admitted with BARBARA.
10/14 Nursing skin assessment, 'Stage 2 sacral pressure injury POA.'
Physician documentation of the type and location of wounds is required for compliant documentation. Based on the above clinical findings and your assessment, please provide the following in your progress note:
Type (etiology) of ulcer/wound:
- Pressure (decubitus) ulcer
- Other
- Unable to determine
For a pressure ulcer, please also include the stage* of the ulcer:
- Stage 1 - Skin intact, non-blanchable redness
- Stage 2 - Partial thickness loss of dermis, includes intact or open blister
- Stage 3 - Full thickness tissue not including bone, tendon or muscle
- Stage 4 - Full thickness tissue loss, including exposed bone, tendon or muscle
- Unstageable - Full thickness loss in which the base of the ulcer is covered by slough (yellow, martinez, ferrer, green or brown) and/or eschar (martinez, brown or black) in the wound bed.
- Unable to determine
Use of terms such as suspected, likely, concern for, or probable (associated with a specific diagnosis that is being evaluated, monitored, or treated as if it exists) are acceptable and can be coded in the inpatient setting, when documented at the
time of discharge.
Thank you,
Ivy OG.,RN,CCDS
CDI Specialist
Available via tiger text
Please use your independent medical judgment in providing your response.
*Source: National Pressure Ulcer Advisory Panel (NPUAP)
--- NOTE | 2024-10-15 14:25 | PN.CDI ---
CDI
- -
CDI:
Physician Documentation Request
Admit Date: 10/14/24 19:02
Dear Doctor Alex,
Patient admitted with BARBARA.
Na levels documented below:
Patient received IV NSS.
Laboratory Tests
10/14/24 10/15/24 10/15/24
15:57 00:15 08:02
Sodium 126 L 127 L 130 L
Based on the above, please clarify in the progress notes, the appropriate diagnosis, if significant, that supports the above abnormalities and additional evaluation, monitoring and/or treatment rendered:
Hyponatremia
Insignificant abnormal lab finding
Other
Use of terms such as suspected, likely, concern for, or probable (associated with a specific diagnosis that is being evaluated, monitored, or treated as if it exists) are acceptable and can be coded in the inpatient setting, when documented at the
time of discharge.
Thank you,
Ivy OG,RN,CCDS
CDI Specialist
Available via [employer] text
Please use your independent medical judgment in providing your response.
--- NOTE | 2024-10-15 16:13 | CM ---
Patient seen at bedside with daughter present. Patient lives with in a one story home with 3 steps to enter and 1 step to kitchen. Patient has a walker, cane and recently returned CPAP. Patient would like to go to SNF when medically
appropriate. CM will continue to follow for discharge planning needs.
Plan; [facility] vs SNF pending medical treatment plan; would benefit from PT/OT assessment
--- NOTE | 2024-10-15 16:29 | PTCARENOTE ---
Pt AAO x3, العلي; OOB in chair/ambulatory in room with assist x1/walker; pt emili well, unsteady w/OOB activity. VSS. Telemetry:AV paced rhythm. On room air- pulse ox 95%, no SOB noted. Abd soft, emili PO. Ocampo P/I mod amts clear lt elizabeth urine. Pt
with multiple ecchymotic areas/skin tears on arms; family requesting WOC consult. Resting comfortably at present. Will continue to monitor.
[2024-10-16 03:12] VITALS: BP 94/68
[2024-10-16] MEDS: ProAmatine 10 MG PO ×3 (05:32→18:16)
[2024-10-16 06:00] VITALS: BMI 26.5
[2024-10-16 06:58] LABS: Hematocrit 27.2 % (39.0-52.0); Mean Corp Hgb Conc. 33.1 g/dL (33.0-37.0); Mean Corpuscular Hgb 28.8 pg (27.0-31.0); Mean Corpuscular Volume 86.9 fL (80.0-94.0); Mean Platelet Volume 9.7 fL (7.4-10.4); Platelet Count 121 10^3/uL (130-400); Red Blood Cell Count 3.13 10^6/uL (4.70-6.10); Red Cell Dist. Width 17.8 % (11.5-14.5); White Blood Cell Count 5.4 10^3/uL (4.8-10.8)
[2024-10-16 07:00] VITALS: BP 101/70
[2024-10-16 07:39] LABS: Blood Urea Nitrogen 160 mg/dl (9-20); Calcium 9.1 mg/dl (8.4-10.2); Carbon Dioxide 22 mmol/L (22-30); Chloride 87 mmol/L (98-107); Estimated Creatinine Clearance 19 ml/min; Glucose 105 mg/dl (70-99); Potassium 3.7 mmol/L (3.5-5.1); Sodium 128 mmol/L (135-145); eGFR 18.19
--- NOTE | 2024-10-16 08:27 | W.PN.CD ---
Today's Communication / Plan
-
holding diuretics, await renal recovery
thoracentesis on Fri or
Impression / Plan
-
BARBARA - acute on chronic.
- Nephrology following.
-wt up to 179 await renal improvement, Na is slightly lower
- holding diuretics for now, monitor daily weights and follow BMP.
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
- renal ultrasound:No evidence of renal collecting system dilatation bilaterally.
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
- holding diuretics for BARBARA as above.
- monitor daily weights, I&Os.
- weight 175 lbs at home--now 179
- follows with Dr. Cadet at [facility] for ATTR and HF.
Right pleural effusion:
-Slight worsening of right pleural effusion, which is now large. This is accompanied by compressive partial atelectasis in right lower lobe.
-plan for Thoracentesis this week
Amyloidosis - chronic.
- followed by Dr. Cadet at [facility].
- continue Tafamidis.
CAD - stable w/o angina.
- s/p CABG x 3 in 2021.
- continue medical therapy.
Afib - paroxysmal.
- s/p PVI 01/20/2023, YANI/DCCV 09/17/24 with Amiodarone loading (400mg BID x 2 weeks then 200mg daily since 09/17/24).
- had a prolonged episode of Afib 09/27-10/02, and converted to NSR 10/02/24.
- Eliquis 5mg bid, continue.
BiV ICD - [employer], stable with normal function.
- no discharges.
- followed in our device clinic and at [facility].
Subjective;
he is without sob, cp. He is willing to do HD if needed.
Physical Exam
Vital Signs/Labs
Vital Signs
Temp Pulse Resp BP Pulse Ox
97.5 F 109 18 94/65 98
10/16/24 03:12 10/16/24 05:32 10/16/24 03:12 10/16/24 05:32 10/16/24 03:12
10/15/24 10/16/24 10/17/24
06:59 06:59 06:59
Actual Weight 175 lb 5 oz 179 lb 5 oz
10/16/24 06:07
10/16/24 06:07
Magnesium 2.8 mg/dl (1.6-2.3) H 10/15/24 08:02
Physical Exam
Constitutional: No acute distress
Cardiovascular: Rhythm & rate is regular, Pedal edema is absent, JVD pressure is normal, Systolic murmur absent and Diastolic murmur absent
Respiratory: Respiratory effort normal, Lungs clear to auscul., Wheeze Absent, Crackles Absent and Rhonchi Absent
Neuro/Psych: AO x 3
Data Reviewed
-
Date of Service: October 16, 2024
Medical Decision Making: Review of Case with other Provider (Dr Johnson, plan for thoracentesis)
[2024-10-16] MEDS: ELIQUIS 5 MG PO ×2 (09:05→20:53)
[2024-10-16] MEDS: PROSCAR 5 MG PO (09:05)
[2024-10-16] MEDS: LIPITOR 40 MG PO (09:06)
[2024-10-16] MEDS: PACERONE 200 MG PO (09:06)
[2024-10-16] MEDS: NON-FORMULARY ITEM 80 MG PO (09:06)
[2024-10-16] MEDS: FLUSH (NSS) 1 FLUSH IV (09:09)
--- NOTE | 2024-10-16 09:43 | W.PN.HOSP.TC ---
Today's Communication/Plan
-
IRAD for thoracentesis Friday
PMR consult
IVF; follow labs
follow cards/renal recs
Assessment / Plan
Assessment / Plan
Assessment:
BARBARA on CKD stage 3b
- renal US negative
- holding diuretics
- IVF as per Nephrology
- monitor labs
- HD being discussed
Hypokalemia
- replete as indicated
Acute hyponatremia
- monitor BMP while on IVF
Chronic HFmrEF
- holding diuretics as above
- monitor I/Os, weights, lytes
- CBC cards following
Large R chronic pleural effusion
- arrange routine thoracentesis for Friday; orders placed
Hx of chronic amyloidosis with amyloid cardiomyopathy
- on Tafamidis 80mg daily (20mg x 4 tablets) - confirmed with pharmacy
Generalized malaise and weakness
- PT/OT - Acute rehab recommended. PMR consulted
parox atrial Fibrillation s/p recent cardioversion
- currently in sinus
- EXTRACTOR OPERATOR HELPER Eliquis (confirmed dosing with Cardiology in setting of renal failure)
- EXTRACTOR OPERATOR HELPER Amiodarone
HLD - EXTRACTOR OPERATOR HELPER Statin
BPH
Chronic Urinary Retention with [facility]
- EXTRACTOR OPERATOR HELPER Finasteride
- woodward was exchanged in ER
- abnormal UA, culture pending, hold off on further antibiotics for now
Neuropathy
- hold EXTRACTOR OPERATOR HELPER Gabapentin for now in setting of renal failure
- consider resuming 100 daily
Orthostatic Hypotension - EXTRACTOR OPERATOR HELPER Midodrine
Stage 2 sacral pressure injury POA
DVT ppx: Eliquis
code: DNR/DNI confirmed with family
Anticipated Discharge: > 48 hours
Subjective/Interval History
-
Date of Service: October 16, 2024
Feels the same, mostly unchanged
Cr remains 3.4 and NA 128
Objective Data
-
Labs:
Laboratory Results
10/16/24
06:07
WBC 5.4
Hgb 9.0 L
Hct 27.2 L
Plt Count 121 L
Sodium 128 L
Potassium 3.7
Chloride 87 L
Carbon Dioxide 22
BUN 160 H*
Creatinine 3.4 H
Glucose 105 H
Calcium 9.1
Vital Signs:
Vital Signs
Temp Pulse Resp BP Pulse Ox
97.4 F 105 20 101/70 100
10/16/24 07:00 10/16/24 07:00 10/16/24 07:00 10/16/24 07:00 10/16/24 07:00
I&O
10/15/24 10/16/24 10/17/24
06:59 06:59 06:59
Intake Total 960 / 960 1570 / 1570
Output Total 800 / 800 1400 / 1400
Balance 160 / 160 170 / 170
Physical Exam
-
General: No Apparent Distress
HEENT: Normocephalic and Atraumatic
Respiratory: Negative Wheezes
Cardiac: Regular Rhythm and S1/S2
GI: Soft and Nontender
Genito-urinary: No Costovertebral Tender
Neuro: AO x 3
Hematologic / Lymphatic: No Lymphadenopathy
Psych: Calm
Data Reviewed
-
Total Time Spent with Patient (in minutes): 42
Labs: Labs Reviewed by me
--- NOTE | 2024-10-16 10:03 | W.PN.NEPH.PH ---
Addendum entered and electronically signed by Michael Narvaez MD 10/16/24 10:06:
I will leave Tx UTI to primary team
Original Note:
Today's Communication / Plan
-
IVF
Assessment/Plan
-
IMP:
BARBARA
CKD 3b
Hypotension on midodrine
Atrial fibrillation pacemaker
Lower extremity erythema
Anemia of chronic disease
Hyponatremia
Hypokalemia
Cardiac amyloid
Urinary retention chronic Ocampo
Plan:
Holding diuretics for now.
Follow weights
IV fluids today
I discussed with the patient regarding the possibility of dialysis. He has never considered this previously but does not know much about dialysis. I directed him to instructional videos on the TV and asked him to think about this.
We discussed hemodialysis as well as cardiorenal syndrome.
I suspect he will ultimately require low-dose metolazone (1.25 or 2.5)more frequently in order to avoid hypotension from the 5 mg dose
Alternatively, higher doses of torsemide may also be used as needed
In either scenario it would be trial and error that the patient would need to go through to figure out optimal dosing
-
-
Date of Service: October 16, 2024
CC / HPI / ROS
-
Chief Complaint:
BARBARA
History of Present Illness:
BARBARA/Cr stable 3.4
BUN unchanged 160
Na low 128 stable
Review of Systems:
no CP/SOB
Labs
-
Labs:
WBC 5.4 10^3/uL (4.8-10.8) 10/16/24 06:07
RBC 3.13 10^6/uL (4.70-6.10) L 10/16/24 06:07
Hgb 9.0 g/dL (13.0-18.0) L 10/16/24 06:07
Hct 27.2 % (39.0-52.0) L 10/16/24 06:07
Plt Count 121 10^3/uL (130-400) L 10/16/24 06:07
Sodium 128 mmol/L (135-145) L 10/16/24 06:07
Potassium 3.7 mmol/L (3.5-5.1) 10/16/24 06:07
Chloride 87 mmol/L (98-107) L 10/16/24 06:07
Carbon Dioxide 22 mmol/L (22-30) 10/16/24 06:07
BUN 160 mg/dl (9-20) H* 10/16/24 06:07
Creatinine 3.4 mg/dL (0.7-1.3) H 10/16/24 06:07
eGFR 18.19 10/16/24 06:07
Glucose 105 mg/dl (70-99) H 10/16/24 06:07
Calcium 9.1 mg/dl (8.4-10.2) 10/16/24 06:07
Albumin 4.7 g/dl (3.5-5.0) 10/14/24 15:57
Physical Exam
-
Vital Signs:
Vital Signs
Temp Pulse Resp BP Pulse Ox
97.4 F 105 20 101/70 100
10/16/24 07:00 10/16/24 07:00 10/16/24 07:00 10/16/24 07:00 10/16/24 07:00
Cardiovascular:: Regular rate and rhythm
Respiratory:: Bilateral: Coarse
Lung Excursion:: Normal
Abdomen:: Nontender and Soft
Bowel Sounds:: Normal
Extremity Edema:: None: Bilateral:
[2024-10-16 11:22] VITALS: BP 87/59
[2024-10-16] MEDS: NSS 1000 IV (12:27)
--- NOTE | 2024-10-16 12:49 | PTCARENOTE ---
patient OOB in chair- heart rate elevated to 120-140's AV paced. patient with no symptoms- after 20 minutes rate remained elevated. BP 102/63. Dr Johnson and Dr Adamson aware- ECG completed. Instructed to 'watch for now'. patient aware to call if
any symptoms arise. call shi in reach. plan of care on going.
[2024-10-16 15:00] VITALS: BP 99/65
[2024-10-16] MEDS: AMPICILLIN 108 MG IV (18:16)
[2024-10-16 19:50] VITALS: BP 104/70
[2024-10-16 23:55] VITALS: BP 109/59
[2024-10-17 03:37] VITALS: BP 91/64
[2024-10-17] MEDS: AMPICILLIN 108 MG IV ×2 (05:05→18:02)
[2024-10-17] MEDS: ProAmatine 10 MG PO ×3 (05:09→16:54)
[2024-10-17 06:00] VITALS: BMI 26.8
[2024-10-17 06:50] LABS: Hematocrit 25.1 % (39.0-52.0); Hemoglobin 8.4 g/dL (13.0-18.0); Mean Corp Hgb Conc. 33.5 g/dL (33.0-37.0); Mean Corpuscular Hgb 28.6 pg (27.0-31.0); Mean Corpuscular Volume 85.4 fL (80.0-94.0); Mean Platelet Volume 9.5 fL (7.4-10.4); Platelet Count 99 10^3/uL (130-400); Red Blood Cell Count 2.94 10^6/uL (4.70-6.10); Red Cell Dist. Width 17.6 % (11.5-14.5); White Blood Cell Count 5.5 10^3/uL (4.8-10.8)
[2024-10-17 07:06] LABS: Calcium 7.8 mg/dl (8.4-10.2); Carbon Dioxide 20 mmol/L (22-30); Chloride 97 mmol/L (98-107); Estimated Creatinine Clearance 26 ml/min; Glucose 99 mg/dl (70-99); Potassium 2.8 mmol/L (3.5-5.1); Sodium 134 mmol/L (135-145)
[2024-10-17 07:10] LABS: Blood Urea Nitrogen 136 mg/dl (9-20)
[2024-10-17 07:23] VITALS: BP 99/67
--- NOTE | 2024-10-17 08:15 | W.PN.CD ---
Today's Communication / Plan
-
continue to hold diuresis
thoracentesis tomorrow
establishing 'new' dry weight
Impression / Plan
-
BARBARA - acute on chronic.
- Nephrology following.
-wt up to 181, but no signs of vol ol on exam,
-BUN and Cr slightly better at 136/2.5. Na improved and K low--ordered 40mEq for now
- holding diuretics for now, monitor daily weights and follow BMP.
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
- renal ultrasound:No evidence of renal collecting system dilatation bilaterally.
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
- holding diuretics for BARBARA as above.
- monitor daily weights, I&Os.
- weight 175 lbs at home--now 181--establishing new dry weight.
- follows with Dr. Cadet at [facility] for ATTR and HF.
Right pleural effusion:
-Slight worsening of right pleural effusion, which is now large. This is accompanied by compressive partial atelectasis in right lower lobe.
-plan for Thoracentesis this week
Amyloidosis - chronic.
- followed by Dr. Cadet at [facility].
- continue Tafamidis.
CAD - stable w/o angina.
- s/p CABG x 3 in 2021.
- continue medical therapy.
Afib - paroxysmal.
- s/p PVI 01/20/2023, YANI/DCCV 09/17/24 with Amiodarone loading (400mg BID x 2 weeks then 200mg daily since 09/17/24).
- had a prolonged episode of Afib 09/27-10/02, and converted to NSR 10/02/24.
- Eliquis 5mg bid, continue.
BiV ICD - [employer], stable with normal function.
- no discharges.
- followed in our device clinic and at [facility].
Subjective;
he is without sob, cp. Tired, not sleeping well here
Physical Exam
Vital Signs/Labs
Vital Signs
Temp Pulse Resp BP Pulse Ox
97.3 F 105 18 92/60 99
10/17/24 03:37 10/17/24 05:09 10/17/24 03:37 10/17/24 05:09 10/17/24 03:37
10/16/24 10/17/24 10/18/24
06:59 06:59 06:59
Actual Weight 179 lb 5 oz 181 lb 6 oz
10/17/24 06:17
10/17/24 06:17
Magnesium 2.8 mg/dl (1.6-2.3) H 10/15/24 08:02
Physical Exam
Constitutional: No acute distress
Cardiovascular: Rhythm & rate is regular, Pedal edema is absent, JVD pressure is normal, Systolic murmur absent and Diastolic murmur absent
Respiratory: Respiratory effort normal, Lungs clear to auscul., Wheeze Absent, Crackles Absent and Rhonchi Absent
Neuro/Psych: AO x 3
Data Reviewed
-
Date of Service: October 17, 2024
Medical Decision Making: Review of Case with other Provider (Dr Johnson, continue to establish new dry weight)
EKG: Other (intermittent svt/fib with vpacing, av pacing)
[2024-10-17] MEDS: KCL 40 MEQ PO ×2 (08:49→12:35)
[2024-10-17] MEDS: MIRALAX 17 GRAMS PO (08:49)
[2024-10-17] MEDS: PACERONE 200 MG PO (08:49)
[2024-10-17] MEDS: PROSCAR 5 MG PO (08:50)
[2024-10-17] MEDS: ELIQUIS 5 MG PO ×2 (08:50→20:16)
[2024-10-17] MEDS: NON-FORMULARY ITEM 80 MG PO (08:50)
[2024-10-17] MEDS: LIPITOR 40 MG PO (08:50)
--- NOTE | 2024-10-17 09:26 | W.PN.HOSP.TC ---
Today's Communication/Plan
-
replete K+
IVF
follow cards/renal recs
continue IV Abx for CAUTI
PMR eval Friday
Assessment / Plan
Assessment / Plan
Assessment:
BARBARA on CKD stage 3b
- renal US negative
- holding diuretics
- IVF as per Nephrology; CR 2.5
- monitor labs
- HD being discussed
Hypokalemia
- replete as indicated
Acute hyponatremia
- monitor BMP while on IVF
Chronic HFmrEF
- holding diuretics as above
- monitor I/Os, weights, lytes
- CBC cards following
Large R chronic pleural effusion
- arrange routine thoracentesis for Friday; orders placed
Hx of chronic amyloidosis with amyloid cardiomyopathy
- on Tafamidis 80mg daily (20mg x 4 tablets) - confirmed with pharmacy
Generalized malaise and weakness
- PT/OT - Acute rehab recommended. PMR consulted
parox atrial Fibrillation s/p recent cardioversion
- currently in sinus
- RED HAT OPEN STACK ADMINISTRATOR Eliquis (confirmed dosing with Cardiology in setting of renal failure)
- RED HAT OPEN STACK ADMINISTRATOR Amiodarone
HLD - RED HAT OPEN STACK ADMINISTRATOR Statin
BPH
Chronic Urinary Retention with Woodward
- RED HAT OPEN STACK ADMINISTRATOR Finasteride
- woodward was exchanged in ER
Multi-drug resistant Enterococcus faecalis CAUTI
- IV Ampicillin, day 2
Neuropathy
- hold RED HAT OPEN STACK ADMINISTRATOR Gabapentin for now in setting of renal failure
Orthostatic Hypotension - RED HAT OPEN STACK ADMINISTRATOR Midodrine
Stage 2 sacral pressure injury POA
DVT ppx: Eliquis
code: DNR/DNI confirmed with family
Anticipated Discharge: > 48 hours
Subjective/Interval History
-
Date of Service: October 17, 2024
feels tired but upbeat over improving Cr values
Objective Data
-
Labs:
Laboratory Results
10/17/24
06:17
WBC 5.5
Hgb 8.4 L
Hct 25.1 L
Plt Count 99 L
Sodium 134 L
Potassium 2.8 L
Chloride 97 L
Carbon Dioxide 20 L
BUN 136 H*
Creatinine 2.5 H
Glucose 99
Calcium 7.8 L
Vital Signs:
Vital Signs
Temp Pulse Resp BP Pulse Ox
97.4 F 105 20 99/67 100
10/17/24 07:23 10/17/24 08:49 10/17/24 07:23 10/17/24 08:49 10/17/24 08:42
I&O
10/16/24 10/17/24 10/18/24
06:59 06:59 06:59
Intake Total 1570 / 1570 2156 / 2156
Output Total 1400 / 1400 1550 / 1550
Balance 170 / 170 606 / 606
Physical Exam
-
General: No Apparent Distress
HEENT: Normocephalic and Atraumatic
Respiratory: Negative Wheezes
Cardiac: Regular Rhythm and S1/S2
GI: Soft and Nontender
Genito-urinary: No Costovertebral Tender
Neuro: AO x 3
Psych: Calm
Data Reviewed
-
Total Time Spent with Patient (in minutes): 42
Labs: Labs Reviewed by me
[2024-10-17 11:21] VITALS: BMI 26.8
[2024-10-17 11:55] VITALS: BP 94/65
[2024-10-17] MEDS: NSS 500 IV (12:15)
[2024-10-17] MEDS: FLUSH (NSS) 1 FLUSH IV ×2 (12:16→18:02)
--- NOTE | 2024-10-17 12:51 | W.PN.NEPH.PH ---
Today's Communication / Plan
-
Follow BMP
Assessment/Plan
-
IMP:
BARBARA
CKD 3b
Hypotension on midodrine
Atrial fibrillation pacemaker
Lower extremity erythema
Anemia of chronic disease
Hyponatremia
Hypokalemia
Cardiac amyloid
Urinary retention chronic Ocampo
Plan:
Holding diuretics for now still
Follow weights, weight today was not standing
No further IV fluids
Discussed with daughter at bedside. He does not require dialysis at this time though is certainly high risk for requiring dialysis in the future outpatient modality training will be needed.
There is increased urine output possibly from post BARBARA
Continue antibiotics for Enterococcus UTI
Ocampo is chronic
I suspect he will ultimately require low-dose metolazone (1.25 or 2.5)more frequently in order to avoid hypotension from the 5 mg dose
Alternatively, higher doses of torsemide may also be used as needed
In either scenario it would be trial and error that the patient would need to go through to figure out optimal dosing
-
-
Date of Service: October 17, 2024
CC / HPI / ROS
-
Chief Complaint:
BARBARA
History of Present Illness:
BARBARA/Cr down to 2.5
BUN down to 136
Na up to 134
K low 2.8
Nonoliguric
BP low but stable
Review of Systems:
no CP/SOB
Labs
-
Labs:
WBC 5.5 10^3/uL (4.8-10.8) 10/17/24 06:17
RBC 2.94 10^6/uL (4.70-6.10) L 10/17/24 06:17
Hgb 8.4 g/dL (13.0-18.0) L 10/17/24 06:17
Hct 25.1 % (39.0-52.0) L 10/17/24 06:17
Plt Count 99 10^3/uL (130-400) L 10/17/24 06:17
Sodium 134 mmol/L (135-145) L 10/17/24 06:17
Potassium 2.8 mmol/L (3.5-5.1) L 10/17/24 06:17
Chloride 97 mmol/L (98-107) L 10/17/24 06:17
Carbon Dioxide 20 mmol/L (22-30) L 10/17/24 06:17
BUN 136 mg/dl (9-20) H* 10/17/24 06:17
Creatinine 2.5 mg/dL (0.7-1.3) H 10/17/24 06:17
eGFR 26.30 10/17/24 06:17
Glucose 99 mg/dl (70-99) 10/17/24 06:17
Calcium 7.8 mg/dl (8.4-10.2) L 10/17/24 06:17
Albumin 4.7 g/dl (3.5-5.0) 10/14/24 15:57
Physical Exam
-
Vital Signs:
Vital Signs
Temp Pulse Resp BP Pulse Ox
97.4 F 110 20 94/65 100
10/17/24 11:55 10/17/24 12:15 10/17/24 11:55 10/17/24 12:15 10/17/24 11:55
Cardiovascular:: Regular rate and rhythm
Respiratory:: Bilateral: Coarse
Lung Excursion:: Normal
Abdomen:: Nontender and Soft
Bowel Sounds:: Normal
Extremity Edema:: None: Bilateral:
[2024-10-17 15:02] VITALS: BP 103/70
[2024-10-17 16:33] LABS: Glucose - Point of Care 124 mg/dl (70-99)
--- NOTE | 2024-10-17 16:40 | PTCARENOTE ---
Pt AAO x3; العلي; OOB to chair with assist x1; emili OOB activity but tires easily. VSS. Telemetry:AV paced rhythm. On room ai- pulse ox 100%, no SOB noted. Abd large, soft, emili PO well. Ocampo P/I mod amts clear yellow urine. Arms with multiple
skin tears/oozing blood from IV attempts/lab draws; pressure dsgs intact on both lower arms. Resting in bed at present. Will continue to monitor.
[2024-10-17 19:53] VITALS: BP 110/76
[2024-10-17 23:55] VITALS: BP 110/80
[2024-10-18] VITALS (8 sets, daily range): BP systolic 80–110; BP diastolic 62–77; BMI 26.9
[2024-10-18] MEDS: AMPICILLIN 108 MG IV (05:04)
[2024-10-18] MEDS: ProAmatine 10 MG PO ×3 (05:12→17:15)
[2024-10-18 07:39] LABS: Hematocrit 23.9 % (39.0-52.0); Hemoglobin 8.2 g/dL (13.0-18.0); Mean Corp Hgb Conc. 34.3 g/dL (33.0-37.0); Mean Corpuscular Hgb 28.9 pg (27.0-31.0); Mean Corpuscular Volume 84.2 fL (80.0-94.0); Mean Platelet Volume 9.6 fL (7.4-10.4); Platelet Count 117 10^3/uL (130-400); Red Blood Cell Count 2.84 10^6/uL (4.70-6.10); Red Cell Dist. Width 17.4 % (11.5-14.5); White Blood Cell Count 6.3 10^3/uL (4.8-10.8)
[2024-10-18] MEDS: ELIQUIS 5 MG PO ×2 (08:17→20:53)
[2024-10-18] MEDS: PROSCAR 5 MG PO (08:17)
[2024-10-18] MEDS: LIPITOR 40 MG PO (08:17)
[2024-10-18] MEDS: PACERONE 200 MG PO (08:17)
[2024-10-18] MEDS: NON-FORMULARY ITEM 80 MG PO (08:21)
--- NOTE | 2024-10-18 09:13 | W.PN.CD ---
Today's Communication / Plan
-
Awaiting Cr nephro following holding diuretics
Impression / Plan
-
BARBARA - acute on chronic.
- Nephrology following.
-wt up to 182 lbs, but no signs of vol ol on exam,
-BUN and Cr slightly better at 136/2.5. Na improved and K low--ordered 40mEq for now
- Continued holding diuretics for now, monitor daily weights and follow BMP.
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
- renal ultrasound:No evidence of renal collecting system dilatation bilaterally.
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
- holding diuretics for BARBARA as above.
- monitor daily weights, I&Os.
- weight 175 lbs at home--now 181--establishing new dry weight.
- follows with Dr. Cadet at [facility] for ATTR and HF.
Right pleural effusion:
-Slight worsening of right pleural effusion, which is now large. This is accompanied by compressive partial atelectasis in right lower lobe.
-plan for Thoracentesis this week
Amyloidosis - chronic.
- followed by Dr. Cadet at [facility].
- continue Tafamidis.
CAD - stable w/o angina.
- s/p CABG x 3 in 2021.
- continue medical therapy.
Afib - paroxysmal.
- s/p PVI 01/20/2023, YANI/DCCV 09/17/24 with Amiodarone loading (400mg BID x 2 weeks then 200mg daily since 09/17/24).
- had a prolonged episode of Afib 09/27-10/02, and converted to NSR 10/02/24.
- Eliquis 5mg bid, continue.
BiV ICD - [employer], stable with normal function.
- no discharges.
- followed in our device clinic and at [facility].
Subjective;
Tired no SOB feeling OK
Physical Exam
Vital Signs/Labs
Vital Signs
Temp Pulse Resp BP Pulse Ox
97.6 F 80 20 95/66 100
10/18/24 07:05 10/18/24 08:17 10/18/24 07:05 10/18/24 07:05 10/18/24 07:05
10/17/24 10/18/24 10/19/24
06:59 06:59 06:59
Actual Weight 181 lb 6 oz 182 lb 4 oz
10/18/24 07:15
Magnesium 2.8 mg/dl (1.6-2.3) H 10/15/24 08:02
Physical Exam
Constitutional: No acute distress and Comfortable
EENT: Anicteric
Cardiovascular: Rhythm & rate is regular and Other
Respiratory: Respiratory effort normal and Lungs clear to auscul.
GI: Soft
Neuro/Psych: Alert and Oriented
Data Reviewed
-
Date of Service: October 18, 2024
Medical Decision Making: Reviewed Test Results
EKG: Tracing Personally Visualized and interpreted (paced)
Echo: Report Reviewed by me
Labs: Labs Reviewed by me
[2024-10-18 10:15] LABS: Calcium 8.7 mg/dl (8.4-10.2); Carbon Dioxide 17 mmol/L (22-30); Chloride 93 mmol/L (98-107); Estimated Creatinine Clearance 23 ml/min; Glucose 131 mg/dl (70-99); Potassium 4.1 mmol/L (3.5-5.1); Sodium 127 mmol/L (135-145); Total Protein 6.6 g/dl (6.3-8.2); eGFR 22.96
[2024-10-18 10:20] LABS: Body Fluid pH 7.46
[2024-10-18 10:27] LABS: Blood Urea Nitrogen 148 mg/dl (9-20)
--- NOTE | 2024-10-18 11:04 | PTCARENOTE ---
Returned from IR post thoracentesis with band aid to R back. This RN Concerned for hematoma as patient presented with swelling under bandaid, 4X5 round and about a half of an inch raise. Small dime sized bruise under band aid. IR RN notified
Lillian. IR RN with patient at bedside. IR RN states she 'believes this is lidocaine under the skin, IR PA will be notified.' Plan of care ongoing.
--- NOTE | 2024-10-18 11:15 | W.PN.HOSP.TC ---
Addendum entered and electronically signed by Alley Landers MD 10/18/24 11:20:
patient is s/p thoracentesis this morning
Original Note:
Today's Communication/Plan
-
see plan
Assessment / Plan
Assessment / Plan
Mr. 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
chronic woodward catheter presents to the ER for weakness and outpatient labs showing worsening renal function.
BARBARA on CKD stage 3b
- renal US negative
- s/p IVF administration
- this morning, BUN and creatinine rising; weight gain; I appreciate JVP on exam.
- follow up with Renal if diuretics should be resumed
Hypokalemia
- replete as indicated
Acute hyponatremia
-had improved, now 127 this AM
Chronic HFmrEF
- holding diuretics as above; follow up with Renal timing of resumption
- monitor I/Os, weights, lytes
- CBC cards following
Large R chronic pleural effusion
- arrange routine thoracentesis for Friday; orders placed
Hx of chronic amyloidosis with amyloid cardiomyopathy
- on Tafamidis 80mg daily (20mg x 4 tablets) - confirmed with pharmacy
Generalized malaise and weakness
- PT/OT - Acute rehab recommended. PMR consulted
parox atrial Fibrillation s/p recent cardioversion
- currently in sinus
- WELDER APPRENTICE ARC Eliquis
- WELDER APPRENTICE ARC Amiodarone
HLD - WELDER APPRENTICE ARC Statin
BPH
Chronic Urinary Retention with Woodward
- WELDER APPRENTICE ARC Finasteride
- woodward was exchanged in ER
Multi-drug resistant Enterococcus faecalis CAUTI
- IV Ampicillin, day 09/10
Neuropathy
- hold WELDER APPRENTICE ARC Gabapentin for now in setting of renal failure
Orthostatic Hypotension - WELDER APPRENTICE ARC Midodrine
Stage 2 sacral pressure injury POA
DVT ppx: Eliquis
code: DNR/DNI confirmed with family
Anticipated Discharge: 24 - 48 hours
Subjective/Interval History
-
Date of Service: October 18, 2024
feeling well
denies chest pain or shortness of breath
Objective Data
-
Labs:
Laboratory Results
10/18/24
07:15
WBC 6.3
Hgb 8.2 L
Hct 23.9 L
Plt Count 117 L
Sodium 127 L
Potassium 4.1 D
Chloride 93 L
Carbon Dioxide 17 L
BUN 148 H*
Creatinine 2.8 H
Glucose 131 H
Calcium 8.7
Vital Signs:
Vital Signs
Temp Pulse Resp BP Pulse Ox
96.4 F L 107 18 94/74 99
10/18/24 09:21 10/18/24 10:03 10/18/24 10:03 10/18/24 10:03 10/18/24 09:21
I&O
10/17/24 10/18/24 10/19/24
06:59 06:59 06:59
Intake Total 2156 / 2156 1656 / 1656
Output Total 1550 / 1550 1450 / 1450
Balance 606 / 606 206 / 206
Review of Systems
-
History Source: Patient
All other systems: Reviewed and negative
Physical Exam
-
General: No Apparent Distress
HEENT: Normocephalic and Atraumatic
Respiratory: Negative Wheezes
Cardiac: Regular Rhythm, S1/S2 and JVD
GI: Soft and Nontender
Genito-urinary: No Costovertebral Tender
Neuro: AO x 3
Psych: Calm
Data Reviewed
-
Diagnostic Radiology: Report Reviewed by me
Labs: Labs Reviewed by me
--- NOTE | 2024-10-18 11:21 | WOUNDNOTE ---
R HAND AND WRIST
--- NOTE | 2024-10-18 11:21 | WOUNDNOTE ---
SACRUM/GLUTEAL CLEFT
--- NOTE | 2024-10-18 11:22 | WOUNDNOTE ---
L MEDIAL HAND, DISTAL TO THUMB
--- NOTE | 2024-10-18 11:25 | WOUNDNOTE ---
WON RN note: Patient admitted with renal insufficiency, hypokalemia and acute UTI.
See H&P for complete history. Lives with .
PMH: CAD,CABG,CHF,HTN,VA,Gout, enlarged prostate-frequent urination, skin tears and gluteal cleft PI.
Wound Location and type/assessment: Patient known to service, last seen 06/28/24 for skin tears, L heel ulcer, gluteal cleft PI and abrasions on legs. Today asked to see patient for skin tears he obtained when IV's removed, according to patient. R
arm near elbow nearly healed, silicone foam in use. R index finger tear with viable flap and distal R arm tiny skin tear. L medial hand, distal to thumb with small skin tear that easily bleeds, patient on Eliquis. Multiple bruising on both
arms/hands. Assessed both heels, L heel wound healed, both blanchable red. Gluteal cleft with healed PI, tiny suspected abrasion noted. Blanchable pink skin on sacrum.
Appetite:Good.
Pressure redistribution devices in place: Accumax, able to turn self. Pillow under calves.
Plan: R arm skin tear near elbow, silicone foam maintained, nearly healed. All other dressings changed, Vaseline gauze and dry dressing. Silicone foam applied to sacrum. Will confirm orders with hospitalist and updated nurse Kat. Updated care
plan and will follow as needed.
Note to case management of equipment requested for discharge: VN
Recommend follow up at wound care center upon discharge.
[2024-10-18 11:51] LABS: Body Fluid WBC 100 /CUMM
[2024-10-18 11:59] LABS: Body Fluid Second Tech EF
--- NOTE | 2024-10-18 12:00 | PTCARENOTE ---
Patient with noted elevated HR of 115-130 at rest. AV paced. asymptomatic. Dr. Landers made aware. Plan of care ongoing.
--- NOTE | 2024-10-18 12:11 | W.PN.NEPH.PH ---
Today's Communication / Plan
-
Lasix IV x 1
Assessment/Plan
-
IMP:
BARBARA
CKD 3b
Hypotension on midodrine
Atrial fibrillation pacemaker
Lower extremity erythema
Anemia of chronic disease
Hyponatremia
Hypokalemia
Cardiac amyloid
Urinary retention chronic Ocampo
Plan:
Follow weights, weight today was not standing
No further IV fluids
Previous discussion with daughter by Dr Narvaez in regards to dialysis
Continue antibiotics for Enterococcus UTI
Ocampo is chronic
Azotemia worse with hyponatremia now
Agree with IV diuretics now
Discussed dialysis with him again today I told him we will need to decide the next 24 to 48 hours but appears he is refractory to diuretics in the sense that he becomes severely azotemic although requires on a regular basis.
I discussed with primary hospitalist give Lasix 40 x 1 intravenously
Will make a decision tomorrow on dialysis
-
-
Date of Service: October 18, 2024
CC / HPI / ROS
-
Chief Complaint:
BARBARA
History of Present Illness:
BARBARA/Cr down to 2.5
BUN down to 136
Na up to 134
K low 2.8
Nonoliguric
BP low but stable
Review of Systems:
no CP/SOB
Labs
-
Labs:
WBC 6.3 10^3/uL (4.8-10.8) 10/18/24 07:15
RBC 2.84 10^6/uL (4.70-6.10) L 10/18/24 07:15
Hgb 8.2 g/dL (13.0-18.0) L 10/18/24 07:15
Hct 23.9 % (39.0-52.0) L 10/18/24 07:15
Plt Count 117 10^3/uL (130-400) L 10/18/24 07:15
Sodium 127 mmol/L (135-145) L 10/18/24 07:15
Potassium 4.1 mmol/L (3.5-5.1) D 10/18/24 07:15
Chloride 93 mmol/L (98-107) L 10/18/24 07:15
Carbon Dioxide 17 mmol/L (22-30) L 10/18/24 07:15
BUN 148 mg/dl (9-20) H* 10/18/24 07:15
Creatinine 2.8 mg/dL (0.7-1.3) H 10/18/24 07:15
eGFR 22.96 10/18/24 07:15
Glucose 131 mg/dl (70-99) H 10/18/24 07:15
Calcium 8.7 mg/dl (8.4-10.2) 10/18/24 07:15
Albumin 4.7 g/dl (3.5-5.0) 10/14/24 15:57
Physical Exam
-
Vital Signs:
Vital Signs
Temp Pulse Resp BP Pulse Ox
97.4 F 108 20 99/70 100
10/18/24 11:18 10/18/24 11:18 10/18/24 11:18 10/18/24 11:18 10/18/24 11:18
Cardiovascular:: Regular rate and rhythm
Respiratory:: Bilateral: Coarse
Lung Excursion:: Normal
Abdomen:: Nontender and Soft
Bowel Sounds:: Normal
Extremity Edema:: None: Bilateral:
[2024-10-18] MEDS: LASIX 40 MG IV (12:43)
[2024-10-18 13:10] LABS: LDH 325 U/L (120-246)
[2024-10-18 13:15] LABS: Body Fluid Glucose 120 mg/dl; Body Fluid LDH 122 U/L
[2024-10-18 13:21] LABS: Body Fluid Triglycerides < 30 mg/dl
--- NOTE | 2024-10-18 13:30 | W.PN.UPDATE ---
Update Note
Progress Note Update
Spoke with the patient's and daughter at the bedside today about dialysis. As explained to them with diuretics he has a worsening azotemia and without diuretics he has significant fluid retention with multiple admissions.
Explained on the dialysis is the immediate and that we will help rectify this.
With that said, the patient is reluctant to start a dialysis and in fact palliative care had been discussed prior to admission here and even hospice if elect not to do dialysis.
Family agrees with my explanation all questions were answered
--- NOTE | 2024-10-18 13:47 | PTCARENOTE ---
Notified cardiology of persistent HR 110-140. AV paced. Cardiology ADMITTING REPRESENTATIVE at floor to review tele. Plan of care ongoing.
--- NOTE | 2024-10-18 15:38 | HOSPNOTE ---
Notified of patient being interested in hospice. Patient is out of our territory. CM and Attending aware.
--- NOTE | 2024-10-18 16:37 | CON.MR ---
Consultation
Consultation Request
Date/Time Consultation Performed: 10/18/2024 1630
Performing Provider: Dr. Rogers
Reason for Consultation: Weakness
Medical History
-
Chief Complaint: Weakness
History of Present Illness:
I had the opportunity to see Candelario Zurita in rehabilitation consultation today. This is a a 73 year old male [facility] histoyr of amyloid cardiomyopathy and admitted to [facility] on 10/14 due to worsening generalized weakness. Was noted with
worsening renal function in ER as well as hyponatremia, and significant chronic right pleural effusion. Was also noted with UTI now on IV ampicillin. Patient did have right thoracentesis today.
Patient seen at bedside this afternoon. States he is 'tired' and did not get up with participate in therapy sessions today. States breathing a little better now since the thoracentesis. Denies any chest pain or current SOB. No dizziness or
lightheadedness. No other significant pain complaints.
Hospital course still with worsening renal function - and nephrology following for possibility for dialysis but patient was refusing at present time. BUN/Cr 148/2.8 and LDH is 325. Also still with NA 127 and Hgb 8.2.
Lives with in a 1 story home, with 3 steps to enter. Is independent with all mobility and ADLs but consistently uses a walker for mobility prior to admission. is able to help at home if needed.
Past medical history:
CKD stage IIIb
Cardiac amyloid
ischemic cardiomyopathy EF 50-55% September 2023
chronic diastolic heart failure
chronic bilateral leg edema
orthostatic hypotension
HTN�benign
CAD/OH/CABG x 3 vessel 2021
chronic anemia, chronic macrocytic anemia
HLD
PAF off anticoagulation due to unable to afford Eliquis
history of right retinal eye hemorrhage 2022,
LBBB,
bradycardia
restrictive lung disease
former smoker
pulmonary nodule
recurrent pleural effusions requiring thoracentesis
obstructive sleep apnea status post uvulectomy
remote history hepatitis
Raynaud's disease
gout
insomnia
osteoarthritis
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
Past Surgical History:
CAD/OH/CABG x 3 vessel 2021
Knee replacement
Hernia repair x 2
Cholecystectomy
Social History
Functional Level Premorbidity:
Independent for all activities. Uses walker at home
Current Funct Level: Ambulation, Transfer, UE/LE Dressing:
From PT 10/15: Min A bed mobility, Min A transfers, Min A ambulation 24' with walker
Tobacco: Former Smoker
Alcohol: Former
Living: With Spouse
Number of Floors: 1
# Steps to Enter: 3
Potential First Floor Set Up: Yes
Allergies / Home Medications
Allergy/AdvReac Type Severity Reaction Status Date / Time
No Known Allergies Allergy Verified 10/14/24 14:36
�Medication �Instructions �Recorded �Confirmed �Last Taken �Type
cholecalciferol (vitamin D3) 25 25 mcg PO DAILY Supplement 03/18/22 10/14/24 10/14/24 History
mcg (1,000 unit) capsule (Vitamin
D3)
midodrine 5 mg tablet 10 mg PO TID@0600,1200,1700 05/12/24 10/14/24 10/13/24 History
HYPOTENSION
gabapentin 100 mg capsule 100 mg PO TID NEUROPATHY 06/25/24 10/14/24 10/14/24 History
potassium chloride 20 mEq 40 meq PO DAILY Electrolyte 06/25/24 10/14/24 10/14/24 History
tablet,extended release(part/cryst) Repletion
torsemide 20 mg tablet 60 mg PO BID Heart Failure 06/25/24 10/14/24 10/14/24 History
amiodarone 200 mg tablet 200 mg PO DAILY #130 tabs 09/17/24 10/14/24 10/14/24 Rx
apixaban 5 mg tablet (Eliquis) 5 mg PO BID 09/17/24 10/14/24 10/14/24 History
atorvastatin 40 mg tablet 40 mg PO DAILY 09/17/24 10/14/24 10/14/24 History
finasteride 5 mg tablet 5 mg PO DAILY 09/17/24 10/14/24 10/14/24 History
acetaminophen 325 mg tablet 650 mg PO Q6HPRN PRN mild pain 10/14/24 10/14/24 10/13/24 History
(Tylenol)
polyethylene glycol 3350 17 gram 17 g PO Q48H 10/14/24 10/14/24 10/13/24 History
oral powder packet (Miralax)
tafamidis meglumine 20 mg capsule 80 mg PO DAILY 10/14/24 10/15/24 10/14/24 History
(Vyndaqel)
Review Of Systems
-
History Source: Patient
All other systems: Negative unless noted
Constitutional: Reports Fatigue
Eye: Reports No Symptoms
EENT: Reports No Symptoms
Respiratory: Reports Trouble Breathing
Cardiac: Reports No Symptoms
Abdomen/GI: Reports No Symptoms
: Reports No Symptoms
Musculoskeletal: Reports Joint Pain, Muscle Pain and Muscle Stiffness
Integumentary: Reports No Symptoms
Neurological: Reports Weakness
Psych: Reports No Symptoms
Endocrine: Reports No Symptoms
Hematologic/Lymphatic: Reports No Symptoms
Immunology: Reports No Symptoms
Physical Exam
Active Medications
Generic Name Dose Route Start Last Admin
Trade Name Freq PRN Reason Stop Dose Admin
Acetaminophen 650 mg 10/14/24 20:44
Acetaminophen 325 Mg Tablet PO 11/11/24 20:43
Q6HPRN PRN
mild pain
Amiodarone HCl 200 mg 10/15/24 08:00 10/18/24 08:17
Amiodarone 200 Mg Tablet PO 11/12/24 07:59 200 mg
DAILY BAILEE Administration
Amoxicillin 500 mg 10/18/24 20:00
Amoxicillin 500 Mg Capsule PO
BID BAILEE
Apixaban 5 mg 10/15/24 08:00 10/18/24 08:17
Apixaban (Eliquis) 5 Mg Tablet PO 11/12/24 07:59 5 mg
BID BAILEE Administration
Atorvastatin Calcium 40 mg 10/15/24 08:00 10/18/24 08:17
Atorvastatin (Lipitor) 40 Mg Tablet PO 11/12/24 07:59 40 mg
DAILY BAILEE Administration
Bisacodyl 10 mg 10/14/24 20:44
Bisacodyl 10 Mg Rectal Suppository RECTAL 11/11/24 20:43
[id number] PRN
constipation
Finasteride 5 mg 10/15/24 08:00 10/18/24 08:17
Finasteride 5 Mg Tablet PO 11/12/24 07:59 5 mg
DAILY BAILEE Administration
Midodrine 10 mg 10/15/24 06:00 10/18/24 12:01
Midodrine 5 Mg Tablet PO 11/12/24 05:59 10 mg
TID@0600,1200,1700 BAILEE Administration
Pts Owntafamidis 0 mg 10/15/24 08:00 10/18/24 08:21
Meglumine [Vyndaqel] PO 11/12/24 07:59 80 mg
20 Mg Capsule Po 80 DAILY BAILEE Administration
Mg Daily
Polyethylene Glycol 17 grams 10/15/24 08:00 10/17/24 08:49
Polyethylene Glycol Powder 17 Grams Packet PO 11/12/24 07:59 17 grams
Q48H BAILEE Administration
Polyethylene Glycol 17 grams 10/14/24 20:44
Polyethylene Glycol Powder 17 Grams Packet PO 11/11/24 20:43
DAILYPRN PRN
constipation
Senna/Docusate Sodium 1 tablet 10/14/24 20:44
Docusate W/Senna (Rena-Colace) Tablet PO 11/11/24 20:43
BIDPRN PRN
constipation
Sodium Chloride 0 flush 10/14/24 21:00 10/17/24 18:02
Sodium Chloride 0.9% (Flush) Syringe IV 11/11/24 20:59 1 flush
PER PROTOCOL BAILEE Administration
Vital Signs
Temp Pulse Resp BP Pulse Ox
97.4 F 117 20 105/68 100
10/18/24 15:07 10/18/24 15:07 10/18/24 15:07 10/18/24 15:07 10/18/24 15:07
Height 5 ft 9 in
Actual Weight 82.667 kg
Body Mass Index (BMI) 26.9
Physical Exam
Physical Exam:
General Appearance/Observation: Well-developed, well-nourished individual in no apparent distress, lying in bed.
Pain/Comfort Assessment: Denies
Mood/Affect: A little flat but otherwise appropriate
Eyes: Conjunctiva/Lids: normal Pupils: pupils equal round and reactive to light and Accommodation
Ears/Nose/Throat: oral mucosa moist, throat clear. Lips/Teeth/Gums: normal
Neck: No muscle spasm or tenderness
Cardiovascular: Heart: regular, no murmur
Pulses: dorsalis pedis 2+ bilaterally
Respiratory: Respiratory Effort/Chest Expansion: normal Auscultation: Decreased breath sounds at bases, no rhonchi
Gastrointestinal: abdomen not tender, no distension, normal abdominal bowel sounds
Genitourinary: + Woodward
Extremities: Edema: trace bilateral LE - Venous stasis discoloration in distal LE's
Neurology Exam:
Orientation: Alert, Oriented to self, Time, Place
Speech: Intact - poor dentition
Comprehension: Intact
Two step command: Intact
Cranial Nerves: - intact and symmetric
Sensory:
Light touch: Intact in bilateral upper and lower extremities - maybe slight stocking distribution decrease in bilateral feet but no asymmetry.
Reflexes:
Biceps: trace bilaterally
Achilles: absent bilaterally
Babinski: Downgoing bilaterally
Clonus: None
Jennifer: Negative bilaterally
Cerebellar: Dysmetria/Ataxia: None
Musculoskeletal:
Motor: (Manual muscle scale 0-5)
Muscle SA EF WE EE FF FA HF KE DF EHL PF
Right 4 5 5 4 4 4 5 5 5 5
Left 4 5 5 4 4 4 5 5 5 5
Tone: Normal in all extremities
Range of Motion: Passively within normal limits in all extremities
Lab Results
10/18/24 07:15
10/18/24 07:15
WBC 6.3 10^3/uL (4.8-10.8) 10/18/24 07:15
Hgb 8.2 g/dL (13.0-18.0) L 10/18/24 07:15
Hct 23.9 % (39.0-52.0) L 10/18/24 07:15
MCV 84.2 fL (80.0-94.0) 10/18/24 07:15
Plt Count 117 10^3/uL (130-400) L 10/18/24 07:15
Sodium 127 mmol/L (135-145) L 10/18/24 07:15
Potassium 4.1 mmol/L (3.5-5.1) D 10/18/24 07:15
Chloride 93 mmol/L (98-107) L 10/18/24 07:15
Carbon Dioxide 17 mmol/L (22-30) L 10/18/24 07:15
BUN 148 mg/dl (9-20) H* 10/18/24 07:15
Creatinine 2.8 mg/dL (0.7-1.3) H 10/18/24 07:15
eGFR 22.96 10/18/24 07:15
Glucose 131 mg/dl (70-99) H 10/18/24 07:15
Calcium 8.7 mg/dl (8.4-10.2) 10/18/24 07:15
Magnesium 2.8 mg/dl (1.6-2.3) H 10/15/24 08:02
Total Bilirubin 1.3 mg/dl (0.2-1.3) 10/14/24 15:57
AST 63 U/L (17-59) H 10/14/24 15:57
ALT 39 U/L (0-50) 10/14/24 15:57
Alkaline Phosphatase 105 U/L (38-126) 10/14/24 15:57
Total Protein 6.6 g/dl (6.3-8.2) 10/18/24 07:15
Albumin 4.7 g/dl (3.5-5.0) 10/14/24 15:57
Diagnostic Results
As per HPI.
Comorbidities / Impairment Group
Comorbidities:
ARF, amyloid cardiomyopathy
Impairment Group:
debility/deconditioning
Assessment / Plan
Plan
Assessment:
73 year old male with ambulatory and ADL dysfunction due to significant deconditioning, weakness with acute renal failure with worsening azotemia still
PM&R PT/OT to increase independence with ADLs, improve balance, coordination, endurance, strength, mobility, community reintegration, decreased burden of care on others and family education.
Debility: Weakness is probably multifactorial - worsening azotemia, hyponatremia, UTI and pleural effusion/cardiomyopathy.
-Also with significant anemia likely due to renal disease
- He stated too fatigued today to participate in bedside therapies - maybe better now since the thoracentesis?
- probable peripheral polyneuropathy with worsening renal disease. But seems like he has preserved LE/ankle strength.
cardiomyopathy: Monitor fluid status - is now s/p thoracentesis
-Nephrology following and feels patient needs dialysis since cannot use diuretics with worsening renal function, and will still have worsening fluid retention
- Is on Vyndaqel
UTI: - On amoxicillin. Has woodward catheter for now.
Orthostasis - is on midodrine.
Anemia: Likely renal disease. Continue to monitor.
Thrombocytopenia: Relatively low at 117
Hyponatremia - 127 today - nephrology following.
Skin: Sacral pressure ulcer
Psych: Psychology consult. Monitor mood, adjust medications as needed.
Pain: acetaminophen as needed.
- Gabapentin 100mg ordered - needs low dose due to worsening renal function. If side effects/sedation/cognitive worsens, it could be due to worsening clearance of the gabapentin. monitor for now.
Bowel: Colace and Senna, PRN bisacodyl.
Bladder: Has woodward
DVT Prophylaxis: On eliquis
Pulmonary: Incentive spirometry
Safety: Continue to reinforce assistance with all transfers.
Code Status: DNR
Dispo (date/plan/equipment needs): Plan to be D/C evenutally Home with family care. Social history reviewed.
Functional and Medical Goals: Modified Independent with ADL�s, ambulation, transfers
Summary
-
Things that must be addressed in Hospital prior to discharge:
1. Please continue bedside PT/OT as tolerated
2. Please give blood pressure parameters if needed for therapy sessions.
Discharge Destination: Likely patient would need SNF level rehab due to medical condition and limited ability/energy to participate in therapy sessions.
-Would require 3hrs therapy/daily for acute inpatient rehab and would doubt he would tolerate that presently, and may do better with 1-2hrs/day at SNF level rehab.
Summary of recommendations:
- Discharge Destination: SNF when more medically stable.
Will sign off, please re-consult if needed.
Thank you for allowing me to care for your patient. Please contact me with any questions or concerns.
Data Reviewed
-
Radiology: Image Personally Visualized and interpreted and Report Reviewed by me
Labs: Labs Reviewed by me and Discussed with Patient
Comments
-
This note was dictated using a voice recognition system. Please excuse any typographical errors from heel lining paster. If you believe there are any discrepancies, please notify our office.
--- NOTE | 2024-10-18 16:39 | CM ---
Spoke with [facility] hospice liason who stated that patient is slightly out of the area they serve. Will talk to family and determine what agency they would like to pursue, if they are thinking that hospice is the path they want patient to
take.
Plan: Case management will continue to follow and assist with discharge planning. Family thinking of pursuing hospice. Will discuss options with family.
[2024-10-18 18:18] LABS: Body Fluid Amylase 63 U/L
[2024-10-18 18:43] LABS: Body Fluid Protein 3.4 g/dl
[2024-10-18] MEDS: AMOXIL 500 MG PO (20:53)
[2024-10-19 03:55] VITALS: BP 99/63
[2024-10-19] MEDS: ProAmatine 10 MG PO ×3 (05:32→18:01)
[2024-10-19 06:00] VITALS: BMI 26.3
[2024-10-19 07:00] VITALS: BP 93/55
[2024-10-19 09:44] LABS: Hematocrit 24.5 % (39.0-52.0); Hemoglobin 8.1 g/dL (13.0-18.0); Mean Corp Hgb Conc. 33.1 g/dL (33.0-37.0); Mean Corpuscular Hgb 28.5 pg (27.0-31.0); Mean Corpuscular Volume 86.3 fL (80.0-94.0); Mean Platelet Volume 9.3 fL (7.4-10.4); Platelet Count 115 10^3/uL (130-400); Red Blood Cell Count 2.84 10^6/uL (4.70-6.10); Red Cell Dist. Width 17.1 % (11.5-14.5); White Blood Cell Count 7.5 10^3/uL (4.8-10.8)
--- NOTE | 2024-10-19 10:21 | W.PN.CD ---
Today's Communication / Plan
-
Considering Hospice
Diuretics per nephrology
Impression / Plan
-
BARBARA - acute on chronic.
- Nephrology following.
-wt now 178 lbs, but no signs of vol ol on exam,
-BUN and Cr worsening
- Continued holding diuretics for now, monitor daily weights and follow BMP.
-Discussed HD with patient he tells me he does not want HD
- renal ultrasound:No evidence of renal collecting system dilatation bilaterally.
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
- holding diuretics for BARBARA as above.
- monitor daily weights, I&Os.
- weight 175 lbs at home--now 181--establishing new dry weight.
- follows with Dr. Cadet at [facility] for ATTR and HF.
Right pleural effusion:
-Slight worsening of right pleural effusion, which is now large. This is accompanied by compressive partial atelectasis in right lower lobe.
-plan for Thoracentesis this week
Amyloidosis - chronic.
- followed by Dr. Cadet at [facility].
- continue Tafamidis.
CAD - stable w/o angina.
- s/p CABG x 3 in 2021.
- continue medical therapy.
Afib - paroxysmal.
- s/p PVI 01/20/2023, YANI/DCCV 09/17/24 with Amiodarone loading (400mg BID x 2 weeks then 200mg daily since 09/17/24).
- had a prolonged episode of Afib 09/27-10/02, and converted to NSR 10/02/24.
- Eliquis 5mg bid, continue.
BiV ICD - [employer], stable with normal function.
- no discharges.
- followed in our device clinic and at [facility].
Subjective;
Tired no SOB feeling OK, given worsening renal function hospice being considered
Physical Exam
Vital Signs/Labs
Vital Signs
Temp Pulse Resp BP Pulse Ox
97.3 F 82 16 93/55 100
10/19/24 07:00 10/19/24 07:00 10/19/24 07:00 10/19/24 07:00 10/19/24 07:00
10/18/24 10/19/24 10/20/24
06:59 06:59 06:59
Actual Weight 182 lb 4 oz 178 lb 1 oz
10/19/24 09:09
Magnesium 2.8 mg/dl (1.6-2.3) H 10/15/24 08:02
Physical Exam
Constitutional: No acute distress and Comfortable
EENT: Anicteric
Cardiovascular: Rhythm & rate is regular and Pedal edema is absent
Respiratory: Respiratory effort normal and Lungs clear to auscul.
GI: Soft
Neuro/Psych: Alert and Oriented
Data Reviewed
-
Date of Service: October 19, 2024
EKG: Tracing Personally Visualized and interpreted (sr)
Echo: Report Reviewed by me
Labs: Labs Reviewed by me
[2024-10-19 10:35] LABS: Blood Urea Nitrogen 129 mg/dl (9-20); Calcium 8.6 mg/dl (8.4-10.2); Carbon Dioxide 21 mmol/L (22-30); Chloride 90 mmol/L (98-107); Estimated Creatinine Clearance 25 ml/min; Glucose 168 mg/dl (70-99); Potassium 3.5 mmol/L (3.5-5.1); Sodium 126 mmol/L (135-145); eGFR 25.09
[2024-10-19] MEDS: AMOXIL 500 MG PO ×2 (10:52→20:34)
[2024-10-19] MEDS: LIPITOR 40 MG PO (10:52)
[2024-10-19] MEDS: ELIQUIS 5 MG PO ×2 (10:52→20:34)
[2024-10-19] MEDS: PROSCAR 5 MG PO (10:53)
[2024-10-19] MEDS: NON-FORMULARY ITEM 80 MG PO (10:54)
[2024-10-19 11:00] VITALS: BP 88/64
--- NOTE | 2024-10-19 11:13 | W.PN.HOSP.TC ---
Today's Communication/Plan
-
resume OPERATIONAL ASSISTANT Torsemide
GOC discussions on-going
Assessment / Plan
Assessment / Plan
Mr. 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
chronic woodward catheter presents to the ER for weakness and outpatient labs showing worsening renal function.
BARBARA on CKD stage 3b
- renal US negative
- s/p IVF administration
- BUN and creatinine up on 10/18, now overloaded; s/p IV lasix with mild improvement this morning
- GOC discussions had. Patient would not want dialysis. With frequent admissions, heart failure and renal failure; hospice has been consulted. Patient is leaning towards hospice.
- discussed with Renal and will resume OPERATIONAL ASSISTANT Torsemide
Hypokalemia
- replete as indicated
Acute hyponatremia
Hypervolemic hyponatremia
-resume Torsemide as above
Chronic HFmrEF
- Resume Torsemide- discussed with Renal
- monitor I/Os, weights, lytes
- CBC cards following
Large R chronic pleural effusion
-s/p thoracentesis on 10/18
Hx of chronic amyloidosis with amyloid cardiomyopathy
- on Tafamidis 80mg daily (20mg x 4 tablets) - confirmed with pharmacy
Generalized malaise and weakness
- PT/OT - Acute rehab recommended. PMR consulted
parox atrial Fibrillation s/p recent cardioversion
- currently in sinus
- OPERATIONAL ASSISTANT Eliquis
- OPERATIONAL ASSISTANT Amiodarone
HLD - OPERATIONAL ASSISTANT Statin
BPH
Chronic Urinary Retention with Woodward
- OPERATIONAL ASSISTANT Finasteride
- woodward was exchanged in ER
Multi-drug resistant Enterococcus faecalis CAUTI
- IV Ampicillin --> amoxicillin , day 10/11
Neuropathy
- hold OPERATIONAL ASSISTANT Gabapentin for now in setting of renal failure
Orthostatic Hypotension - OPERATIONAL ASSISTANT Midodrine
Stage 2 sacral pressure injury POA
DVT ppx: Eliquis
code: DNR/DNI confirmed with family
Anticipated Discharge: 24 - 48 hours
Subjective/Interval History
-
Date of Service: October 19, 2024
feels tired today
he doesn't want dialysis and wants to avoid these frequent admissions
Objective Data
-
Labs:
Laboratory Results
10/19/24
09:09
WBC 7.5
Hgb 8.1 L
Hct 24.5 L
Plt Count 115 L
Sodium 126 L
Potassium 3.5
Chloride 90 L
Carbon Dioxide 21 L
BUN 129 H*
Creatinine 2.6 H
Glucose 168 H
Calcium 8.6
Vital Signs:
Vital Signs
Temp Pulse Resp BP Pulse Ox
98.0 F 82 18 88/64 98
10/19/24 11:00 10/19/24 11:00 10/19/24 11:00 10/19/24 11:00 10/19/24 11:00
I&O
10/18/24 10/19/24 10/20/24
06:59 06:59 06:59
Intake Total 1656 / 1656 960 / 960
Output Total 1450 / 1450 2225 / 2225
Balance 206 / 206 -1265 / -1265
Review of Systems
-
History Source: Patient
All other systems: Reviewed and negative
Physical Exam
-
General: No Apparent Distress
HEENT: Normocephalic and Atraumatic
Respiratory: Negative Wheezes
Cardiac: Regular Rhythm, S1/S2 and JVD
GI: Soft and Nontender
Genito-urinary: No Costovertebral Tender
Neuro: AO x 3
Psych: Calm
Data Reviewed
-
Diagnostic Radiology: Report Reviewed by me
Labs: Labs Reviewed by me
[2024-10-19] MEDS: DEMADEX 60 MG PO ×2 (12:24→18:02)
[2024-10-19] MEDS: PACERONE 200 MG PO (12:29)
[2024-10-19] MEDS: KCL 40 MEQ PO (12:29)
[2024-10-19] MEDS: MIRALAX PO (12:30)
--- NOTE | 2024-10-19 15:00 | W.PN.NEPH.PH ---
Today's Communication / Plan
-
No dialysis per patient
Assessment/Plan
-
IMP:
BARBARA
CKD 3b
Hypotension on midodrine
Atrial fibrillation pacemaker
Lower extremity erythema
Anemia of chronic disease
Hyponatremia
Hypokalemia
Cardiac amyloid
Urinary retention chronic Ocampo
Plan:
Follow weights, weight today was not standing
No further IV fluids
Previous discussion with daughter by Dr Narvaez in regards to dialysis
Continue antibiotics for Enterococcus UTI
Ocampo is chronic
Azotemia worse with hyponatremia now
Continue torsemide
Again discussed with the patient he tells me no dialysis
Pending decision for palliative or hospice care
-
-
Date of Service: October 19, 2024
CC / HPI / ROS
-
Chief Complaint:
BARBARA
History of Present Illness:
BARBARA/Cr down to 2.5
BUN down to 136
Na up to 134
K low 2.8
Nonoliguric
BP low but stable
Review of Systems:
no CP/SOB
Labs
-
Labs:
WBC 7.5 10^3/uL (4.8-10.8) 10/19/24 09:09
RBC 2.84 10^6/uL (4.70-6.10) L 10/19/24 09:09
Hgb 8.1 g/dL (13.0-18.0) L 10/19/24 09:09
Hct 24.5 % (39.0-52.0) L 10/19/24 09:09
Plt Count 115 10^3/uL (130-400) L 10/19/24 09:09
Sodium 126 mmol/L (135-145) L 10/19/24 09:09
Potassium 3.5 mmol/L (3.5-5.1) 10/19/24 09:09
Chloride 90 mmol/L (98-107) L 10/19/24 09:09
Carbon Dioxide 21 mmol/L (22-30) L 10/19/24 09:09
BUN 129 mg/dl (9-20) H* 10/19/24 09:09
Creatinine 2.6 mg/dL (0.7-1.3) H 10/19/24 09:09
eGFR 25.09 10/19/24 09:09
Glucose 168 mg/dl (70-99) H 10/19/24 09:09
Calcium 8.6 mg/dl (8.4-10.2) 10/19/24 09:09
Albumin 4.7 g/dl (3.5-5.0) 10/14/24 15:57
Physical Exam
-
Vital Signs:
Vital Signs
Temp Pulse Resp BP Pulse Ox
98.0 F 81 18 108/58 98
10/19/24 11:00 10/19/24 12:24 10/19/24 11:00 10/19/24 12:24 10/19/24 11:00
Cardiovascular:: Regular rate and rhythm
Respiratory:: Bilateral: Coarse
Lung Excursion:: Normal
Abdomen:: Nontender and Soft
Bowel Sounds:: Normal
Extremity Edema:: None: Bilateral:
--- NOTE | 2024-10-19 15:36 | CS.PSYCHR ---
Consult Summary - Psychiatry
-
Pt is a 73 yo male, with history of amyloid cardiomyopathy, admitted to 10/14/24 due to worsening generalized weakness, worsening renal function as well as hyponatremia, and chronic right pleural effusion, also noted with UTI now on IV ampicillin.
Pt had right thoracentesis 10/18. Pt noted c/o feeling 'tired', reports breathing a little better after thoracentesis. Hospital course significant for worsening renal function. Nephrology recommending dialysis, but pt is declining. Na 126. QTc
in 600's, V-paced. Psychiatry asked to evaluate for depression. Upon approach, pt appears despondent, states it doesn't matter. He c/o feeling tired, tired of living. He states he does not want dialysis, states his does not drive, does not
give any other specific reason. Pt states he is aware he could from renal failure. Pt was given education about antidepressants, and after discussion ultimately declined to try. Chart indicates palliative care or hospice has been discussed for
pt. When asked about the recommendation for rehab due to deconditioning, pt also declines. Pt denies active suicidal ideation.
Psych Hx: denied
SH: Lives with , has been independent with ADL's, using a walker for limited mobility prior to admission.
MSE: pt alert, oriented, making eye contact, polite. Reclining in bed, slumped/leaning to the left, unkempt. +Psychomotor slowing. Affect depressed/flat, mood despondent. Passive wish to , denies active SI
Cognition appears intact. Insight fair. No signs of psychosis
Imp: Unspecified situational depression. Not a good candidate for SSRI due to low Sodium and prolonged QTc
Rec: Would consider trial of Wellbutrin (has lower risk of affecting Sodium level), although pt is declining today
Will follow
[2024-10-19 15:50] VITALS: BP 90/47
[2024-10-19 19:55] VITALS: BP 93/61
[2024-10-20] VITALS (9 sets, daily range): BP systolic 92–132; BP diastolic 53–74; PULSE 84; BMI 26.5
[2024-10-20] MEDS: ProAmatine 10 MG PO ×3 (05:35→16:38)
--- NOTE | 2024-10-20 10:04 | W.PN.CD ---
Today's Communication / Plan
-
Cont meds
Impression / Plan
-
BARBARA - acute on chronic.
- Nephrology following.
-wt has been stable 178-181 lb
-BUN and Cr stabilizing
- Back on torsemide
-Considering palliative care vs hospice
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
- holding diuretics for BARBARA as above.
- monitor daily weights, I&Os.
- weight 175 lbs at home--now 181--establishing new dry weight.
- follows with Dr. Cadet at [facility] for ATTR and HF.
Right pleural effusion:
-s/p thora
Amyloidosis - chronic.
- followed by Dr. Cadet at [facility].
- continue Tafamidis.
CAD - stable w/o angina.
- s/p CABG x 3 in 2021.
- continue medical therapy.
Afib - paroxysmal.
- s/p PVI 01/20/2023, YANI/DCCV 09/17/24 with Amiodarone loading (400mg BID x 2 weeks then 200mg daily since 09/17/24).
- had a prolonged episode of Afib 09/27-10/02, and converted to NSR 10/02/24.
- Eliquis 5mg bid, continue.
BiV ICD - [employer], stable with normal function.
- no discharges.
- followed in our device clinic and at [facility].
Subjective;
Feeling less tired today no new complaints
Physical Exam
Vital Signs/Labs
Vital Signs
Temp Pulse Resp BP Pulse Ox
96.8 F L 82 16 94/61 100
10/20/24 07:05 10/20/24 07:05 10/20/24 07:05 10/20/24 07:05 10/20/24 07:05
04/15/25 04/16/25 04/17/25
06:59 06:59 06:59
Actual Weight 178 lb 1 oz 179 lb
10/19/24 09:09
Magnesium 2.8 mg/dl (1.6-2.3) H 10/15/24 08:02
Physical Exam
Constitutional: No acute distress and Comfortable
EENT: Anicteric
Cardiovascular: Rhythm & rate is regular and Pedal edema present
Respiratory: Respiratory effort normal and Lungs clear to auscul.
GI: Soft
Neuro/Psych: Alert and Oriented
Data Reviewed
-
Date of Service: October 20, 2024
Medical Decision Making: Reviewed Test Results
EKG: Tracing Personally Visualized and interpreted (sr)
Echo: Report Reviewed by me
Labs: Labs Reviewed by me
[2024-10-20] MEDS: PACERONE 200 MG PO (10:10)
[2024-10-20] MEDS: PROSCAR 5 MG PO (10:11)
[2024-10-20] MEDS: LIPITOR 40 MG PO (10:11)
[2024-10-20] MEDS: ELIQUIS 5 MG PO ×2 (10:11→21:32)
[2024-10-20] MEDS: AMOXIL 500 MG PO ×2 (10:11→21:32)
[2024-10-20] MEDS: NON-FORMULARY ITEM 80 MG PO (10:12)
[2024-10-20 10:15] LABS: Calcium 8.6 mg/dl (8.4-10.2); Carbon Dioxide 21 mmol/L (22-30); Chloride 90 mmol/L (98-107); Estimated Creatinine Clearance 25 ml/min; Glucose 122 mg/dl (70-99); Magnesium 2.4 mg/dl (1.6-2.3); Potassium 3.6 mmol/L (3.5-5.1); Sodium 125 mmol/L (135-145); eGFR 25.09
[2024-10-20 10:26] LABS: Blood Urea Nitrogen 127 mg/dl (9-20)
--- NOTE | 2024-10-20 10:38 | CM ---
Addendum entered by TAMIA Storey 10/20/24 16:47:
Additional referrals sent to [facility], Jaylon Rodriguez, [facility] Plummer, Robin Rodriguez and the [facility].
Addendum entered by TAMIA Storey 10/20/24 10:57:
Referrals sent to Aníbal Donato, Yon[facility] and [facility] S[facility]. Will await responses and update patient and his .
Original Note:
Placed a call to patient's to discuss discharge planning. She stated that she is no longer considering hospice and she would like for patient to go to SNF near her home in [place]. Will send referrals to requested facilities and determine
who can accept. Patient will also need to participate in PT so his functional status is known.
Plan: Case management will continue to follow and assist with discharge planning. SNF when bed is found.
[2024-10-20] MEDS: DEMADEX 60 MG PO ×2 (11:37→16:38)
--- NOTE | 2024-10-20 12:11 | W.PN.NEPH.PH ---
Addendum entered and electronically signed by Gustavo Moreno DO 10/20/24 12:38:
samsca today
Original Note:
Today's Communication / Plan
-
Supportive care/diuretic
Assessment/Plan
-
IMP:
BARBARA
CKD 3b
Hypotension on midodrine
Atrial fibrillation pacemaker
Lower extremity erythema
Anemia of chronic disease
Hyponatremia
Hypokalemia
Cardiac amyloid
Urinary retention chronic Ocampo
Plan:
Follow weights, weight today was not standing
No further IV fluids
Previous discussion with daughter by Dr Narvaez in regards to dialysis
Continue antibiotics for Enterococcus UTI
Ocampo is chronic
Azotemia worse with hyponatremia not much improvement
Continue torsemide
Again discussed with the patient he tells me no dialysis
Pending decision for palliative or hospice care
-
-
Date of Service: October 20, 2024
CC / HPI / ROS
-
Chief Complaint:
BARBARA
History of Present Illness:
BARBARA/Cr d minimal improvement
Nonoliguric
BP low but stable
Review of Systems:
no CP/SOB
Labs
-
Labs:
WBC 7.5 10^3/uL (4.8-10.8) 10/19/24 09:09
RBC 2.84 10^6/uL (4.70-6.10) L 10/19/24 09:09
Hgb 8.1 g/dL (13.0-18.0) L 10/19/24 09:09
Hct 24.5 % (39.0-52.0) L 10/19/24 09:09
Plt Count 115 10^3/uL (130-400) L 10/19/24 09:09
Sodium 125 mmol/L (135-145) L 10/20/24 08:31
Potassium 3.6 mmol/L (3.5-5.1) 10/20/24 08:31
Chloride 90 mmol/L (98-107) L 10/20/24 08:31
Carbon Dioxide 21 mmol/L (22-30) L 10/20/24 08:31
BUN 127 mg/dl (9-20) H* 10/20/24 08:31
Creatinine 2.6 mg/dL (0.7-1.3) H 10/20/24 08:31
eGFR 25.09 10/20/24 08:31
Glucose 122 mg/dl (70-99) H 10/20/24 08:31
Calcium 8.6 mg/dl (8.4-10.2) 10/20/24 08:31
Albumin 4.7 g/dl (3.5-5.0) 10/14/24 15:57
Physical Exam
-
Vital Signs:
Vital Signs
Temp Pulse Resp BP Pulse Ox
97.7 F 82 18 99/63 96
10/20/24 11:34 10/20/24 11:36 10/20/24 11:34 10/20/24 11:36 10/20/24 11:34
Cardiovascular:: Regular rate and rhythm
Respiratory:: Bilateral: Coarse
Lung Excursion:: Normal
Abdomen:: Nontender and Soft
Bowel Sounds:: Normal
Extremity Edema:: None: Bilateral:
--- NOTE | 2024-10-20 12:23 | W.PN.HOSP.TC ---
Today's Communication/Plan
-
discussing sodium with Renal - who will order Samsca
continue oral Torsemide
Reconsult Physiatry
Assessment / Plan
Assessment / Plan
Mr. 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
chronic woodward catheter presents to the ER for weakness and outpatient labs showing worsening renal function.
BARBARA on CKD stage 3b
- renal US negative
- s/p IVF administration
- BUN and creatinine up on 10/18, now overloaded; s/p IV lasix with mild improvement.
- HOTEL [employer]ITY OFFICER Torsemide resumed on 10/19 and labs stable
- GOC discussions had. Patient would not want dialysis. Hospice discussed but given improvement and stable labs on home diuretics, decision made to pursue palliative care which would continue to allow for rehab and lab checks. Patient and family
clear they would not want further admissions and if patient decompensated at home, they would transition to hospice instead of bringing him to the ER.
Hyponatremia
-Na 125 this morning,
-continue Torsemide and fluid restriction
-urine studies
-F/U further renal recs
Hypokalemia
- replete as indicated
Chronic HFmrEF
- Resume Torsemide- discussed with Renal
- monitor I/Os, weights, lytes
- CBC cards following
Large R chronic pleural effusion
-s/p thoracentesis on 10/18
Hx of chronic amyloidosis with amyloid cardiomyopathy
- on Tafamidis 80mg daily (20mg x 4 tablets) - confirmed with pharmacy
Generalized malaise and weakness
- PT/OT - Acute rehab recommended. PMR consulted - re-consult today; patient's energy improved and it is believed he would now participate in intensive therapy
paroxysmal atrial Fibrillation s/p recent cardioversion
- currently in sinus
- HOTEL [employer]ITY OFFICER Eliquis
- HOTEL SEC[employer]ITY OFFICER Amiodarone
HLD - HOTEL SECURITY OFFICER Statin
BPH
Chronic Urinary Retention with Woodward
- HOTEL SECURITY OFFICER Finasteride
- woodward was exchanged in ER
Multi-drug resistant Enterococcus faecalis CAUTI
- IV Ampicillin --> amoxicillin , day 11/10
Neuropathy
- hold HOTEL [employer]ITY OFFICER Gabapentin for now in setting of renal failure
Orthostatic Hypotension - HOTEL SECURITY OFFICER Midodrine
Stage 2 sacral pressure injury POA
DVT ppx: Eliquis
code: DNR/DNI confirmed with family
Anticipated Discharge: 24 - 48 hours
Subjective/Interval History
-
Date of Service: October 20, 2024
patient seen sitting up in chair
per family he looks a lot better today
patient feels better, no swelling
Objective Data
-
Labs:
Laboratory Results
10/20/24
08:31
Sodium 125 L
Potassium 3.6
Chloride 90 L
Carbon Dioxide 21 L
BUN 127 H*
Creatinine 2.6 H
Glucose 122 H
Calcium 8.6
Vital Signs:
Vital Signs
Temp Pulse Resp BP Pulse Ox
97.7 F 82 18 99/63 96
10/20/24 11:34 10/20/24 11:36 10/20/24 11:34 10/20/24 11:36 10/20/24 11:34
I&O
10/19/24 10/20/24 10/21/24
06:59 06:59 06:59
Intake Total 960 / 960 990 / 990
Output Total 2225 / 2225 2200 / 2200
Balance -1265 / -1265 -1210 / -1210
Review of Systems
-
History Source: Patient
All other systems: Reviewed and negative
Physical Exam
-
General: No Apparent Distress
HEENT: Normocephalic and Atraumatic
Respiratory: Negative Wheezes
Cardiac: Regular Rhythm and S1/S2; Negative JVD
GI: Soft and Nontender
Genito-urinary: No Costovertebral Tender
Musculoskeletal: No Edema
Neuro: AO x 3
Psych: Calm
Data Reviewed
-
Diagnostic Radiology: Report Reviewed by me
Labs: Labs Reviewed by me
--- NOTE | 2024-10-20 12:56 | W.PN.UPDATE ---
Update Note
Progress Note Update
patient seen chart reviewed. spoke with nursing. patient and d at bedside. everyone feels the patient is doing much better today. he appeared alert with some energy and was eating his lunch with it seemed some real interest. we talked about
the ? of antidepressant. he is not really willing to consider and frankly given the very low sodium even with wellbutrin i would not push it at this time. even wellbutrin can further decrease serum sodium. i told patient and family psych would be
happy to come and talk to mr spaulding and offer support. he has only to ask nsg to call us. we will sign off.
[2024-10-20] MEDS: KCL 40 MEQ PO (13:23)
[2024-10-20] MEDS: SAMSCA 30 MG PO (13:24)
[2024-10-20 16:30] LABS: Osmolality Urine 292 mOsm/kg (300-900)
--- NOTE | 2024-10-20 16:44 | W.PN.REHAB ---
Today's Communication / Plan
-
.
Assessment/Function
-
Assessment:
General: Lying in bed, but alert and oriented. NAD
Chest: Clear bilaterally
Heart: regular, no murmur
Abdomen: no guarding or tenderness. Bowel sounds present
Extremities: only mild weakness in bilateral LE with leg lifts in bed.
Neuro: No sensory deficits, no clonus, negative babinski.
Function:
Bed Mobility: Min A
Transfers: Supervision to min A
Ambulation: 24'x2 with RW min A
ADL's: Min A toileting, max A lower body dressing
Plan
-
Assessment:
73 year old male with ambulatory and ADL dysfunction due to significant deconditioning, weakness with acute renal failure with worsening azotemia still
PM&R PT/OT to increase independence with ADLs, improve balance, coordination, endurance, strength, mobility, community reintegration, decreased burden of care on others and family education.
Debility: Weakness is probably multifactorial - worsening azotemia, hyponatremia, UTI and pleural effusion/cardiomyopathy.
-Also with significant anemia likely due to renal disease
- He stated too fatigued today to participate in bedside therapies - maybe better now since the thoracentesis?
- probable peripheral polyneuropathy with worsening renal disease. But seems like he has preserved LE/ankle strength.
cardiomyopathy: Monitor fluid status - is now s/p thoracentesis
-Nephrology following and feels patient needs dialysis since cannot use diuretics with worsening renal function, and will still have worsening fluid retention
- Is now on Torsemide and fluid restrictions
UTI: - On amoxicillin. Has woodward catheter for now.
Orthostasis - is on midodrine.
Anemia: Likely renal disease. Continue to monitor.
Thrombocytopenia: Relatively low at 117
Hyponatremia - 125 today - still trending down, but on Torsemide and fluid restrictions - nephrology following.
Skin: Sacral pressure ulcer
Psych: Psychology consult. Monitor mood, adjust medications as needed.
Pain: acetaminophen as needed.
- Gabapentin 100mg ordered - needs low dose due to worsening renal function. If side effects/sedation/cognitive worsens, it could be due to worsening clearance of the gabapentin. monitor for now.
Bowel: Colace and Senna, PRN bisacodyl.
Bladder: Has woodward
DVT Prophylaxis: On eliquis
Pulmonary: Incentive spirometry
Safety: Continue to reinforce assistance with all transfers.
Code Status: DNR
Dispo (date/plan/equipment needs): Plan to be D/C evenutally Home with family care. Social history reviewed.
Patient participating and tolerating therapy sessions at bedside. He seems more motivated now to participate and improve strength, endurance, etc.
Could be candidate for acute rehab, as he seems willing and more able to tolerate the 3 hours of therapy/day for acute rehab qualification. Need to establish clear plan for renal function, and hyponatremia while at rehab - and likely will need
continuous nephrology consult following while at [place].
Subjective
-
Date of Service: October 20, 2024
Patient Complaints:
Fatigue. Denies any pain today, no dizziness or lightheadedness. States he tolerated the therapy today and walked out into the hallway. No SOB or lightheaded with the therapy session.
Vital Signs / Labs
-
Vital Signs and Labs:
Temp Pulse Resp BP Pulse Ox
97.2 F 82 16 102/60 100
10/20/24 15:05 10/20/24 16:38 10/20/24 15:05 10/20/24 16:38 10/20/24 15:05
10/19/24 09:09
10/20/24 08:31
10/20/24 10/20/24
08:31 16:12
Sodium 125 L
Chloride 90 L
Carbon Dioxide 21 L
BUN 127 H*
Creatinine 2.6 H
Glucose 122 H
Magnesium 2.4 H
Urine Osmolality 292 L
[2024-10-20 17:13] LABS: Urine Sodium < 5 mmol/L (30-90)
[2024-10-21] VITALS (7 sets, daily range): BP systolic 88–99; BP diastolic 45–75; BMI 26.2
[2024-10-21] MEDS: ProAmatine 10 MG PO ×3 (05:04→17:24)
[2024-10-21 06:43] LABS: Calcium 8.6 mg/dl (8.4-10.2); Carbon Dioxide 22 mmol/L (22-30); Chloride 92 mmol/L (98-107); Estimated Creatinine Clearance 25 ml/min; Glucose 122 mg/dl (70-99); Potassium 3.7 mmol/L (3.5-5.1); Sodium 128 mmol/L (135-145); eGFR 25.09
[2024-10-21 06:55] LABS: Blood Urea Nitrogen 123 mg/dl (9-20)
--- NOTE | 2024-10-21 08:16 | W.PN.CD ---
Today's Communication / Plan
-
continue current diuretic dose
will pursue palliative care with eventual hospice if clinical status further declines as an op
Impression / Plan
-
BARBARA - acute on chronic.
- Nephrology following.
-wt now 177lb
-BUN and Cr stabilizing
- Back on torsemide
-he never wants HD
-he would like to pursue palliative care and then transition to hospice at home if he ever needed another admision, he never plans on returning to the hospital
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
- back on Torsemide 60mg bid
- monitor daily weights, I&Os.
- weight 175 lbs at home when presented in BARBARA (but had also been on escalating doses metolazone)--establishing new 'dry' weight.
- follows with Dr. Cadet at [facility] for ATTR and HF.
Right pleural effusion:
-s/p thora
Amyloidosis - chronic.
- followed by Dr. Cadet at [facility].
- continue Tafamidis.
CAD - stable w/o angina.
- s/p CABG x 3 in 2021.
- continue medical therapy.
Afib - paroxysmal.
- s/p PVI 01/20/2023, YANI/DCCV 09/17/24 with Amiodarone loading (400mg BID x 2 weeks then 200mg daily since 09/17/24).
- intermitent svt, could be afib, then sinus while here on tele
- Eliquis 5mg bid, continue.
BiV ICD - [employer], stable with normal function.
- no discharges.
- followed in our device clinic and at [facility].
Subjective;
tired no cp or sob
Physical Exam
Vital Signs/Labs
Vital Signs
Temp Pulse Resp BP Pulse Ox
98.2 F 105 18 99/70 97
10/21/24 07:05 10/21/24 07:05 10/21/24 07:05 10/21/24 07:05 10/21/24 07:05
10/20/24 10/21/24 10/22/24
06:59 06:59 06:59
Actual Weight 179 lb 177 lb 1 oz
10/19/24 09:09
10/21/24 05:52
Magnesium 2.4 mg/dl (1.6-2.3) H 10/20/24 08:31
Physical Exam
Constitutional: No acute distress
Cardiovascular: Rhythm & rate is regular, Pedal edema is absent, JVD pressure is normal, Systolic murmur absent and Diastolic murmur absent
Respiratory: Respiratory effort normal, Lungs clear to auscul., Wheeze Absent, Crackles Absent and Rhonchi Absent
Neuro/Psych: AO x 3
Data Reviewed
-
Date of Service: October 21, 2024
Medical Decision Making: Review of Case with other Provider (Dr Landers, confirmed GOC)
EKG: Other (vpace in tachycardia with then av pacing)
[2024-10-21] MEDS: LIPITOR 40 MG PO (09:31)
[2024-10-21] MEDS: AMOXIL 500 MG PO ×2 (09:31→20:15)
[2024-10-21] MEDS: PACERONE 200 MG PO (09:31)
[2024-10-21] MEDS: MIRALAX 17 GRAMS PO (09:31)
[2024-10-21] MEDS: ELIQUIS 5 MG PO ×2 (09:31→20:15)
[2024-10-21] MEDS: PROSCAR 5 MG PO (09:32)
[2024-10-21] MEDS: NON-FORMULARY ITEM 80 MG PO (09:33)
--- NOTE | 2024-10-21 10:40 | W.PN.NEPH.PH ---
Today's Communication / Plan
-
Continue diuretics
Assessment/Plan
-
IMP:
BARBARA
CKD 3b
Hypotension on midodrine
Atrial fibrillation pacemaker
Lower extremity erythema
Anemia of chronic disease
Hyponatremia
Hypokalemia
Cardiac amyloid
Urinary retention chronic Ocampo
Plan:
Follow weights, weight today was not standing
No further IV fluids
Previous discussion with daughter by Dr Narvaez in regards to dialysis
Continue antibiotics for Enterococcus UTI
Ocampo is chronic
Azotemia worse with hyponatremia not much improvement
Continue torsemide
Patient declining dialysis
Ongoing decision for palliative or hospice care
Sodium better status post Samsca
-
-
Date of Service: October 21, 2024
CC / HPI / ROS
-
Chief Complaint:
BARBARA
History of Present Illness:
BARBARA/Cr d minimal improvement
Nonoliguric
BP low but stable
Review of Systems:
no CP/SOB
Labs
-
Labs:
WBC 7.5 10^3/uL (4.8-10.8) 10/19/24 09:09
RBC 2.84 10^6/uL (4.70-6.10) L 10/19/24 09:09
Hgb 8.1 g/dL (13.0-18.0) L 10/19/24 09:09
Hct 24.5 % (39.0-52.0) L 10/19/24 09:09
Plt Count 115 10^3/uL (130-400) L 10/19/24 09:09
Sodium 128 mmol/L (135-145) L 10/21/24 05:52
Potassium 3.7 mmol/L (3.5-5.1) 10/21/24 05:52
Chloride 92 mmol/L (98-107) L 10/21/24 05:52
Carbon Dioxide 22 mmol/L (22-30) 10/21/24 05:52
BUN 123 mg/dl (9-20) H* 10/21/24 05:52
Creatinine 2.6 mg/dL (0.7-1.3) H 10/21/24 05:52
eGFR 25.09 10/21/24 05:52
Glucose 122 mg/dl (70-99) H 10/21/24 05:52
Calcium 8.6 mg/dl (8.4-10.2) 10/21/24 05:52
Albumin 4.7 g/dl (3.5-5.0) 10/14/24 15:57
Physical Exam
-
Vital Signs:
Vital Signs
Temp Pulse Resp BP Pulse Ox
98.2 F 117 18 94/62 97
10/21/24 07:05 10/21/24 09:31 10/21/24 07:05 10/21/24 09:31 10/21/24 07:05
Cardiovascular:: Regular rate and rhythm
Respiratory:: Bilateral: Coarse
Lung Excursion:: Normal
Abdomen:: Nontender and Soft
Bowel Sounds:: Normal
Extremity Edema:: None: Bilateral:
--- NOTE | 2024-10-21 10:43 | CM ---
Received call from Angelina at [facility] in admissions, ([phone]) She stated that she can accept patient. # For NPI for facility [id number] For MD Anitha Garcia, [phone]. Spoke with attending who stated that patient may not be medically cleared
yet and they are hopeful for [facility] as first choice. Will wait for final determination regarding acceptance at Acute rehab and medical clearance. Patient will need an auth for transfer to [place] [facility] as well.
Plan: Case management will continue to follow and assist with discharge planning. Transfer to either acute rehab or SNF at [facility].
[2024-10-21] MEDS: DEMADEX 60 MG PO ×2 (11:14→17:24)
--- NOTE | 2024-10-21 11:17 | W.PN.HOSP.TC ---
Today's Communication/Plan
-
dispo planning for acute rehab
Assessment / Plan
Assessment / Plan
Mr. 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
chronic woodward catheter presents to the ER for weakness and outpatient labs showing worsening renal function.
BARBARA on CKD stage 3b
- renal US negative
- s/p IVF administration
- BUN and creatinine up on 10/18, now overloaded; s/p IV lasix with mild improvement.
- REPA[employer]ER [employer]URNITURE Torsemide resumed on 10/19 and labs stable
- GOC discussions had. Patient would not want dialysis. Hospice discussed but given improvement and stable labs on home diuretics, decision made to pursue palliative care which would continue to allow for rehab and lab checks. Patient and family
clear they would not want further admissions and if patient decompensated at home, they would transition to hospice instead of bringing him to the ER.
Hyponatremia
-continue Torsemide and fluid restriction
-s/p Tolvaptan with good response - 128 this AM
Hypokalemia
-takes daily potassium at home
-has been receiving 40mEq here daily
Chronic HFmrEF
- Resume Torsemide- discussed with Renal
- monitor I/Os, weights, lytes
- CBC cards following
Large R chronic pleural effusion
-s/p thoracentesis on 10/18
Hx of chronic amyloidosis with amyloid cardiomyopathy
- on Tafamidis 80mg daily (20mg x 4 tablets) - confirmed with pharmacy
Generalized malaise and weakness
- PT/OT - Acute rehab recommended. PMR consult appreciated
paroxysmal atrial Fibrillation s/p recent cardioversion
- currently in sinus
- REPA[employer]URNIT[employer] Eliquis
- REPAIRER [employer] FURNITURE Amiodarone
HLD - REPAIRER WOOD FURNITURE Statin
BPH
Chronic Urinary Retention with Woodward
- REPA[employer]ER [employer]URNIT[employer] Finasteride
- woodward was exchanged in ER
Multi-drug resistant Enterococcus faecalis CAUTI
- IV Ampicillin --> amoxicillin , day 12/11
Neuropathy
- hold [employer]PA[employer]ER [employer]URNIT[employer] Gabapentin for now in setting of renal failure
Orthostatic Hypotension - REPAIRER [employer] FURNITURE Midodrine
Stage 2 sacral pressure injury POA
DVT ppx: Eliquis
code: DNR/DNI confirmed with family
Anticipated Discharge: Within 24 hours
Subjective/Interval History
-
Date of Service: October 21, 2024
feeling well
seen sitting in a chair
Objective Data
-
Labs:
Laboratory Results
10/21/24
05:52
Sodium 128 L
Potassium 3.7
Chloride 92 L
Carbon Dioxide 22
BUN 123 H*
Creatinine 2.6 H
Glucose 122 H
Calcium 8.6
Vital Signs:
Vital Signs
Temp Pulse Resp BP Pulse Ox
98 F 119 18 88/57 96
10/21/24 11:10 10/21/24 11:10 10/21/24 11:10 10/21/24 11:10 10/21/24 11:10
I&O
10/20/24 10/21/24 10/22/24
06:59 06:59 06:59
Intake Total 990 / 990 1710 / 1710 240 / 240
Output Total 2200 / 2200 2850 / 2850 1150 / 1150
Balance -1210 / -1210 -1140 / -1140 -910 / -910
Review of Systems
-
History Source: Patient
All other systems: Reviewed and negative
Physical Exam
-
General: No Apparent Distress
HEENT: Normocephalic and Atraumatic
Respiratory: Negative Wheezes
Cardiac: Regular Rhythm and S1/S2; Negative JVD
GI: Soft and Nontender
Genito-urinary: No Costovertebral Tender
Musculoskeletal: No Edema
Neuro: AO x 3
Psych: Calm
Data Reviewed
-
Diagnostic Radiology: Report Reviewed by me
Labs: Labs Reviewed by me
[2024-10-21] MEDS: KCL 40 MEQ PO (11:29)
--- NOTE | 2024-10-21 11:55 | CM ---
Spoke with attending who stated that Dr. Rogers was consulted and does believe that patient may be a good fit for acute rehab. Placed a call to [facility] and spoke with Magali in admissions who stated that when patient is medically cleared for discharge
she should have a bed available pending obtaining auth from insurance.
Plan: Case management will continue to follow and assist with discharge planning. Pending [facility]/acute rehab.
--- NOTE | 2024-10-21 14:24 | CM ---
Spoke with Magali at [place], referral entered via [facility].
Patient will need insurance auth.
--- NOTE | 2024-10-21 17:17 | W.PN.UPDATE ---
Update Note
Progress Note Update
Nursing let our team know that HR was 120's, BP on low end as it has been (stable). Patient feeling fine. EKG done and stable, but wanted to be sure wasn't a ventricular arrhythmia and, therefore, pacemaker interrogated at bedside and discussed with
[employer] premium service representative who reports that the device appears to be tracking an atrial arrhythmia (not ventricular). Will not make any changes at this time.
[2024-10-22] VITALS (9 sets, daily range): BP systolic 83–107; BP diastolic 54–76; BMI 26.1
[2024-10-22] MEDS: TYLENOL 650 MG PO ×2 (00:01→06:02)
[2024-10-22] MEDS: ProAmatine 10 MG PO (05:57)
[2024-10-22 08:23] LABS: Blood Urea Nitrogen 116 mg/dl (9-20); Calcium 8.6 mg/dl (8.4-10.2); Carbon Dioxide 22 mmol/L (22-30); Chloride 94 mmol/L (98-107); Estimated Creatinine Clearance 27 ml/min; Glucose 126 mg/dl (70-99); Magnesium 2.2 mg/dl (1.6-2.3); Potassium 3.9 mmol/L (3.5-5.1); Sodium 130 mmol/L (135-145); eGFR 27.62
--- NOTE | 2024-10-22 08:46 | W.PN.CD ---
Today's Communication / Plan
-
increase midodrine to 15mg tid
will see if we can get some bb on board
Impression / Plan
-
BARBARA - acute on chronic.
-Nephrology following.
-stable at ~ 177lb
-BUN and Cr stabilizing
-Back on torsemide
-he never wants HD
-he would like to pursue palliative care and then transition to hospice at home if he ever needed another admission, he never plans on returning to the hospital
Afib - paroxysmal.
- s/p PVI 01/20/2023, YANI/DCCV 09/17/24 with Amiodarone loading (400mg BID x 2 weeks then 200mg daily since 09/17/24).
- intermitent svt, could be afib, then sinus while here on tele. In the last 24 hours more persistent, asx but bp is soft
-he just had a cardioversion and is fully loaded on amiodarone, don't see that repeating this will help at this time
-continue Amiodarone to help with rate control, bp limits bb titration, DIGOXIN CONTRAINDICATED with cardiac amyloidosis
-will increase midodrine and try to add small dose of bb to see if this helps with rate control
-Eliquis 5mg bid, continue.
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
- back on Torsemide 60mg bid
- monitor daily weights, I&Os.
- weight 175 lbs at home when presented in [place] (but had also been on escalating doses metolazone)--establishing new 'dry' weight.
- follows with Dr. Cadet at [facility] for ATTR and HF.
Right pleural effusion:
-s/p thora
Amyloidosis - chronic.
- followed by Dr. Cadet at [facility].
- continue Tafamidis.
CAD - stable w/o angina.
- s/p CABG x 3 in 2021.
- continue medical therapy.
BiV ICD - [place], stable with normal function.
- no discharges.
- followed in our device clinic and at [facility].
Subjective;
He is without complaint, no dizziness sob or palpitations
Physical Exam
Vital Signs/Labs
Vital Signs
Temp Pulse Resp BP Pulse Ox
97.6 F 112 18 93/62 96
10/22/24 07:05 10/22/24 07:05 10/22/24 07:05 10/22/24 07:05 10/22/24 07:05
10/21/24 10/22/24 10/23/24
06:59 06:59 06:59
Actual Weight 177 lb 1 oz 176 lb 9 oz
10/19/24 09:09
10/22/24 07:42
Magnesium 2.2 mg/dl (1.6-2.3) 10/22/24 07:42
Physical Exam
Constitutional: No acute distress
Cardiovascular: Rhythm & rate is regular (tachycardic), Pedal edema is absent, JVD pressure is normal, Systolic murmur absent and Diastolic murmur absent
Respiratory: Respiratory effort normal, Lungs clear to auscul., Wheeze Absent, Crackles Absent and Rhonchi Absent
Neuro/Psych: AO x 3
Data Reviewed
-
Date of Service: October 22, 2024
Medical Decision Making: Review of Case with other Provider (Dr Landers, difficult situation as bp/amyloid limits rates, just failed an attempt at rhythm control will try to introduce some rate control. )
EKG: Other (tele : more svt than not up into the 122's)
[2024-10-22] MEDS: LIPITOR 40 MG PO (09:15)
[2024-10-22] MEDS: AMOXIL 500 MG PO ×2 (09:15→21:07)
[2024-10-22] MEDS: PROSCAR 5 MG PO (09:15)
[2024-10-22] MEDS: PACERONE 200 MG PO (09:16)
[2024-10-22] MEDS: DEMADEX 60 MG PO ×2 (09:18→18:21)
[2024-10-22] MEDS: ELIQUIS 5 MG PO ×2 (09:18→21:07)
[2024-10-22] MEDS: NON-FORMULARY ITEM 80 MG PO (09:20)
--- NOTE | 2024-10-22 09:59 | W.PN.HOSP.TC ---
Today's Communication/Plan
-
DELINQUENCY PREVENTION OFFICER Torsemide
daily potassium (replete electrolytes tomorrow)
treatment of atrial arrhythmia per Cardiology
Assessment / Plan
Assessment / Plan
Mr. 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
chronic woodward catheter presents to the ER for weakness and outpatient labs showing worsening renal function.
BARBARA on CKD stage 3b
- renal US negative
- s/p IVF administration
- BUN and creatinine up on 10/18, now overloaded; s/p IV lasix with mild improvement.
- DELINQUENCY PREVENTION OFFICER Torsemide resumed on 10/19 and labs stable
- GOC discussions had. Patient would not want dialysis. Hospice discussed but given improvement and stable labs on home diuretics, decision made to pursue palliative care which would continue to allow for rehab and lab checks. Patient and family
clear they would not want further admissions and if patient decompensated at home, they would transition to hospice instead of bringing him to the ER.
Hyponatremia
-continue Torsemide and fluid restriction
-s/p Tolvaptan with good response
-Na 130 this AM
-repeat labs in one week
Atrial Tachycardia
-patient in fast atrial rate 100's-120's
-discussing with Cardiology - plan is to start metoprolol, increase midodrine dosing
Hypokalemia
-takes daily 40MEQ K at home
-given K has been stable on 40mEq daily here on his home Torsemide dose - will keep this dose at discharge with follow up labs
Chronic HFmrEF
- Resume Torsemide- discussed with Renal
- monitor I/Os, weights, lytes
- CBC cards following
Large R chronic pleural effusion
-s/p thoracentesis on 10/18
Hx of chronic amyloidosis with amyloid cardiomyopathy
- on Tafamidis 80mg daily (20mg x 4 tablets) - confirmed with pharmacy
Generalized malaise and weakness
- PT/OT - Acute rehab recommended. PMR consult appreciated
paroxysmal atrial Fibrillation s/p recent cardioversion
- currently in sinus
- DELINQUENCY PREVENTION OFFICER Eliquis
- DELINQUENCY PREVENTION OFFICER Amiodarone
HLD - DELINQUENCY PREVENTION OFFICER Statin
BPH
Chronic Urinary Retention with Woodward
- DELINQUENCY PREVENTION OFFICER Finasteride
- woodward was exchanged in ER
Multi-drug resistant Enterococcus faecalis CAUTI
- IV Ampicillin --> amoxicillin , day 01/10
Neuropathy
- hold DELINQUENCY PREVENTION OFFICER Gabapentin for now in setting of renal failure
Orthostatic Hypotension - DELINQUENCY PREVENTION OFFICER Midodrine
Stage 2 sacral pressure injury POA
DVT ppx: Eliquis
code: DNR/DNI confirmed with family
Anticipated Discharge: 24 - 48 hours
Subjective/Interval History
-
Date of Service: October 22, 2024
feeling well
denies palpitations
Objective Data
-
Labs:
Laboratory Results
10/22/24
07:42
Sodium 130 L
Potassium 3.9
Chloride 94 L
Carbon Dioxide 22
BUN 116 H*
Creatinine 2.4 H
Glucose 126 H
Calcium 8.6
Vital Signs:
Vital Signs
Temp Pulse Resp BP Pulse Ox
97.6 F 112 18 93/62 96
10/22/24 07:05 10/22/24 09:16 10/22/24 07:05 10/22/24 09:16 10/22/24 07:05
I&O
10/21/24 10/22/24 10/23/24
06:59 06:59 06:59
Intake Total 1710 / 1710 1680 / 1680
Output Total 2850 / 2850 3775 / 3775
Balance -1140 / -1140 -2094
Review of Systems
-
History Source: Patient
All other systems: Reviewed and negative
Physical Exam
-
General: No Apparent Distress
HEENT: Normocephalic and Atraumatic
Respiratory: Negative Wheezes
Cardiac: Regular Rhythm and S1/S2; Negative JVD
GI: Soft and Nontender
Genito-urinary: No Costovertebral Tender
Musculoskeletal: No Edema
Neuro: AO x 3
Psych: Calm
Data Reviewed
-
Diagnostic Radiology: Report Reviewed by me
Labs: Labs Reviewed by me
[2024-10-22] MEDS: ProAmatine 5 MG PO (10:25)
[2024-10-22] MEDS: KCL 40 MEQ PO (11:57)
[2024-10-22] MEDS: ProAmatine 15 MG PO ×2 (11:58→18:20)
--- NOTE | 2024-10-22 15:19 | W.PN.NEPH.PH ---
Today's Communication / Plan
-
follow labs
Assessment/Plan
-
IMP:
BARBARA
CKD 3b
Hypotension on midodrine
Atrial fibrillation pacemaker
Lower extremity erythema
Anemia of chronic disease
Hyponatremia
Hypokalemia
Cardiac amyloid
Urinary retention chronic Woodward
Plan:
slowly improving renal function
Follow weights-seem stable
tachy today-med adjustment per cards
back on TOrsemide
Bp soft on high dose midodrine
abx for UTI, chr woodward
sodium better at 130
Previous discussion with daughter by Dr aNrvaez in regards to dialysis
Patient declining dialysis
Ongoing decision for palliative or hospice care
-
-
Date of Service: October 22, 2024
CC / HPI / ROS
-
Chief Complaint:
BARBARA
History of Present Illness:
BARBARA/Cr d minimal improvement
cr down to 2.4, BUN 116
Nonoliguric, wt stable
tachycardic
BP low but stable
Review of Systems:
no CP/SOB at rest
Labs
-
Labs:
WBC 7.5 10^3/uL (4.8-10.8) 10/19/24 09:09
RBC 2.84 10^6/uL (4.70-6.10) L 10/19/24 09:09
Hgb 8.1 g/dL (13.0-18.0) L 10/19/24 09:09
Hct 24.5 % (39.0-52.0) L 10/19/24 09:09
Plt Count 115 10^3/uL (130-400) L 10/19/24 09:09
Sodium 130 mmol/L (135-145) L 10/22/24 07:42
Potassium 3.9 mmol/L (3.5-5.1) 10/22/24 07:42
Chloride 94 mmol/L (98-107) L 10/22/24 07:42
Carbon Dioxide 22 mmol/L (22-30) 10/22/24 07:42
BUN 116 mg/dl (9-20) H* 10/22/24 07:42
Creatinine 2.4 mg/dL (0.7-1.3) H 10/22/24 07:42
eGFR 27.62 10/22/24 07:42
Glucose 126 mg/dl (70-99) H 10/22/24 07:42
Calcium 8.6 mg/dl (8.4-10.2) 10/22/24 07:42
Albumin 4.7 g/dl (3.5-5.0) 10/14/24 15:57
Physical Exam
-
Vital Signs:
Vital Signs
Temp Pulse Resp BP Pulse Ox
97.1 F 80 18 88/54 100
10/22/24 11:05 10/22/24 13:52 10/22/24 11:05 10/22/24 13:52 10/22/24 11:05
Cardiovascular:: Regular rate and rhythm (tachy)
Respiratory:: Bilateral: Coarse
Lung Excursion:: Normal
Abdomen:: Nontender and Soft
Bowel Sounds:: Normal
Extremity Edema:: None: Bilateral:
Woodward Catheter: Yes
[2024-10-22] MEDS: LOPRESSOR 6.25 MG PO (15:31)
--- NOTE | 2024-10-22 16:57 | CM ---
Spoke with attending who stated that patient is not medically stable for discharge however may be tomorrow. Spoke with Magali in admissions at [facility] who stated that they are concerned about patient's low bp and labs. She stated that she will be
willing to offer a bed, pending auth, on Friday if patient looks medically stable.
Plan: Case management will continue to follow and assist with discharge planning. [facility] if auth obtained. [facility] still has a bed if he does not meet criteria for acute.
[2024-10-22] MEDS: LOPRESSOR 12.5 MG PO (21:07)
[2024-10-23] MEDS: COMPAZINE 10 MG IV (01:02)
[2024-10-23 03:02] VITALS: BP 96/60
[2024-10-23] MEDS: ProAmatine 15 MG PO ×3 (05:50→16:54)
[2024-10-23 06:00] VITALS: BMI 26.6
[2024-10-23 06:06] LABS: Magnesium 2.2 mg/dl (1.6-2.3); Potassium 4.6 mmol/L (3.5-5.1)
[2024-10-23 07:28] VITALS: BP 97/61
[2024-10-23] MEDS: MIRALAX PO (08:18)
[2024-10-23] MEDS: ELIQUIS 5 MG PO ×2 (10:50→20:38)
[2024-10-23] MEDS: DEMADEX 60 MG PO ×2 (10:50→16:54)
[2024-10-23] MEDS: AMOXIL 500 MG PO (10:52)
[2024-10-23] MEDS: PACERONE 200 MG PO (10:52)
[2024-10-23] MEDS: LIPITOR 40 MG PO (10:52)
[2024-10-23] MEDS: PROSCAR 5 MG PO (10:52)
[2024-10-23] MEDS: KCL 40 MEQ PO (10:52)
[2024-10-23] MEDS: LOPRESSOR 12.5 MG PO ×2 (10:53→20:36)
[2024-10-23] MEDS: NON-FORMULARY ITEM 80 MG PO (10:54)
--- NOTE | 2024-10-23 11:25 | W.PN.HOSP.TC ---
Today's Communication/Plan
-
add on BMP
continue Torsemide
stop antibiotics
continue higher dose midodrine + metoprolol
appreciate consultants
Assessment / Plan
Assessment / Plan
Mr. 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
chronic woodward catheter presents to the ER for weakness and outpatient labs showing worsening renal function.
BARBARA on CKD stage 3b
- renal US negative
- s/p IVF administration
- BUN and creatinine up on 10/18, now overloaded; s/p IV lasix with mild improvement.
- EMBEDDED LINUX ENGINEER Torsemide resumed on 10/19 and labs stable
- GOC discussions had. Patient would not want dialysis. Hospice discussed but given improvement and stable labs on home diuretics, decision made to pursue palliative care which would continue to allow for rehab and lab checks. Patient and family
clear they would not want further admissions and if patient decompensated at home, they would transition to hospice instead of bringing him to the ER.
Hyponatremia
-continue Torsemide and fluid restriction
-s/p Tolvaptan with good response
-Na 130
-will recheck today (K and mag were checked)
Atrial Tachycardia
-patient in fast atrial rate 100's-120's
-patient seems to be responding to Metoprolol
-continue Metop with increased midodrine dosing
paroxysmal atrial Fibrillation s/p recent cardioversion
- EMBEDDED LINUX ENGINEER Eliquis
- EMBEDDED LINUX ENGINEER Amiodarone
Hypokalemia
-takes daily 40MEQ K at home
-decrease to 20mEQ daily given slowed kidney function
Chronic HFmrEF
- Resume Torsemide- discussed with Renal
- monitor I/Os, weights, lytes
- CBC cards following
Large R chronic pleural effusion
-s/p thoracentesis on 10/18
Hx of chronic amyloidosis with amyloid cardiomyopathy
- on Tafamidis 80mg daily (20mg x 4 tablets) - confirmed with pharmacy
Generalized malaise and weakness
- PT/OT - Acute rehab recommended. PMR consult appreciated
HLD - EMBEDDED LINUX ENGINEER Statin
BPH
Chronic Urinary Retention with Woodward
- EMBEDDED LINUX ENGINEER Finasteride
- woodward was exchanged in ER
Multi-drug resistant Enterococcus faecalis CAUTI
-completed 7 day course antibiotics
Neuropathy
- hold EMBEDDED LINUX ENGINEER Gabapentin for now in setting of renal failure
Orthostatic Hypotension - EMBEDDED LINUX ENGINEER Midodrine
Stage 2 sacral pressure injury POA
DVT ppx: Eliquis
code: DNR/DNI confirmed with family
Anticipated Discharge: 24 - 48 hours
Subjective/Interval History
-
Date of Service: October 23, 2024
feeling well this morning, no new complaints
Objective Data
-
Labs:
Laboratory Results
10/23/24
05:00
Potassium 4.6
Vital Signs:
Vital Signs
Temp Pulse Resp BP Pulse Ox
97.4 F 120 20 97/61 97
10/23/24 07:28 10/23/24 10:53 10/23/24 07:28 10/23/24 07:28 10/23/24 07:28
I&O
10/22/24 10/23/24 10/24/24
06:59 06:59 06:59
Intake Total 1680 / 1680 1060 / 1060
Output Total 3775 / 3775 1450 / 1450
Balance -2094 / -2094 -390 / -390
Review of Systems
-
History Source: Patient
All other systems: Reviewed and negative
Physical Exam
-
General: No Apparent Distress
HEENT: Normocephalic and Atraumatic
Respiratory: Negative Wheezes
Cardiac: Regular Rhythm and S1/S2; Negative JVD
GI: Soft and Nontender
Genito-urinary: No Costovertebral Tender
Musculoskeletal: No Edema
Neuro: AO x 3
Psych: Calm
Data Reviewed
-
Diagnostic Radiology: Report Reviewed by me
Labs: Labs Reviewed by me
[2024-10-23 11:55] VITALS: BP 95/60
[2024-10-23 12:01] LABS: Blood Urea Nitrogen 112 mg/dl (9-20); Calcium 8.8 mg/dl (8.4-10.2); Carbon Dioxide 17 mmol/L (22-30); Chloride 93 mmol/L (98-107); Estimated Creatinine Clearance 24 ml/min; Glucose 125 mg/dl (70-99); Sodium 128 mmol/L (135-145); eGFR 23.98
--- NOTE | 2024-10-23 14:50 | W.PN.CD ---
Today's Communication / Plan
-
HRs somewhat improved on metoprolol 12.5 mg twice daily
Continue midodrine 15 mg 3 times daily
Impression / Plan
-
Afib - paroxysmal.
- s/p PVI 01/20/2023, YANI/DCCV 09/17/24 with Amiodarone loading (400mg BID x 2 weeks then 200mg daily since 09/17/24).
- intermitent svt, could be afib, then sinus while here on tele. In the last 24 hours more persistent, asx but bp is soft
-he just had a cardioversion and is fully loaded on amiodarone, don't see that repeating this will help at this time
-continue Amiodarone to help with rate control, bp limits bb titration, DIGOXIN CONTRAINDICATED with cardiac amyloidosis
- Continue midodrine 15 mg 3 times daily and metoprolol tartrate 12.5 mg twice daily
-Eliquis 5mg bid, continue.
BARBARA - acute on chronic.
-Nephrology following.
-stable at ~ 177lb
-BUN and Cr stabilizing
-Back on torsemide
-he never wants HD
-he would like to pursue palliative care and then transition to hospice at home if he ever needed another admission, he never plans on returning to the hospital
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
- back on Torsemide 60mg bid
- monitor daily weights, I&Os.
- weight 175 lbs at home when presented in BARBARA (but had also been on escalating doses metolazone)--establishing new 'dry' weight.
- follows with Dr. Cadet at [facility] for ATTR and HF.
Right pleural effusion:
-s/p thora
Amyloidosis - chronic.
- followed by Dr. Cadet at [facility].
- continue Tafamidis.
CAD - stable w/o angina.
- s/p CABG x 3 in 2021.
- continue medical therapy.
BiV ICD - [employer], stable with normal function.
- no discharges.
- followed in our device clinic and at [facility].
Subjective;
He is without complaint, no dizziness sob or palpitations
Physical Exam
Vital Signs/Labs
Vital Signs
Temp Pulse Resp BP Pulse Ox
97.4 F 81 18 95/60 97
10/23/24 11:55 10/23/24 11:55 10/23/24 11:55 10/23/24 11:55 10/23/24 14:30
10/22/24 10/23/24 10/24/24
06:59 06:59 06:59
Actual Weight 176 lb 9 oz 180 lb
10/19/24 09:09
10/23/24 05:00
Magnesium 2.2 mg/dl (1.6-2.3) 10/23/24 05:00
Physical Exam
Constitutional: No acute distress and Comfortable
EENT: Other (icteric)
Cardiovascular: Rhythm/rate is irregular and Pedal edema present
Respiratory: Respiratory effort normal
Data Reviewed
-
Date of Service: October 23, 2024
Medical Decision Making: Reviewed Test Results, Independent Historian Assessment, Test Interpretation and Review of Case with other Provider
EKG: Tracing Personally Visualized and interpreted
Echo: Report Reviewed by me
Labs: Labs Reviewed by me
[2024-10-23 15:00] VITALS: BP 97/67
--- NOTE | 2024-10-23 16:28 | W.PN.NEPH.PH ---
Today's Communication / Plan
-
follow lab s
Assessment/Plan
-
IMP:
BARBARA
CKD 3b
Hypotension on midodrine
Atrial fibrillation pacemaker
Lower extremity erythema
Anemia of chronic disease
Hyponatremia
Hypokalemia
Cardiac amyloid
Urinary retention chronic Woodward
Plan:
cr up today at 2.7
azotemia improving still
Follow weights-seem stable
tachy-med adjustment per cards
cont on TOrsemide
Bp soft on high dose midodrine
abx for UTI, chr woodward
monitor gap met acidosis
sodium down to 128-consider samsca if low again tomorrow
Previous discussion with daughter by Dr Narvaez in regards to dialysis
Patient declining dialysis
Ongoing decision for palliative or hospice care
looking for SNF
-
-
Date of Service: October 23, 2024
CC / HPI / ROS
-
Chief Complaint:
BARBARA
History of Present Illness:
BARBARA/Cr d minimal improvement
cr up at 2.7, BUN 112 down, bicarb low 17
Nonoliguric, wt stable
tachycardic
BP low but stable
Review of Systems:
no CP/SOB at rest
Labs
-
Labs:
WBC 7.5 10^3/uL (4.8-10.8) 10/19/24 09:09
RBC 2.84 10^6/uL (4.70-6.10) L 10/19/24 09:09
Hgb 8.1 g/dL (13.0-18.0) L 10/19/24 09:09
Hct 24.5 % (39.0-52.0) L 10/19/24 09:09
Plt Count 115 10^3/uL (130-400) L 10/19/24 09:09
Sodium 128 mmol/L (135-145) L 10/23/24 05:00
Potassium 4.6 mmol/L (3.5-5.1) 10/23/24 05:00
Chloride 93 mmol/L (98-107) L 10/23/24 05:00
Carbon Dioxide 17 mmol/L (22-30) L 10/23/24 05:00
BUN 112 mg/dl (9-20) H* 10/23/24 05:00
Creatinine 2.7 mg/dL (0.7-1.3) H 10/23/24 05:00
eGFR 23.98 10/23/24 05:00
Glucose 125 mg/dl (70-99) H 10/23/24 05:00
Calcium 8.8 mg/dl (8.4-10.2) 10/23/24 05:00
Albumin 4.7 g/dl (3.5-5.0) 10/14/24 15:57
Physical Exam
-
Vital Signs:
Vital Signs
Temp Pulse Resp BP Pulse Ox
97.4 F 81 18 95/60 97
10/23/24 11:55 10/23/24 11:55 10/23/24 11:55 10/23/24 11:55 10/23/24 14:30
Cardiovascular:: Regular rate and rhythm (tachy)
Lung Excursion:: Normal (decreased BS)
Abdomen:: Nontender and Soft
Bowel Sounds:: Normal
Extremity Edema:: None: Bilateral:
Woodward Catheter: Yes
[2024-10-23 19:29] VITALS: BP 107/76
[2024-10-23] MEDS: DESENEX/MITRAZOL/ZEASORB 1 APPLIC TOPICAL (20:35)
[2024-10-23 23:30] VITALS: BP 90/58
[2024-10-24 03:53] VITALS: BP 93/63
[2024-10-24] MEDS: ProAmatine 15 MG PO ×2 (05:42→11:55)
--- NOTE | 2024-10-24 05:55 | PTCARENOTE ---
Pts HRs 110s -120s AV paced with very wide QRS. House FIRE PREVENTION CAPTAIN aware, no new orders.
[2024-10-24 06:00] VITALS: BMI 26.8
[2024-10-24 06:17] LABS: Blood Urea Nitrogen 119 mg/dl (9-20); Calcium 8.4 mg/dl (8.4-10.2); Carbon Dioxide 15 mmol/L (22-30); Chloride 93 mmol/L (98-107); Estimated Creatinine Clearance 22 ml/min; Glucose 110 mg/dl (70-99); Potassium 5.2 mmol/L (3.5-5.1); Sodium 124 mmol/L (135-145); eGFR 21.13
[2024-10-24 07:05] VITALS: BP 96/66
[2024-10-24] MEDS: ELIQUIS 5 MG PO (07:44)
[2024-10-24] MEDS: PACERONE 200 MG PO (07:44)
[2024-10-24] MEDS: PROSCAR 5 MG PO (07:44)
[2024-10-24] MEDS: LIPITOR 40 MG PO (07:44)
[2024-10-24] MEDS: LOPRESSOR 12.5 MG PO (07:44)
[2024-10-24] MEDS: DEMADEX 60 MG PO (07:45)
[2024-10-24] MEDS: NON-FORMULARY ITEM 80 MG PO (07:45)
[2024-10-24] MEDS: DESENEX/MITRAZOL/ZEASORB 1 APPLIC TOPICAL (07:51)
[2024-10-24 11:05] VITALS: BP 92/60
--- NOTE | 2024-10-24 11:23 | W.PN.HOSP.TC ---
Today's Communication/Plan
-
see plan
Assessment / Plan
Assessment / Plan
Mr. 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
chronic woodward catheter presents to the ER for weakness and outpatient labs showing worsening renal function.
BARBARA on CKD stage 3b
- renal US negative
- s/p IVF administration
- BUN and creatinine up on 10/18, now overloaded; s/p IV lasix with mild improvement.
- COLLECTION SYSTEMS CONSULTANT Torsemide resumed on 10/19 and labs stable
- GOC discussions had. Patient would not want dialysis. Hospice discussed but given improvement and stable labs on home diuretics, decision was made to pursue palliative care which would continue to allow for rehab and lab checks. Patient and
family clear they would not want further admissions and if patient's clinical status worsened at home. At this point patient now with difficulty to control atrial arrhythmia and worsening labs. Revisiting GOC discussions
Hyponatremia
-continue Torsemide and fluid restriction
-s/p Tolvaptan with good response
-Na down to 124 this morning, discussing with renal; GOC discussions as above
Atrial Tachycardia
-patient in fast atrial rate 100's-120's
-continue Metop with increased midodrine dosing
paroxysmal atrial Fibrillation s/p recent cardioversion
- COLLECTION SYSTEMS CONSULTANT Eliquis
- COLLECTION SYSTEMS CONSULTANT Amiodarone
Hypokalemia
-now K 5.2 with rising creatinine
-stop standing potassium
Chronic HFmrEF
- Resumde Torsemide- discussed with Renal
- monitor I/Os, weights, lytes
- CBC cards following
Large R chronic pleural effusion
-s/p thoracentesis on 10/18
Hx of chronic amyloidosis with amyloid cardiomyopathy
- on Tafamidis 80mg daily (20mg x 4 tablets) - confirmed with pharmacy
Generalized malaise and weakness
- PT/OT - Acute rehab recommended. PMR consult appreciated
- need to control heart rates prior to discharge to rehab
HLD - COLLECTION SYSTEMS CONSULTANT Statin
BPH
Chronic Urinary Retention with Woodward
- COLLECTION SYSTEMS CONSULTANT Finasteride
- woodward was exchanged in ER
Multi-drug resistant Enterococcus faecalis CAUTI
-completed 7 day course antibiotics
Neuropathy
- hold COLLECTION SYSTEMS CONSULTANT Gabapentin for now in setting of renal failure
Orthostatic Hypotension - COLLECTION SYSTEMS CONSULTANT Midodrine
Stage 2 sacral pressure injury POA
DVT ppx: Eliquis
code: DNR/DNI confirmed with family
Anticipated Discharge: 24 - 48 hours
Subjective/Interval History
-
Date of Service: October 24, 2024
feeling tired this morning, sleeping
Objective Data
-
Labs:
Laboratory Results
10/24/24
05:07
Sodium 124 L
Potassium 5.2 H
Chloride 93 L
Carbon Dioxide 15 L
BUN 119 H*
Creatinine 3.0 H
Glucose 110 H
Calcium 8.4
Vital Signs:
Vital Signs
Temp Pulse Resp BP Pulse Ox
97.2 F 126 16 96/66 97
10/24/24 07:05 10/24/24 07:05 10/24/24 07:05 10/24/24 07:05 10/24/24 08:30
I&O
10/23/24 10/24/24 10/25/24
06:59 06:59 06:59
Intake Total 1060 / 1060 1077 / 1077
Output Total 1450 / 1450 850 / 850
Balance -390 / -390 227 / 227
Review of Systems
-
History Source: Patient
All other systems: Reviewed and negative
Physical Exam
-
General: No Apparent Distress
HEENT: Normocephalic and Atraumatic
Respiratory: Negative Wheezes
Cardiac: Regular Rhythm and S1/S2
GI: Soft and Nontender
Genito-urinary: No Costovertebral Tender
Musculoskeletal: No Edema
Neuro: AO x 3
Psych: Calm
Data Reviewed
-
Diagnostic Radiology: Report Reviewed by me
Labs: Labs Reviewed by me
--- NOTE | 2024-10-24 12:59 | W.PN.UPDATE ---
Update Note
Progress Note Update
Further GOC discussions had with patient's on phone, patient and family at bedside. Given declining renal status, difficult to control tachycardia and increased shortness of breath today, decision is made for hospice.
stop further lab checks
Morphine 1mg IV x 1 now and PRN --> increase dose if necessary
hospice team to assess patient tomorrow to help determine disposition
[2024-10-24] MEDS: MORPHINE SULFATE 1 MG IV (13:00)
[2024-10-24] MEDS: DILAUDID 0.5 MG IV (14:15)
[2024-10-24 15:05] VITALS: BP 101/71
--- NOTE | 2024-10-24 15:25 | W.PN.UPDATE ---
Addendum entered and electronically signed by Alley Landers MD 10/24/24 16:16:
*discussed anti-emetics with pharmacy and IM Tigan ordered
Original Note:
Update Note
Progress Note Update
patient with vomiting post morphine and also post dilaudid without significant improvement in symptoms
given renal disease, will trial fentany PRN
His QTc is prolonged so limited with anti-emetics. will trial gingerale and can consider low dose ativan or IM Tigan if symptoms persist and are severe. l
--- NOTE | 2024-10-24 15:56 | W.PN.NEPH.PH ---
Today's Communication / Plan
-
comfort priority
cont supportive care
Assessment/Plan
-
IMP:
BARBARA
CKD 3b
Hypotension on midodrine
Atrial fibrillation pacemaker
Lower extremity erythema
Anemia of chronic disease
Hyponatremia
Hypokalemia
Cardiac amyloid
Urinary retention chronic Woodward
Plan:
cr up today at 3 and worsening azotemia
worsening hyponaremia
tachy-med adjustment per cards
hold on Torsemide today for nasuea
Bp soft on high dose midodrine
abx for UTI, chr woodward
monitor gap met acidosis
not much can be done renal stand point
Previous discussion with daughter by Dr Narvaez in regards to dialysis
Patient declining dialysis
Primary spoke with family and pt today likely move on with hospice
-
-
Date of Service: October 24, 2024
CC / HPI / ROS
-
Chief Complaint:
BARBARA
History of Present Illness:
BARBARA/Cr d minimal improvement
cr up at 3, BUN 119 up, bicarb low 15
sodium worse to 124
Nonoliguric, wt stable
tachycardic
BP low but stable
Review of Systems:
no CP/c/o SOB at rest
nausea
Labs
-
Labs:
WBC 7.5 10^3/uL (4.8-10.8) 10/19/24 09:09
RBC 2.84 10^6/uL (4.70-6.10) L 10/19/24 09:09
Hgb 8.1 g/dL (13.0-18.0) L 10/19/24 09:09
Hct 24.5 % (39.0-52.0) L 10/19/24 09:09
Plt Count 115 10^3/uL (130-400) L 10/19/24 09:09
Sodium 124 mmol/L (135-145) L 10/24/24 05:07
Potassium 5.2 mmol/L (3.5-5.1) H 10/24/24 05:07
Chloride 93 mmol/L (98-107) L 10/24/24 05:07
Carbon Dioxide 15 mmol/L (22-30) L 10/24/24 05:07
BUN 119 mg/dl (9-20) H* 10/24/24 05:07
Creatinine 3.0 mg/dL (0.7-1.3) H 10/24/24 05:07
eGFR 21.13 10/24/24 05:07
Glucose 110 mg/dl (70-99) H 10/24/24 05:07
Calcium 8.4 mg/dl (8.4-10.2) 10/24/24 05:07
Albumin 4.7 g/dl (3.5-5.0) 10/14/24 15:57
Physical Exam
-
Vital Signs:
Vital Signs
Temp Pulse Resp BP Pulse Ox
96.6 F L 118 18 92/60 99
10/24/24 11:05 10/24/24 11:05 10/24/24 11:05 10/24/24 11:05 10/24/24 11:05
Cardiovascular:: Regular rate and rhythm (tachy)
Lung Excursion:: Normal (decreased BS)
Abdomen:: Nontender and Soft
Bowel Sounds:: Normal
Extremity Edema:: None: Bilateral:
Woodward Catheter: Yes
[2024-10-24] MEDS: DEMADEX PO (16:19)
[2024-10-24] MEDS: TIGAN 200 MG IM (16:21)
--- NOTE | 2024-10-24 16:45 | PTCARENOTE ---
Pt received in bed @ 0700. AAOx3. Tachypneic but denying shortness of breath. Right side diminished. Pt with increasing shortness of breath and tachypnea, RR 20s - 30s. HR 100s - 130s. AV paced on phototypesetting equipment monitor. Dyspneic at rest. Stating he is
unable to catch his breath. Discussed with Dr. Landers. New order for Morphine 1mg IV acknowledged and administered. Pt stated no relief of symptoms. Dry heaving observed. Dr. Landers notified. New order for Dilaudid 0.5mg IV acknowledged and
administered. Pt with continuous vomiting. EKG obtained for QTc monitoring. Morphine and Dilaudid discontinued. New order for Fentanyl 25mcg IV Q2H PRN and Tigan 200mg IM Q6H PRN. Tigan administered. Med/Surg orders in place.
[2024-10-24 17:36] VITALS: BP 106/71
[2024-10-24] MEDS: ProAmatine PO (18:10)
[2024-10-24] MEDS: ZOFRAN 4 MG IV (21:05)
[2024-10-24] MEDS: ATIVAN 0.25 MG IV (21:17)
[2024-10-24] MEDS: OFIRMEV 100 IV (21:45)
[2024-10-24] MEDS: ELIQUIS PO (21:53)
[2024-10-24] MEDS: LOPRESSOR PO (21:53)
[2024-10-24] MEDS: DESENEX/MITRAZOL/ZEASORB TOPICAL (21:54)
[2024-10-24 23:00] VITALS: BP 112/73
[2024-10-25] MEDS: OFIRMEV 100 IV (02:28)
[2024-10-25] MEDS: ATIVAN 0.25 MG IV (02:28)
[2024-10-25] MEDS: ProAmatine 15 MG PO (06:07)
[2024-10-25 07:50] VITALS: BP 78/48
--- NOTE | 2024-10-25 09:18 | HOSPNOTE ---
Spoke with Attending and the patient will be admitted inpatient hospice today. Family is at bedside and a hospice nurse is on her way to speak with family and will admit inpatient hospice. Admissions was called to get the chart ready.
[2024-10-25] MEDS: DEMADEX 60 MG PO (09:33)
[2024-10-25] MEDS: PROSCAR 5 MG PO (09:33)
[2024-10-25] MEDS: PACERONE 200 MG PO (09:33)
[2024-10-25] MEDS: ELIQUIS 5 MG PO (09:34)
[2024-10-25] MEDS: LOPRESSOR PO (09:37)
[2024-10-25] MEDS: MIRALAX PO (09:37)
[2024-10-25] MEDS: NON-FORMULARY ITEM 80 MG PO (09:38)
[2024-10-25] MEDS: DESENEX/MITRAZOL/ZEASORB TOPICAL (09:38)
[2024-10-25] MEDS: OFIRMEV IV (10:04)
--- NOTE | 2024-10-25 10:43 | HOSPNOTE ---
Met with two daughter, and patient. Hospice consents signed. Patient meets GIP level of care as patient is SOB, anxious and had period of nausea and vomiting yesterday. He will require IV medications for symptom management at this time
--- NOTE | 2024-10-25 10:51 | W.PN.HOSP.TC ---
Today's Communication/Plan
-
GIP hospice today
Assessment / Plan
Assessment / Plan
Mr. 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
chronic woodward catheter presents to the ER for weakness and outpatient labs showing worsening renal function.
BARBARA on CKD stage 3b
- renal US negative
- s/p IVF administration
- BUN and creatinine up on 10/18, now overloaded; s/p IV lasix with mild improvement.
- SLAT PICKLER Torsemide resumed on 10/19 and labs stable
- GOC discussions had. Patient would not want dialysis. Hospice discussed but given improvement and stable labs on home diuretics, decision was made to pursue palliative care which would continue to allow for rehab and lab checks. Patient and
family clear they would not want further admissions and if patient's clinical status worsened at home. At this point patient now with difficulty to control atrial arrhythmia and worsening labs. Revisiting GOC discussions
Hyponatremia
-continue Torsemide and fluid restriction
-s/p Tolvaptan with good response
-Na down to 124 this morning, discussing with renal; GOC discussions as above
Atrial Tachycardia
-patient in fast atrial rate 100's-120's
-continue Metop with increased midodrine dosing
paroxysmal atrial Fibrillation s/p recent cardioversion
- SLAT PICKLER Eliquis
- SLAT PICKLER Amiodarone
Hypokalemia
-now K 5.2 with rising creatinine
-stop standing potassium
Chronic HFmrEF
- Resumde Torsemide- discussed with Renal
- monitor I/Os, weights, lytes
- CBC cards following
Large R chronic pleural effusion
-s/p thoracentesis on 10/18
Hx of chronic amyloidosis with amyloid cardiomyopathy
- on Tafamidis 80mg daily (20mg x 4 tablets) - confirmed with pharmacy
Generalized malaise and weakness
- PT/OT - Acute rehab recommended. PMR consult appreciated
- need to control heart rates prior to discharge to rehab
HLD - SLAT PICKLER Statin
BPH
Chronic Urinary Retention with Woodward
- SLAT PICKLER Finasteride
- woodward was exchanged in ER
Multi-drug resistant Enterococcus faecalis CAUTI
-completed 7 day course antibiotics
Neuropathy
- hold SLAT PICKLER Gabapentin for now in setting of renal failure
Orthostatic Hypotension - SLAT PICKLER Midodrine
Stage 2 sacral pressure injury POA
DVT ppx: Eliquis
code: DNR/DNI confirmed with family
Dispo: GIP hospice sign on today
Anticipated Discharge: Today
Subjective/Interval History
-
Date of Service: October 25, 2024
family has agreed for hospice
Objective Data
-
Vital Signs:
Vital Signs
Temp Pulse Resp BP Pulse Ox
97.6 F 88 22 78/48 96
10/25/24 07:50 10/25/24 07:50 10/25/24 07:50 10/25/24 07:50 10/25/24 07:50
I&O
10/24/24 10/25/24 10/26/24
06:59 06:59 06:59
Intake Total 1077 / 1077 400 / 400
Output Total 850 / 850 150 / 150
Balance 227 / 227 250 / 250
Physical Exam
-
General: Respiratory Distress
HEENT: Normocephalic and Atraumatic
Respiratory: Negative Wheezes
Cardiac: Regular Rhythm and S1/S2
GI: Soft and Nontender
Genito-urinary: No Costovertebral Tender
Neuro: Awake
Psych: Calm
Data Reviewed
-
Total Time Spent with Patient (in minutes): 41
Labs: Labs Reviewed by me
--- NOTE | 2024-10-25 10:53 | W.DS.TRANS ---
DC Summary - Ethanol Quality Leader
-
Discharge Instructions:
Sleep Apnea Risk Intermediate
Instructions:
Stand-Alone Forms:
Changes to Home Medications: No
Discharge Medications:
DC Medications w/original date entered in [employer]
None-inpatient hospice
Home Medication Changes
Pending Results: No
Total time spent discharging patient (in min): 42
--- NOTE | 2024-10-25 10:55 | HOSPNOTE ---
Patient has a defibrillator, [employer] called to turn defibrillator off. A operations support representative will be contacting the hospice nurse.
--- NOTE | 2024-10-25 11:02 | PTOTSP ---
Reviewed chart and noted plan for hospice. PT will sign off.
--- NOTE | 2024-10-25 11:11 | W.PN.UPDATE ---
Update Note
Progress Note Update
Patient transitioning to hospice. He has a [employer] BIV ICD, will deactivate the ICD lead.
I will sign off.
--- NOTE | 2024-10-25 11:39 | W.CAR.ICD ---
ICD Inactivation Request
-
Plastic Straightening Roll Operator Notified: [employer]
The above vendor has been contacted to inactivate the patient's Implantable Cardioverter Defibrillator.
== END 2024-10-25 11:03 | disposition hospice, inpatient (51) | DRG 683 ==
LOC: 2 NORTH 19:02
PROVIDERS: Radiology Diagnostic Radiology; ADMITTING PHYSICIAN Student in an Organized Health Care Education/Training Program; ATTENDING PHYSICIAN Internal Medicine; CONSULT PHYSICIAN Physical Medicine & Rehabilitation; EMERGENCY PHYSICIAN Emergency Medicine; FAMILY PHYSICIAN Student in an Organized Health Care Education/Training Program; OTHER PHYSICIAN Internal Medicine Cardiovascular Disease; OTHER PHYSICIAN Psychiatry & Neurology Psychiatry; OTHER PHYSICIAN Specialist
PROC: 0W993ZZ Drainage of Right Pleural Cavity, Percutaneous Approach (ICD-10-PCS; 2024-10-18)
DX: N17.9 Acute kidney failure, unspecified (principal); E85.4 Organ-limited amyloidosis; I13.0 Hypertensive heart and chronic kidney disease with heart failure and stage 1 through stage 4 chronic kidney disease, or unspecified chronic kidney disease; N39.0 Urinary tract infection, site not specified; T83.518A Infection and inflammatory reaction due to other urinary catheter, initial encounter; E87.1 Hypo-osmolality and hyponatremia; I50.22 Chronic systolic (congestive) heart failure; Z16.24 Resistance to multiple antibiotics; I47.19 Other supraventricular tachycardia; I48.19 Other persistent atrial fibrillation; I48.92 Unspecified atrial flutter; I43 Cardiomyopathy in diseases classified elsewhere; N18.32 Chronic kidney disease, stage 3b; E86.0 Dehydration; E87.6 Hypokalemia; E78.5 Hyperlipidemia, unspecified; N40.0 Benign prostatic hyperplasia without lower urinary tract symptoms; Y84.6 Urinary catheterization as the cause of abnormal reaction of the patient, or of later complication, without mention of misadventure at the time of the procedure; G62.9 Polyneuropathy, unspecified; I95.1 Orthostatic hypotension; L89.152 Pressure ulcer of sacral region, stage 2; B95.2 Enterococcus as the cause of diseases classified elsewhere; I25.10 Atherosclerotic heart disease of native coronary artery without angina pectoris; Z95.1 Presence of aortocoronary bypass graft; D63.1 Anemia in chronic kidney disease; I44.7 Left bundle-branch block, unspecified; J98.4 Other disorders of lung; Z87.891 Personal history of nicotine dependence; G47.33 Obstructive sleep apnea (adult) (pediatric); I73.00 Raynaud's syndrome without gangrene; M10.9 Gout, unspecified; F10.11 Alcohol abuse, in remission; G47.00 Insomnia, unspecified; Z96.659 Presence of unspecified artificial knee joint; M19.90 Unspecified osteoarthritis, unspecified site; Z79.01 Long term (current) use of anticoagulants; Z66 Do not resuscitate; D69.6 Thrombocytopenia, unspecified; F43.21 Adjustment disorder with depressed mood; I34.0 Nonrheumatic mitral (valve) insufficiency; Z79.899 Other long term (current) drug therapy; Z87.440 Personal history of urinary (tract) infections
CPT/HCPCS: 88305; 32555; 51702; 71045; 71046; 76775; 80048; 80053; 81003; 81015; 82150; 82550; 82570; 82945; 82962; 83615; 83735; 83935; 83986; 84155; 84157; 84300; 84478; 85025; 85027; 87015; 87070; 87077; 87086; 87102; 87116; 87186; 87205; 87206; 87502; 87811; 88112; 89051; 93005; 93288; 96374; 97110; 97116; 97163; 97166; 97535; 99285

== ENCOUNTER 2024-10-25 11:08 | Inpatient (IN) | payer OTHER, SELFPAY ==
--- NOTE | 2024-10-25 10:56 | ADM.HSP ---
Admission - Hospice
History of Present Illness
73 y/o M hx of progressive renal failure, failure of diuretics to manage volume overload without causing worsening BARBARA. Offered dialysis during hospitalization 10/14 to 10/25 - patient declined HD and family opted for hospice care.
Reason for Hospice Admission
progressive SOB, pain, nausea from progressive renal failure
Review of Systems
Unable to obtain full review of systems at this time due to: Acuity
Physical Exam
General: Respiratory Distress
Respiratory: Clear to Auscultation
Cardiology: Irregular Rhythm
GI: Soft
Musculoskeletal: Edema, Right Lower Extremity and Edema, Left Lower Extremity
Neuro: Awake
Psych: Calm
Assessment/Medication Plan
Assessment:
BARBARA on CKD stage 3b
Hyponatremia
Atrial Tachycardia
paroxysmal atrial Fibrillation s/p recent cardioversion
Hypokalemia
Chronic HFmrEF
Large R chronic pleural effusion s/p thoracentesis on 10/18
Hx of chronic amyloidosis with amyloid cardiomyopathy
Generalized malaise and weakness
HLD
BPH
Chronic Urinary Retention with Ocampo
Multi-drug resistant Enterococcus faecalis CAUTI
Neuropathy
Orthostatic Hypotension
Stage 2 sacral pressure injury POA
Plan:
sign onto [facility]IP hospice
nausea with morphine, possibly dilaudid therefore will utilize Fentanyl prn to start
d/w hospice service.
Data Reviewed
Labs: Labs Reviewed by me
--- NOTE | 2024-10-25 11:29 | CM ---
Reviewed the chart notes. Patient transitioned onto [facility] Hospice services. Patient resides with spouse in a one story home with three steps to enter. DME in home includes a rolling walker, cane, and CPAP. CM continues to be available to
patient/family.
Plan: [facility] Hospice.
[2024-10-25] MEDS: ATIVAN 1 MG IV ×2 (15:04→19:40)
[2024-10-25 20:27] VITALS: BP 82/56
[2024-10-25] MEDS: SUBLIMAZE 25 MCG IV (21:23)
[2024-10-26] MEDS: ATIVAN 1 MG IV ×5 (00:26→22:54)
[2024-10-26] MEDS: SUBLIMAZE 25 MCG IV ×9 (00:27→22:52)
[2024-10-26 07:56] VITALS: BP 107/77
[2024-10-26] MEDS: NSS (PRESERVATIVE FREE) 0.5 ML IV ×3 (10:06→22:54)
--- NOTE | 2024-10-26 11:14 | HOSPNOTE ---
Long discussion with family and patient about pain management. Patient appears very uncomfortable complains of shortness of breath and pain however does not wish to take pain medication. Family shared that patient was a recovering addict and has
some reservations about medications and will most likely not ask but he is fine to accept medications if nurse feels he is uncomfortable. He is clearly uncomfortable and needs medications. Patient meets inpatient criteria for pain and shortness of
breath and will be seen daily by hospice nurse.
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
[2024-10-26] MEDS: ROBINUL 0.2 MG IV (12:23)
[2024-10-26] MEDS: SUBLIMAZE 100 IV (13:20)
--- NOTE | 2024-10-26 13:44 | CM ---
Patient remains on Hospice; CM met briefly with family at bedside to offer support if needed
--- NOTE | 2024-10-26 13:54 | W.PN.HOSP.TC ---
Today's Communication/Plan
-
maximize comfort
Assessment / Plan
Assessment / Plan
Assessment:
BARBARA on CKD stage 3b
Hyponatremia
Atrial Tachycardia
paroxysmal atrial Fibrillation s/p recent cardioversion
Hypokalemia
Chronic HFmrEF
Large R chronic pleural effusion s/p thoracentesis on 10/18
Hx of chronic amyloidosis with amyloid cardiomyopathy
Generalized malaise and weakness
HLD
BPH
Chronic Urinary Retention with Ocampo
Multi-drug resistant Enterococcus faecalis CAUTI
Neuropathy
Orthostatic Hypotension
Stage 2 sacral pressure injury POA
Plan:
sign onto [facility] hospice
nausea with morphine, possibly Dilaudid therefore on Fentanyl prn. Now progressive to step 2 Fentanyl drip
d/w hospice service and RN. D/w Family.
Anticipated Discharge: Within 24 hours
Subjective/Interval History
-
Date of Service: October 26, 2024
more air hunger this AM, now transitioned to Fentanyl drip
Objective Data
-
Vital Signs:
Vital Signs
Temp Pulse Resp BP Pulse Ox
97.6 F 125 18 107/77 92
10/26/24 07:56 10/26/24 07:56 10/26/24 07:56 10/26/24 07:56 10/26/24 07:56
I&O
10/25/24 10/26/24 10/27/24
06:59 06:59 06:59
Intake Total 680 / 680
Output Total 400 / 400
Balance 280 / 280
Physical Exam
-
General: Respiratory Distress
HEENT: Normocephalic and Atraumatic
Respiratory: Negative Wheezes
Cardiac: Regular Rhythm and S1/S2
Psych: Calm
Data Reviewed
-
Total Time Spent with Patient (in minutes): 41
Labs: Labs Reviewed by me
[2024-10-26 19:41] VITALS: BP 96/70
[2024-10-27] MEDS: SUBLIMAZE 25 MCG IV ×3 (00:57→06:12)
[2024-10-27] MEDS: SUBLIMAZE 100 MCG IV ×2 (03:54→11:52)
[2024-10-27] MEDS: ATIVAN 1 MG IV ×2 (08:00→15:56)
[2024-10-27] MEDS: NSS (PRESERVATIVE FREE) 0.5 ML IV ×2 (08:01→15:57)
[2024-10-27] MEDS: SUBLIMAZE 50 MCG IV ×2 (08:03→15:55)
--- NOTE | 2024-10-27 11:45 | HOSPNOTE ---
Patient appears much more comfortable then yesterday, patient has been receiving IV pushes and is now on a drip. Family is at bedside emotional support provided. Patient still has periods of agitation per family however when medicated with ativan
appears much calmer. Due to pain patient was started on a fentanyl drip. Patient continues to be inpatient appropriate for management of pain and agitation requiring IV administration. Patient will be seen daily.
[2024-10-27] MEDS: ROBINUL 0.2 MG IV ×2 (11:50→21:19)
[2024-10-27 12:07] VITALS: BP 91/76
--- NOTE | 2024-10-27 14:37 | W.PN.HOSP.TC ---
Today's Communication/Plan
-
maximize comfort
Assessment / Plan
Assessment / Plan
Assessment:
BARBARA on CKD stage 3b
Hyponatremia
Atrial Tachycardia
paroxysmal atrial Fibrillation s/p recent cardioversion
Hypokalemia
Chronic HFmrEF
Large R chronic pleural effusion s/p thoracentesis on 10/18
Hx of chronic amyloidosis with amyloid cardiomyopathy
Generalized malaise and weakness
HLD
BPH
Chronic Urinary Retention with Ocampo
Multi-drug resistant Enterococcus faecalis CAUTI
Neuropathy
Orthostatic Hypotension
Stage 2 sacral pressure injury POA
Plan:
continue step 3 Fentanyl drip. Secretion control with glycopyrrolate
d/w hospice service and RN. D/w Family.
Anticipated Discharge: Within 24 hours
Subjective/Interval History
-
Date of Service: October 27, 2024
secretion management with glycopyrrolate
Objective Data
-
Vital Signs:
Vital Signs
Temp Pulse Resp BP Pulse Ox
98.4 F 99 16 91/76 97
10/27/24 12:07 10/27/24 12:07 10/27/24 12:07 10/27/24 12:07 10/27/24 11:00
I&O
10/26/24 10/27/24 10/28/24
06:59 06:59 06:59
Intake Total 680 / 680 20 / 20
Output Total 400 / 400 625 / 625
Balance 280 / 280 -605 / -605
Physical Exam
-
General: Respiratory Distress
HEENT: Normocephalic and Atraumatic
Respiratory: Decreased Breath Sounds; Negative Wheezes
Cardiac: Regular Rhythm and S1/S2
Neuro: Sedated
Data Reviewed
-
Total Time Spent with Patient (in minutes): 41
Labs: Labs Reviewed by me
[2024-10-27] MEDS: SUBLIMAZE 100 IV (14:55)
--- NOTE | 2024-10-27 16:18 | CM ---
Chart reviewed and patient remains on inpatient hospice services.
Plan; Inpatient hospice with [facility].
--- NOTE | 2024-10-28 01:52 | W.PN.DEATH ---
Pronouncement of
-
Called to see patient to pronounce.
No spontaneous heart tones or respirations noted.
Patient not responsive to verbal stimuli.
Patient is pronounced .
Family at the bedside
Time of : 23:50
Date of : 10/27/24
Family Notified: Yes
== END 2024-10-27 23:50 | disposition expired | DRG 683 ==
LOC: 2 NORTH 11:08
PROVIDERS: ADMITTING PHYSICIAN Internal Medicine
DX: N17.9 Acute kidney failure, unspecified (principal); E85.4 Organ-limited amyloidosis; N39.0 Urinary tract infection, site not specified; T83.518A Infection and inflammatory reaction due to other urinary catheter, initial encounter; E87.1 Hypo-osmolality and hyponatremia; I47.19 Other supraventricular tachycardia; I50.22 Chronic systolic (congestive) heart failure; Z16.24 Resistance to multiple antibiotics; I43 Cardiomyopathy in diseases classified elsewhere; N18.32 Chronic kidney disease, stage 3b; I48.0 Paroxysmal atrial fibrillation; E87.6 Hypokalemia; L89.152 Pressure ulcer of sacral region, stage 2; I95.1 Orthostatic hypotension; G62.9 Polyneuropathy, unspecified; Y84.6 Urinary catheterization as the cause of abnormal reaction of the patient, or of later complication, without mention of misadventure at the time of the procedure; N40.0 Benign prostatic hyperplasia without lower urinary tract symptoms; E78.5 Hyperlipidemia, unspecified